=== PATIENT | male | born 1960 | race Caucasian/White ===

== ENCOUNTER 2017-06-12 05:44 | Inpatient (IN) | payer BC, SELFPAY ==
[2017-06-12] VITALS (14 sets, daily range): BP systolic 91–148; BP diastolic 51–97; PULSE 49–131; RESP 12–18; TEMP 36.4–36.9; O2SAT 96–98; BMI 24.7; BMI 24.5; BMI 24.6
--- NOTE | 2017-06-12 05:46 | NURSING ---
CALLED FOR EKG PER RN REQUEST, NO OLD EKG'S IN MUSE
--- NOTE | 2017-06-12 05:56 | EKG12_ITS ---
Test Reason : CP REPEAT Blood Pressure : / mmHG Vent. Rate : 046 BPM Atrial Rate : 046 BPM P-R Int : 152 ms QRS Dur : 170 ms QT Int : 508 ms P-R-T Axes : 022 -50 100 degrees QTc Int : 444 ms Sinus bradycardia Left bundle branch block Abnormal ECG Confirmed by DOMINICK DOCKERY ([id number]), index editor TEODORO OSUNA ([id number] on 06/14/2017 12:07:22 PM Referred By: LAILA Confirmed By:DOMINICK DOCKERY
--- NOTE | 2017-06-12 06:09 | ED.DCSUM_ITS ---
- ER Visit Summary Date of Service: 06/12/17 Chief Complaint: [] Palpitations History of Present Illness: The patient is a 56 M [] complaining of palpitations. He woke with a 2 hours ago. [place] fine prior to going to sleep. He has had a recent workup 10 months ago for palpitations. Has not had anything since. They never caught an abnormal heart rhythm. He is on carvedilol 12.5 mg daily for palpitations. He sees a credit risk manager in [place]. Denies any other associated symptoms. Physical Examination: [] Vital signs reviewed General: Well-nourished well-developed Head: Normocephalic atraumatic Eyes: Pupils equal round and reactive to light extraocular movements intact ENT: TMs clear no hemotympanum no trauma Neck: Nontender full range of motion Cardiovascular: Irregular tachycardia no murmurs normal S1-S2 Respiratory: No distress clear to auscultation bilaterally chest nontender Abdomen: Soft nontender nondistended normal bowel sounds no masses Back: Nontender no CVA tenderness Extremities: Nontender active range of motion ?4 extremities no trauma Skin: Normal color no trauma Neuro alert oriented cranial nerves II through XII intact normal strength sensation reflexes Test Results: [] Emergency Department Course and Treatment: [] EKG shows atrial fibrillation with a left bundle branch block. Rate is 118. Patient given dose of Cardizem. Lab work obtained. CBC normal. Chemistry normal. Troponin less than 0.02. TSH 4.4. T4 pending. Cardizem helped control the patient's rate. Currently he is at a rate of 60 and is asymptomatic. He remains in atrial fibrillation. Discussed with the hospitalist and Dr. Rossi. She given a dose of subcu Lovenox and will be admitted for further evaluation and treatment. Treatment Plan: [] Disposition: [] Impression: [] Atrial fibrillation with rapid ventricular response Critical Care time 74 minutes This note was generated with [employer] dictation software. It may contain incorrect words, spelling, and punctuation that were not noted in review of the chart prior to signing ED Disposition - Plan for ED Patient: Chief Complaint: Palpitations Referrals: [facility] Doctor,Out of [NON-STAFF] -
[2017-06-12] MEDS: dilTIAZem 25 MG/5 ML Vial 20 MG IV BOLUS (06:11)
[2017-06-12 06:18] LABS: Absolute Lymphocyte Count 2.13 X10^3/ul (0.83-4.51); Absolute Neutrophil Count 2.2 X10^3/uL (2.0-7.7); Basophil# 0.05 X10^3/uL; Eosinophil# 0.09 X10^3/uL; Eosinophils% 1.8 % (0-5); Hematocrit 45.8 % (40-54); Hemoglobin 15.6 g/dl (13.0-16.5); Lymphocyte # 2.13 X10^3/ul (4.0); Lymphocyte % 42.9 % (19-41); Mean Corp Hgb Conc 34.1 g/gl (32-36); Mean Corpuscular Hgb 31.5 pg (27.0-32.0); Mean Corpuscular Volume 92.5 fL (80-94); Mean Platelet Vol. 12.2 fl (6.2-12.0); Monocyte# 0.51 X10^3/uL; Monocyte% 10.3 % (0-10); Neutrophil # 2.17 X10^3/uL (2.7-7.7); Neutrophil % 43.8 % (47-70); Platelet Count 157 K/mm3 (150-450); RBC Distribution Width CV 12.9 % (11.6-14.6); Red Blood Count 4.95 M/mm3 (4.6-6.2)
[2017-06-12 06:20] LABS: POSITIVE COUNT NO; POSITIVE DIFFERENTIAL NO; POSITIVE MORPHOLOGY NO
[2017-06-12 06:40] LABS: Anion Gap 9 (5-15); BUN 23 mg/dL (7-18); BUN/Creat Ratio 21.1 RATIO (10-20); Calcium,Total 9.2 mg/dL (8.5-10.1); Chloride 106 mmol/L (98-107); Creatinine, Serum 1.09 mg/dL (0.70-1.30); EST Glomerular Filtration Rate 74 mL/min (>60); Est Glom Filt Rate - Afr Amer 89 mL/min (>60); Estimated Creatinine Clearance 85.89 ml/min; Glucose 124 mg/dL (70-110); Potassium 3.7 mmol/L (3.5-5.1); Sodium Level 140 mmol/L (136-145); Thyroid Stim Hormone (TSH) 4.43 uIU/mL (0.358-3.74)
[2017-06-12 07:06] LABS: T4 Total, Thyroxin 6.6 ug/dL (4.5-12.1)
--- NOTE | 2017-06-12 07:22 | NURSING ---
DR CONNORS IN ER
[2017-06-12] MEDS: Enoxaparin 100 MG/ML Syringe 90 MG SC ×2 (07:30→18:17)
--- NOTE | 2017-06-12 08:00 | NURSING ---
PCU AFIB W RVR WAYLON
--- NOTE | 2017-06-12 10:19 | PCM.CONS.C ---
Problem List (1) Atrial fibrillation Status: Acute (2) Cardiomyopathy Status: Acute (3) Left bundle branch block (LBBB) Status: Acute Reason for Consult Date of Consultation: 06/12/17 Reason for Consultation: Atrial fibrillation, LV dysfunction, left bundle branch block History of Present Illness: The patient is a 56 year old M nondiabetic, previous smoker who quit around 10 years ago after a [id number]-[id number] smoking history, current moderate to heavy drinker of wine several glasses every evening for the past 8 years, had a catheterization approximately 35 years ago and reportedly was normal. He has recently been a patient of Dr. Teran who he saw a proximally 1 year ago for palpitations. At that time he underwent a 2D echo with Doppler on 09/14/16 which suggested an EF of 35%, and an EKG showed left bundle branch block. 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 He reportedly was placed on Coreg, lisinopril, and hydrochlorothiazide, but is never had a heart catheterization. Patient was supposed to have a event monitor but apparently that never happened. Since Dr. Teran's departure, he recently saw Dr. Ware of the [facility] on 06/05/17. A repeat echocardiogram was ordered but not performed. For a long time the patient has complained of palpitations, dating back several years, but has never appreciably had it worked up prior to July 2016. At about 4 this morning the patient awoke with palpitations but no chest pain or anginal symptoms. He reported to [facility] ER where an EKG showed atrial fibrillation with rapid ventricular response in the face of a left bundle branch block. His initial troponin was negative. The patient was given IV Cardizem and has converted back to normal sinus rhythm/sinus bradycardia with left bundle branch block. 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 He denies any angina, chest pain, or shortness of breath. Currently he is resting comfortably, no acute distress.] Past Medical History Allergies/Adverse Reactions: Allergies No Known Allergies Allergy (Verified 06/12/17 05:45) Home Medications: Ambulatory Orders Medication Instructions Recorded Aspirin E.C. [Ecotrin] 81 mg PO DAILY@0800 06/12/17 Carvedilol [Coreg] 12.5 mg PO QHS 06/12/17 Hydrochlorothiazide [Hctz] 12.5 mg PO DAILY 06/12/17 Lisinopril [Zestril] 40 mg PO DAILY 06/12/17 Simvastatin [Zocor] 20 mg PO QHS 06/12/17 Surgical History: no surgical history Smoking Status: Former smoker Review of Systems - Review of Systems General: Denies: Fever, Night Sweats, Fatigue Cardiovascular: Reports: Palpitations. Denies: Chest Discomfort, Shortness of Breath, Orthopnea, PND, Peripheral Edema, Lightheadedness, Dizziness, Near Syncope, Syncope Respiratory: Denies: Cough, Sputum Production, Hemoptysis Gastrointestinal: Denies: Hematemesis, Hematochezia, Melena Genitourinary: Denies: Dysuria, Hematuria Skin: Denies: Rash Subjectve: resting comfortably, no acute distress per Objective: Vital Signs Temp Pulse Resp BP Pulse Ox 98.1 F 51 L 16 148/77 H 97 06/12/17 09:05 06/12/17 09:05 06/12/17 09:05 06/12/17 09:05 06/12/17 09:05 Oxygen Delivery Method Room Air Weight: 191 lb 9.307 oz Body Mass Index (BMI) 24.5 General: Awake, Alert, Oriented x 3 HEENT: PERRL, EOMI, Sclera Non Icteric Neck: Supple, Good ROM, No Lymph Node Enlargement Lungs: Clear to auscultation Cardiovascular: Regular Rhythm, Normal S1, Normal S2, No Murmurs, No Rubs, No Gallops Vascular: No Carotid Bruits, Normal Femoral Pulses, Normal Radial Pulses, Normal Dorsalis Pedal Pulse, Normal Posterior Tibial Pulses Abdomen: Bowel Sounds Present, Soft, Non Tender, No HSM, No Organomegaly Extremities: No Cyanosis, No Clubbing, No edema Neurological: No Focal Motor or Sensory Deficit Rhythm: EKG: Sinus bradycardia with left bundle branch block. ECHO: Pending Stress Test: Cardiac Cath: Pending PCI: CT Surgery: Holter monitor: EPS: PPM: CXR: Chest CT Scan: Assessment/Plan 1. Cardiomyopathy: I am concerned given the patient's age, hypertension, previous tobacco use, known diagnosis of LV dysfunction with an EF by echocardiogram of 35% dated 09/14/16 that he may have coronary artery disease until proven otherwise. I recommended the patient continue baby aspirin, be loaded with Plavix 300 mg ?1 followed by 75 mill grams p.o. daily, and undergo a left her catheterization tomorrow. This will determine whether the patient has an ischemic source of his cardiomyopathy or whether it is a viral, arrhythmic, or alcohol induced cardiomyopathy. The risks/benefits of the procedure were thoroughly explained to the patient including specific attention to lack of on-site surgical backup, and the patient is agreed to proceed. In addition I recommend he undergo a repeat 2D echo with Doppler to determine if his LV function has in any way improved or worsened. I recommend continuing his Coreg, lisinopril, hydrochlorothiazide. Depending upon the outcome of the catheterization and the echocardiogram will determine whether the patient requires evaluation for atrial fibrillation ablation and/or an AICD for primary prophylaxis. I have strongly encouraged the patient to discontinue all alcohol products as this may be contributing to his cardiomyopathy and the patient is agreed. Patient quit smoking many years ago. Patient's TSH is slightly elevated but his T4 appears to be okay. It is doubtful this is a thyroid induced cardiomyopathy. 2. Hyperlipidemia: Patient comes on statin based medications given his suppose it abnormalities on his imaging study 1 year ago. Recommend obtaining a fasting lipid profile. 3. Discussed with Dr. Taylor. Thank you very much for the opportunity to participate in the cardiac care of your patient. Consultation time took place between 830 and 9 AM. Code Visit Inpatient E&M: 03063 Init Hosp L2
[2017-06-12] MEDS: Lisinopril 40 MG Tablet PO (10:30)
[2017-06-12] MEDS: Carvedilol 12.5 MG Tablet PO (10:30)
--- NOTE | 2017-06-12 10:30 | CON.PCM_ITS ---
Problem List (1) Atrial fibrillation Status: Acute (2) Cardiomyopathy Status: Acute (3) Left bundle branch block (LBBB) Status: Acute Reason for Consult Date of Consultation: 06/12/17 Reason for Consultation: Atrial fibrillation, LV dysfunction, left bundle branch block History of Present Illness: The patient is a 56 year old M nondiabetic, previous smoker who quit around 10 years ago after a [id number] smoking history, current moderate to heavy drinker of wine several glasses every evening for the past 8 years, had a catheterization approximately 35 years ago and reportedly was normal. He has recently been a patient of Dr. Teran who he saw a proximally 1 year ago for palpitations. At that time he underwent a 2D echo with Doppler on 09/14/16 which suggested an EF of 35%, and an EKG showed left bundle branch block. 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 He reportedly was placed on Coreg, lisinopril, and hydrochlorothiazide, but is never had a heart catheterization. Patient was supposed to have a event monitor but apparently that never happened. Since Dr. Teran's departure, he recently saw Dr. Ware of the [facility] on 06/05/17. A repeat echocardiogram was ordered but not performed. For a long time the patient has complained of palpitations, dating back several years, but has never appreciably had it worked up prior to July 2016. At about 4 this morning the patient awoke with palpitations but no chest pain or anginal symptoms. He reported to [facility] ER where an EKG showed atrial fibrillation with rapid ventricular response in the face of a left bundle branch block. His initial troponin was negative. The patient was given IV Cardizem and has converted back to normal sinus rhythm/sinus bradycardia with left bundle branch block. 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 He denies any angina, chest pain, or shortness of breath. Currently he is resting comfortably, no acute distress.] Past Medical History Allergies/Adverse Reactions: Allergies No Known Allergies Allergy (Verified 06/12/17 05:45) Home Medications: Ambulatory Orders Medication Instructions Recorded Aspirin E.C. [Ecotrin] 81 mg PO DAILY@0800 06/12/17 Carvedilol [Coreg] 12.5 mg PO QHS 06/12/17 Hydrochlorothiazide [Hctz] 12.5 mg PO DAILY 06/12/17 Lisinopril [Zestril] 40 mg PO DAILY 06/12/17 Simvastatin [Zocor] 20 mg PO QHS 06/12/17 Surgical History: no surgical history Smoking Status: Former smoker Review of Systems - Review of Systems General: Denies: Fever, Night Sweats, Fatigue Cardiovascular: Reports: Palpitations. Denies: Chest Discomfort, Shortness of Breath, Orthopnea, PND, Peripheral Edema, Lightheadedness, Dizziness, Near Syncope, Syncope Respiratory: Denies: Cough, Sputum Production, Hemoptysis Gastrointestinal: Denies: Hematemesis, Hematochezia, Melena Genitourinary: Denies: Dysuria, Hematuria Skin: Denies: Rash Subjectve: resting comfortably, no acute distress per Objective: Vital Signs Temp Pulse Resp BP Pulse Ox 98.1 F 51 L 16 148/77 H 97 06/12/17 09:05 06/12/17 09:05 06/12/17 09:05 06/12/17 09:05 06/12/17 09:05 Oxygen Delivery Method Room Air Weight: 191 lb 9.307 oz Body Mass Index (BMI) 24.5 General: Awake, Alert, Oriented x 3 HEENT: PERRL, EOMI, Sclera Non Icteric Neck: Supple, Good ROM, No Lymph Node Enlargement Lungs: Clear to auscultation Cardiovascular: Regular Rhythm, Normal S1, Normal S2, No Murmurs, No Rubs, No Gallops Vascular: No Carotid Bruits, Normal Femoral Pulses, Normal Radial Pulses, Normal Dorsalis Pedal Pulse, Normal Posterior Tibial Pulses Abdomen: Bowel Sounds Present, Soft, Non Tender, No HSM, No Organomegaly Extremities: No Cyanosis, No Clubbing, No edema Neurological: No Focal Motor or Sensory Deficit Rhythm: EKG: Sinus bradycardia with left bundle branch block. ECHO: Pending Stress Test: Cardiac Cath: Pending PCI: CT Surgery: Holter monitor: EPS: PPM: CXR: Chest CT Scan: Assessment/Plan 1. Cardiomyopathy: I am concerned given the patient's age, hypertension, previous tobacco use, known diagnosis of LV dysfunction with an EF by echocardiogram of 35% dated 09/14/16 that he may have coronary artery disease until proven otherwise. I recommended the patient continue baby aspirin, be loaded with Plavix 300 mg ?1 followed by 75 mill grams p.o. daily, and undergo a left her catheterization tomorrow. This will determine whether the patient has an ischemic source of his cardiomyopathy or whether it is a viral, arrhythmic, or alcohol induced cardiomyopathy. The risks/benefits of the procedure were thoroughly explained to the patient including specific attention to lack of on-site surgical backup, and the patient is agreed to proceed. In addition I recommend he undergo a repeat 2D echo with Doppler to determine if his LV function has in any way improved or worsened. I recommend continuing his Coreg, lisinopril, hydrochlorothiazide. Depending upon the outcome of the catheterization and the echocardiogram will determine whether the patient requires evaluation for atrial fibrillation ablation and/or an AICD for primary prophylaxis. I have strongly encouraged the patient to discontinue all alcohol products as this may be contributing to his cardiomyopathy and the patient is agreed. Patient quit smoking many years ago. Patient's TSH is slightly elevated but his T4 appears to be okay. It is doubtful this is a thyroid induced cardiomyopathy. 2. Hyperlipidemia: Patient comes on statin based medications given his suppose it abnormalities on his imaging study 1 year ago. Recommend obtaining a fasting lipid profile. 3. Discussed with Dr. Taylor. Thank you very much for the opportunity to participate in the cardiac care of your patient. Consultation time took place between 830 and 9 AM. Code Visit Inpatient E&M: 27077 Init Hosp L2
--- NOTE | 2017-06-12 10:40 | CASEMGMT ---
According to the [facility] website, the following are in-network tertiary facilities: [facility], [place], [facility], [facility], [facility], [facility], and . [facility]
[2017-06-12 11:39] LABS: Cholesterol 191 mg/dL (200); High Density Lipoprotein 61 mg/dL; Triglycerides 106 mg/dL; Very Low Density Lipoprotein 21 mg/dL (5-40)
[2017-06-12] MEDS: Clopidogrel Bisulfate 300 MG Tablet PO (12:15)
--- NOTE | 2017-06-12 18:40 | PCM.HP.STD ---
Problem List (1) Palpitations Status: Acute History of Present Illness Date of Admission: 06/12/17 Chief Complaint: Palpitations The patient is a 56 year old M who was seen and examined in the emergency room at [facility] after coming in for evaluation of palpitations which started approximately 4 AM this morning. Patient states he was awoken from sleep with the feeling that his heart was racing. Patient denied any chest pain or shortness of breath. Evaluation in the emergency room revealed the patient to be in atrial fibrillation with a poorly controlled ventricular response of approximately 130, patient's EKG showed atrial fibrillation with a left bundle branch block, labs were obtained on the patient which showed a normal CBC, a BUN that was elevated at 23, a troponin less than 0.02, and a glucose of 124. Patient's TSH was elevated at 4.43 but his T4 was normal. On examination, patient was alert and oriented ?3 and was a good informant, he stated that he had been seen by cardiology approximately a week ago Ros for follow-up of a known cardiomyopathy-patient states his ejection fraction was found to be 35% when he was evaluated in July 2016 by a program administrator here in [place]. Patient also had a stress test around that time which was negative for ischemia. Patient states that at his program administrator's office visit last week, he was scheduled to get an echocardiogram performed this week. Patient will be admitted to PCU, cardiac enzymes will be cycled, he will be seen in consultation by cardiology, he will be maintained on his Coreg and lisinopril, cardiology was contacted (Dr. Rossi) and he advised full anticoagulation with Lovenox. I told the patient was likely that he would undergo a cardiac catheterization for further evaluation of his cardiomyopathy. Past Medical History Allergies No Known Allergies Allergy (Verified 06/12/17 05:45) Home Medications: Ambulatory Orders Medication Instructions Recorded Aspirin E.C. [Ecotrin] 81 mg PO DAILY@0800 06/12/17 Carvedilol [Coreg] 12.5 mg PO QHS 06/12/17 Hydrochlorothiazide [Hctz] 12.5 mg PO DAILY 06/12/17 Lisinopril [Zestril] 40 mg PO DAILY 06/12/17 Simvastatin [Zocor] 20 mg PO QHS 06/12/17 Surgical History: tonsillectomy Psychiatric History: No pertinent psych hx Lives: Alone Smoking Status: Former smoker Alcohol: Occasional - Patient drinks approximately 3 drinks of alcohol nightly on average Drugs: None Review of Systems Constitutional: Denies: Anorexia, Chills, Fever, Night Sweats, Malaise, Weakness, Weight Change, Fatigue Eyes: Denies: Blurred vision, Cataracts, Conjunctivae Inflammation, Double vision, Drainage, Eyelid Inflammation HEENT: Denies: Difficulty Hearing, Difficulty Swallowing, Dysphasia, Ear Pain, Eye Pain, Head Aches, Hearing Changes, Nasal bleeding, Nasal Congestion, Post Nasal Drip Cardiovascular: Reports: Palpitations. Denies: Chest Pain, Claudication, Chest Pressure, Chest Tightness, Edema, Heaviness, Light Headedness, Orthopnea, Paroxysmal Noc. Dyspnea, Syncope Respiratory: Denies: Cough, Hemoptysis, Pleuritic Pain, Shortness of Breath, Shortness of breath at rest, Shortness of breath upon exertion, Sputum production, Wheezing Gastrointestinal: Denies: Abdominal Pain, Constipation, Diarrhea, Hematemesis, Hematochezia, Nausea, Melena, Vomiting Genitourinary: Denies: Dysuria, Frequency, Hematuria, Hesitancy, Incontinence, Nocturia, Retention, Urgency Musculoskeletal: Denies: Back Pain, Foot Pain, Hand Pain, Joint Pain, Joint stiffness, Joint swelling, Joint Tenderness, Leg Pain Skin: Denies: Dryness, Jaundice, Lesions, Pruritis, Rash Neurological: Denies: Blurred vision, Double vision, Change in Speech, Slurred speech, Difficulty swallowing, Focal weakness, Headaches, Incoordination, Numbness, Tingling Psychiatric: Denies: Anxiety, Depression, Homicidal Ideations, Suicidal Ideations Endocrine: Denies: Change in Body Habitus, Heat/ Cold Intolerance, Polydipsia, Polyuria Hematologic/ Lymphatic: Denies: Adenopathy, Anemia, Easy Bruising, Easy Bleeding, Petechiae, Purpura VTE Information - Inpt Only VTE Present on Admission: No VTE Mechan Device Prophylaxis: None VTE Pharm Prophylaxis ordered?: No Reason prophylaxis not ordered:: Medical Contraindication - he will be fully anticoagulated with Lovenox Patient Problems: Active and Suspected Problems Atrial fibrillation (Acute) Cardiomyopathy (Acute) Left bundle branch block (LBBB) (Acute) Palpitations (Acute) - Physical Exam General: Alert, Oriented x3, Cooperative, No apparent distress, Well developed, Well nourished HEENT: Atraumatic, PERRLA, EOMI, Normocephalic Oral: Moist Mucosa Neck: Supple, No JVD, Negative Carotid Bruits, No Nuchal Rigidity, Trachea Midline, Thyroid Normal Size and Texture Lungs: Clear to auscultation, Normal air movement, No rhonchi, No wheeze, No rales Cardiovascular: No murmurs, PMI Normal, Irregular Rate, No rub noted, No Gallop Abdomen: Bowel Sounds Present, Soft, Non Tender, Non-Distended, No hernias noted Extremities: No clubbing, No cyanosis, No edema, Capillary Refill Less than 3 Seconds Skin: No rashes, No breakdown Musculoskeletal: No Tenderness to Palpation of Joints or Extremities Neurological: Cranial nerves II-XII grossly intact, Neuro grossly intact, Sensory exam intact to light touch and pain, Coordination normal Psych/Mental Status: Normal Affect, Appropriate, Alert and oriented to time, place, person, mood and affect Vital Signs Temp Pulse Resp BP Pulse Ox 98.3 F 56 L 16 133/76 H 97 06/12/17 14:00 06/12/17 15:07 06/12/17 14:00 06/12/17 14:00 06/12/17 09:05 Oxygen Delivery Method Room Air Weight: 86.9 kg Body Mass Index (BMI) 24.5 Intake and Output for Last 24 Hours 06/10/17 06/11/17 06/12/17 23:59 23:59 23:59 Intake Total 800 / 800 Balance 800 / 800 Laboratory Tests Past 24 Hrs 06/12/17 06/12/17 06/12/17 10:10 10:10 14:07 Troponin I < 0.02 < 0.02 Triglycerides 106 Cholesterol 191 LDL Cholesterol 109 VLDL Cholesterol 21 HDL Cholesterol 61 Assessment/Plan Active and Suspected Problems Atrial fibrillation (Acute) Cardiomyopathy (Acute) Left bundle branch block (LBBB) (Acute) Palpitations (Acute) #1 acute atrial fibrillation with rapid ventricular response-patient will be admitted to PCU, he will be seen in consultation by cardiology, rate control will be attempted, cardiac enzymes will be cycled, he will remain on full anticoagulation with Lovenox #2 nonischemic cardiomyopathy by history-according to patient's records which I obtained from the [facility], patient has a diagnosis of nonischemic cardiomyopathy. Again, it is likely that cardiology here will recommend a cardiac catheterization to confirm that the patient does not have occlusive coronary disease. #3 left bundle branch block-chronic Code Visit Inpatient E&M: 50382 Init Hosp L3
--- NOTE | 2017-06-12 18:49 | HP.PCM_ITS ---
Problem List (1) Palpitations Status: Acute History of Present Illness Date of Admission: 06/12/17 Chief Complaint: Palpitations The patient is a 56 year old M who was seen and examined in the emergency room at [facility] after coming in for evaluation of palpitations which started approximately 4 AM this morning. Patient states he was awoken from sleep with the feeling that his heart was racing. Patient denied any chest pain or shortness of breath. Evaluation in the emergency room revealed the patient to be in atrial fibrillation with a poorly controlled ventricular response of approximately 130, patient's EKG showed atrial fibrillation with a left bundle branch block, labs were obtained on the patient which showed a normal CBC, a BUN that was elevated at 23, a troponin less than 0.02, and a glucose of 124. Patient's TSH was elevated at 4.43 but his T4 was normal. On examination, patient was alert and oriented ?3 and was a good informant, he stated that he had been seen by cardiology approximately a week ago Ros for follow-up of a known cardiomyopathy-patient states his ejection fraction was found to be 35% when he was evaluated in July 2016 by a project consultant here in [place]. Patient also had a stress test around that time which was negative for ischemia. Patient states that at his project consultant's office visit last week , he was scheduled to get an echocardiogram performed this week. Patient will be admitted to PCU, cardiac enzymes will be cycled, he will be seen in consultation by cardiology, he will be maintained on his Coreg and lisinopril, cardiology was contacted (Dr. Rossi) and he advised full anticoagulation with Lovenox. I told the patient was likely that he would undergo a cardiac catheterization for further evaluation of his cardiomyopathy. Past Medical History Allergies No Known Allergies Allergy (Verified 06/12/17 05:45) Home Medications: Ambulatory Orders Medication Instructions Recorded Aspirin E.C. [Ecotrin] 81 mg PO DAILY@0800 06/12/17 Carvedilol [Coreg] 12.5 mg PO QHS 06/12/17 Hydrochlorothiazide [Hctz] 12.5 mg PO DAILY 06/12/17 Lisinopril [Zestril] 40 mg PO DAILY 06/12/17 Simvastatin [Zocor] 20 mg PO QHS 06/12/17 Surgical History: tonsillectomy Psychiatric History: No pertinent psych hx Lives: Alone Smoking Status: Former smoker Alcohol: Occasional - Patient drinks approximately 3 drinks of alcohol nightly on average Drugs: None Review of Systems Constitutional: Denies: Anorexia, Chills, Fever, Night Sweats, Malaise, Weakness , Weight Change, Fatigue Eyes: Denies: Blurred vision, Cataracts, Conjunctivae Inflammation, Double vision, Drainage, Eyelid Inflammation HEENT: Denies: Difficulty Hearing, Difficulty Swallowing, Dysphasia, Ear Pain, Eye Pain, Head Aches, Hearing Changes, Nasal bleeding, Nasal Congestion, Post Nasal Drip Cardiovascular: Reports: Palpitations. Denies: Chest Pain, Claudication, Chest Pressure, Chest Tightness, Edema, Heaviness, Light Headedness, Orthopnea, Paroxysmal Noc. Dyspnea, Syncope Respiratory: Denies: Cough, Hemoptysis, Pleuritic Pain, Shortness of Breath, Shortness of breath at rest, Shortness of breath upon exertion, Sputum production, Wheezing Gastrointestinal: Denies: Abdominal Pain, Constipation, Diarrhea, Hematemesis, Hematochezia, Nausea, Melena, Vomiting Genitourinary: Denies: Dysuria, Frequency, Hematuria, Hesitancy, Incontinence, Nocturia, Retention, Urgency Musculoskeletal: Denies: Back Pain, Foot Pain, Hand Pain, Joint Pain, Joint stiffness, Joint swelling, Joint Tenderness, Leg Pain Skin: Denies: Dryness, Jaundice, Lesions, Pruritis, Rash Neurological: Denies: Blurred vision, Double vision, Change in Speech, Slurred speech, Difficulty swallowing, Focal weakness, Headaches, Incoordination, Numbness, Tingling Psychiatric: Denies: Anxiety, Depression, Homicidal Ideations, Suicidal Ideations Endocrine: Denies: Change in Body Habitus, Heat/ Cold Intolerance, Polydipsia, Polyuria Hematologic/ Lymphatic: Denies: Adenopathy, Anemia, Easy Bruising, Easy Bleeding , Petechiae, Purpura VTE Information - Inpt Only VTE Present on Admission: No VTE Mechan Device Prophylaxis: None VTE Pharm Prophylaxis ordered?: No Reason prophylaxis not ordered:: Medical Contraindication - he will be fully anticoagulated with Lovenox Patient Problems: Active and Suspected Problems Atrial fibrillation (Acute) Cardiomyopathy (Acute) Left bundle branch block (LBBB) (Acute) Palpitations (Acute) - Physical Exam General: Alert, Oriented x3, Cooperative, No apparent distress, Well developed, Well nourished HEENT: Atraumatic, PERRLA, EOMI, Normocephalic Oral: Moist Mucosa Neck: Supple, No JVD, Negative Carotid Bruits, No Nuchal Rigidity, Trachea Midline, Thyroid Normal Size and Texture Lungs: Clear to auscultation, Normal air movement, No rhonchi, No wheeze, No rales Cardiovascular: No murmurs, PMI Normal, Irregular Rate, No rub noted, No Gallop Abdomen: Bowel Sounds Present, Soft, Non Tender, Non-Distended, No hernias noted Extremities: No clubbing, No cyanosis, No edema, Capillary Refill Less than 3 Seconds Skin: No rashes, No breakdown Musculoskeletal: No Tenderness to Palpation of Joints or Extremities Neurological: Cranial nerves II-XII grossly intact, Neuro grossly intact, Sensory exam intact to light touch and pain, Coordination normal Psych/Mental Status: Normal Affect, Appropriate, Alert and oriented to time, place, person, mood and affect Vital Signs Temp Pulse Resp BP Pulse Ox 98.3 F 56 L 16 133/76 H 97 06/12/17 14:00 06/12/17 15:07 06/12/17 14:00 06/12/17 14:00 06/12/17 09:05 Oxygen Delivery Method Room Air Weight: 86.9 kg Body Mass Index (BMI) 24.5 Intake and Output for Last 24 Hours 06/10/17 06/11/17 06/12/17 23:59 23:59 23:59 Intake Total 800 / 800 Balance 800 / 800 Laboratory Tests Past 24 Hrs 06/12/17 06/12/17 06/12/17 10:10 10:10 14:07 Troponin I < 0.02 < 0.02 Triglycerides 106 Cholesterol 191 LDL Cholesterol 109 VLDL Cholesterol 21 HDL Cholesterol 61 Assessment/Plan Active and Suspected Problems Atrial fibrillation (Acute) Cardiomyopathy (Acute) Left bundle branch block (LBBB) (Acute) Palpitations (Acute) #1 acute atrial fibrillation with rapid ventricular response-patient will be admitted to PCU, he will be seen in consultation by cardiology, rate control will be attempted, cardiac enzymes will be cycled, he will remain on full anticoagulation with Lovenox #2 nonischemic cardiomyopathy by history-according to patient's records which I obtained from the [facility], patient has a diagnosis of nonischemic cardiomyopathy. Again, it is likely that cardiology here will recommend a cardiac catheterization to confirm that the patient does not have occlusive coronary disease. #3 left bundle branch block-chronic Code Visit Inpatient E&M: 75914 Init Hosp L3
[2017-06-12] MEDS: Atorvastatin Calcium 10 MG Tablet PO (22:28)
[2017-06-13] VITALS (16 sets, daily range): BP systolic 125–155; BP diastolic 69–81; PULSE 50–66; RESP 16–18; TEMP 36.4–36.9; O2SAT 91–98
[2017-06-13 05:43] LABS: Absolute Neutrophil Count 2.4 X10^3/uL (2.0-7.7); Basophil# 0.03 X10^3/uL; Basophil% 0.6 % (0-1); Eosinophil# 0.14 X10^3/uL; Eosinophils% 2.6 % (0-5); Hemoglobin 14.9 g/dl (13.0-16.5); Lymphocyte % 43.3 % (19-41); Mean Corp Hgb Conc 33.9 g/gl (32-36); Mean Corpuscular Hgb 31.4 pg (27.0-32.0); Mean Corpuscular Volume 92.8 fL (80-94); Mean Platelet Vol. 12.1 fl (6.2-12.0); Monocyte# 0.48 X10^3/uL; Neutrophil # 2.35 X10^3/uL (2.7-7.7); Neutrophil % 44.3 % (47-70); Platelet Count 136 K/mm3 (150-450); RBC Distribution Width CV 12.8 % (11.6-14.6); RBC Distribution Width SD 43.1 fl (35.1-43.9); Red Blood Count 4.74 M/mm3 (4.6-6.2); White Blood Count 5.3 K/mm3 (4.4-11.0)
[2017-06-13 05:49] LABS: International Normalized Ratio 1.1; Prothrombin Time (Protime)PT. 14.2 SECONDS (11.7-14.9)
[2017-06-13 05:50] LABS: Partial Thromboplast Time 29.5 Seconds (24.1-36.2)
[2017-06-13 05:54] LABS: Anion Gap 8 (5-15); BUN 19 mg/dL (7-18); BUN/Creat Ratio 19.2 RATIO (10-20); Calcium,Total 8.9 mg/dL (8.5-10.1); Chloride 107 mmol/L (98-107); Creatinine, Serum 0.99 mg/dL (0.70-1.30); EST Glomerular Filtration Rate 82 mL/min (>60); Est Glom Filt Rate - Afr Amer 100 mL/min (>60); Estimated Creatinine Clearance 94.56 ml/min; Glucose 109 mg/dL (70-110); Potassium 3.8 mmol/L (3.5-5.1); Sodium Level 141 mmol/L (136-145)
--- NOTE | 2017-06-13 05:55 | EKG12_ITS ---
Test Reason : CP Blood Pressure : / mmHG Vent. Rate : 118 BPM Atrial Rate : 125 BPM P-R Int : 000 ms QRS Dur : 156 ms QT Int : 368 ms P-R-T Axes : 000 -25 102 degrees QTc Int : 515 ms Atrial fibrillation Left bundle branch block Abnormal ECG Confirmed by DOMINICK DOCKERY ([id number]), video editor TEODORO OSUNA ([id number]) on 06/14/2017 12:07:37 PM Referred By: LAILA Confirmed By:DOMINICK DOCKERY
--- NOTE | 2017-06-13 05:55 | ECHOD_ITS ---
Reason For Study: Afib-Flutter Procedure This was a 2D Doppler, Color Flow transthoracic echocardiogram. Exam performed portable in patient room. Left Ventricle Moderately dilated left ventricle. The estimated ejection fraction is 25 %. Septal motion consistent with IVCD. Stage 1 diastolic dysfunction. There is moderate to severe global hypokinesis of the left ventricle. Right Ventricle Mildly dilated right ventricle. Normal systolic function. Atria Normal left atrium. Normal right atrium. Normal atrial septum. Mitral Valve The mitral valve is structurally normal. No prolapse or stenosis seen. Mild (1+) mitral valve insufficiency. Tricuspid Valve Normal tricuspid valve. Mild (1+) tricuspid valve insufficiency. Unable to estimate RV systolic pressure/pulmonary artery pressure due to technically difficult study. Aortic Valve Trisinus/trileaflet aortic valve. Mild diffuse aortic valve thickening. Trivial aortic valve insufficiency. Pulmonic Valve Normal pulmonic valve. Great Vessels Normal aortic root. Normal arch. Normal inferior vena cava. Inferior vena cava collapse with sniff. Pericardium/Pleural No pericardial effusion. MMode/2D Measurements & Calculations LVIDd: 5.7 cm IVSd: 1.5 cm LVOT diam: 2.0 cm LVIDs: 4.8 cm LVPWd: 0.91 cm LVOT area: 3.2 cm2 RVDd: 3.5 cm FS: 16.6 % Ao root diam: 3.8 cm LAV(MOD-bp): 48.9 ml LVAd ap4: 46.6 cm2 ACS: 2.1 cm LAV(MOD-bp) Indexed: 23.0 ml/m2 EDV(MOD-sp4): 180.1 ml LA dimension: 3.8 cm LAV(MOD-sp2): 43.6 ml EDV(sp4-el): 185.4 ml LAV(MOD-sp4): 51.5 ml LVAs ap4: 33.2 cm2 ESV(MOD-sp4): 110.1 ml ESV(sp4-el): 112.6 ml EF(MOD-sp4): 38.8 % EF(sp4-el): 39.3 % SV(MOD-sp4): 70.0 ml SV(sp4-el): 72.8 ml LA A4 area: 18.5 cm2 RA A4 area: 16.1 cm2 Time Measurements MV dec time: 0.31 sec Doppler Measurements & Calculations MV E max robbi: 60.0 cm/sec Med Peak E' Robbi: 5.4 cm/sec MV V2 max: 92.1 cm/sec MV A max robbi: 87.2 cm/sec E/E' med: 11.2 MV max P.4 mmHg MV E/A: 0.69 MV V2 mean: 44.8 cm/sec MV mean P.94 mmHg MV V2 VTI: 23.6 cm MVA(VTI): 3.1 cm2 MV P1/2t max robbi: 72.7 cm/sec Ao V2 max: 151.0 cm/sec LV V1 max: 119.7 cm/sec MV P1/2t: 97.6 msec Ao max P.1 mmHg LV V1 max P.7 mmHg MV dec slope: 218.0 cm/sec2 Ao V2 mean: 91.6 cm/sec LV V1 mean P.4 mmHg MVA(P1/2t): 2.3 cm2 Ao mean P.0 mmHg LV V1 mean: 70.6 cm/sec Ao V2 VTI: 29.3 cm LV V1 VTI: 23.3 cm ESTEBAN(I,D): 2.5 cm2 ESTEBAN(V,D): 2.5 cm2 SV(LVOT): 74.3 ml PA V2 max: 111.0 cm/sec Interpretation Summary Moderately dilated left ventricle. The estimated ejection fraction is 25 %. Stage 1 diastolic dysfunction. There is moderate to severe global hypokinesis of the left ventricle. Mild (1+) mitral valve insufficiency. Mild (1+) tricuspid valve insufficiency. Unable to estimate RV systolic pressure/pulmonary artery pressure due to technically difficult study. Trivial aortic valve insufficiency. There is no comparison study available. Ordering Physician: Yemi Taylor Referring Physician: Anabelle PCP Performed By: Daron Mcdaniel RCS
[2017-06-13 06:21] LABS: POSITIVE COUNT NO; POSITIVE DIFFERENTIAL NO; POSITIVE MORPHOLOGY NO
[2017-06-13] MEDS: Clopidogrel Bisulfate 75 MG Tablet PO (06:59)
[2017-06-13] MEDS: Aspirin 81 MG TAB.CHEW PO (06:59)
[2017-06-13] MEDS: Lisinopril 40 MG Tablet PO (07:00)
[2017-06-13] MEDS: 0.9% Normal Saline 1,000 ML 15 ML IV (08:21)
[2017-06-13] MEDS: DiphenhydrAMINE 25 MG Capsule 50 MG PO (10:20)
--- NOTE | 2017-06-13 11:35 | CL.D_ITS ---
Patient Name: AMPARO LAYTON Study Date: 06/13/2017 Performing: Abdoul Rossi MD Ht: 74.01 inches 188 cm : 1960 Wt: 191.8 lbs 87 kg Age: 56 Gender: male BSA: 2.14 PROCEDURE(S) PERFORMED LH66-CPL/COR/LV CLINICAL PROFILE AND INDICATIONS INDICATIONS: Abnormal cardiac stress test, Dilated Idiopathic Cardiomyopathy, Atrial Fibrillation Stress/Imaging Stress Test w/SPECT MPI: Yes Result: Positive Intermediate RiskStress Test with SP ECT MPI: Positive Intermediate Risk Angina Classification Anginal Classification w/in 2 Weeks: CCS IV CAD Presentations: Unstable angina. Comorbidities/Risk Factors: Hypertension Dyslipidemia Prior CHF CONCLUSIONS Non obstructive coronary arteries Global LV systolic dysfunction- Mild RECOMMENDATIONS ASA Indefinitely Management as per referring President And Chief Executive Officer D/c all ETOH, cardiac rehab and repeat echo in 3 months. If LV function still <35%, consider AICD. D/c plavix, start xarelto or eliquis for PAF and LV dysfunction. Will d/w Dr Owusu Pt wishes to f/u with Dr Rossi. DESCRIPTION OF PROCEDURE The patient arrived to the procedure lab. The risks and benefits of the procedure as well as a full d escription of our services here and current unavailability of surgical backup were fully explained to the patient and/or their significant other prior to the catheterization. The Timeout was completed, verifying the correct patient and procedure. The patient's procedural site was prepped and draped in the usual fashion. Local anesthetic was given subcutaneously to right groin region with Lidocaine 2%. Using a modified Seldinger technique, arterial access was obtained via the right femoral artery, a 4 Fr sheath was inserted Left Coronary Artery selective angiography was performed in multiple views us ing a 4 Fr. JL5 catheter. Right Coronary Artery selective angiography was then performed in multiple views using a 4 Fr. 3DRC catheter. Left Ventriculography was performed in ADAMS projection using a 4 Fr . Pigtail catheter. LV to AO pullback pressures were then recorded. CORONARY ANGIOGRAPHY DOMINANCE: Right Dominant LEFT HEART ASSESSMENT Left Ventricular Ejection Fraction: by LV Gram 45-50 % Global Hypokinesis - Mild Depressed Left Ventricular systolic function LEFT MAIN: Angiographically normal LEFT ANTERIOR DECENDING ARTERY: Angiographically normal DIAGONAL 1: Ostial - 30 % Stenosis CIRCUMFLEX ARTERY: Angiographically normal RAMUS: Angiographically normal RIGHT CORONARY ARTERY: Angiographically normal COMPLICATIONS No Complications PROCEDURE MEDICATIONS Versed 1 mg IV Oxygen: 2 L/min via nasal cannula SUMMARY OF HEMODYNAMIC DATA Time AIR REST ECG 11:06:04 AO 140/73 (98) SA 11:15:22 LV 146/-11, 11 11:21:18 LV 144/-11, 9 11:21:25 LVp 143/-11, 4 11:21:38 AOp 152/66 (94) 11:21:43 Signed By Abdoul Rossi MD On 06/13/2017 11:35:03 Abdoul Rossi MD
--- NOTE | 2017-06-13 12:12 | CASEMGMT ---
Face to Face with patient for initial transition planning/care coordination assessment. RN EDGAR introduced self and role at [facility], pt voices understanding and consents to assessment at this time. Pt sitting up in bed in no distress at this time. Pt A/O x4 at this time and answers all questions appropriately at this time. Care providers, pharmacy, and demographics verified. See attached link. Pt voices no further concerns/needs at this time. Advised pt to ask for CM if any further questions/concerns/needs arise, voices understanding. Referral to Cookie OSEI for AD info at this time. PLAN: [facility]
--- NOTE | 2017-06-13 15:36 | DCINST_ITS ---
- Discharge Diagnoses Current Active Problems: Current Active and Chronic Problems Atrial fibrillation (Acute) Cardiomyopathy (Acute) Left bundle branch block (LBBB) (Acute) Palpitations (Acute) You will use the following diet at home:: No restrictions Your food should be the consistency of: Regular Your liquids should be the consistency of: Regular/Thin Discharge Activity: Return to Normal Activity Weight Bearing Status: Full weight bearing Allergies/Adverse Reactions: Allergies No Known Allergies Allergy (Verified 06/12/17 05:45) Medications to take at Discharge Aspirin E.C. [Ecotrin] 81 mg PO DAILY@0800 06/12/17 Hydrochlorothiazide [Hctz] 12.5 mg PO DAILY 06/12/17 Lisinopril [Zestril] 40 mg PO DAILY 06/12/17 Aspirin [Aspirin, Baby] 81 mg PO DAILY@0800 tab.chew 06/13/17 Atorvastatin Calcium [Lipitor] 40 mg PO DAILY #30 tab 06/13/17 Carvedilol [Coreg (Beta Last)] 12.5 mg PO BID #60 tab 06/13/17 Rivaroxaban [Xarelto] 20 mg PO DAILY #30 tab 06/13/17 The following prescriptions were given: Atorvastatin Calcium [Lipitor] 40 mg PO DAILY #30 tab Rivaroxaban [Xarelto] 20 mg PO DAILY #30 tab Carvedilol [Coreg (Beta Last)] 12.5 mg PO BID #60 tab Primary Care Physician: [facility] Doctor,Out of [NON-STAFF] - Please follow up with your Primary Care Physician in: in 2-3 weeks Please Follow Up With: Abdoul Rossi MD When: in 4 weeks
--- NOTE | 2017-06-13 16:10 | NURSING ---
WALKED PATIENT IN [place] AT THIS TIME WITH TACO STAFUFER AT SIDE. PT DENIES PAIN AT SITE - SITE WNL - NO SIGNS OF BLEEDING OR REDNESS. RLE PULSES +2. PATIENT TO BE DISCHARGED.
--- NOTE | 2017-06-13 16:18 | NURSING ---
REVIEWED AND AGREED W/ Humberto ECHEVERRIA'S CHARTING.
--- NOTE | 2017-06-13 16:38 | NURSING ---
REVIEWED AND AGREED W/ Humberto ECHEVERRIA'S CHARTING.
--- NOTE | 2017-06-17 08:31 | PCM.DC.SUM ---
Discharge Date and Diagnosis Date of Admission: 06/12/17 Date of Discharge: 06/13/17 - Primary Discharge Diagnosis #1 new onset atrial fibrillation with RVR #2 nonischemic cardiomyopathy #3 nonocclusive coronary artery disease #4 hypertension Hospital Course and Treatment Operations: None Procedures: 2-D Echocardiogram, Cardiac catheterization Summary of Care Provided: The patient is a 56 year old M seen in the emergency room at [facility] with chief complaint of palpitations which started early in the morning of 06/12/17, patient has a history of cardiomyopathy, he had recently seen a business services specialist sales in the [place]. Evaluation in the emergency room revealed the patient to be in atrial fibrillation with a rapid ventricular response of 130, patient was given IV Cardizem which slowed his rate. Workup in the emergency room revealed normal troponins, EKG showed atrial fibrillation with left bundle branch block. His care was discussed with the business services specialist sales on-call by the emergency room physician and the hospitalist service was called for admission. Patient was admitted to PCU, shortly thereafter he converted to normal sinus rhythm, was seen in consultation by cardiology and his medications were adjusted. Patient underwent an echocardiogram which showed a reduced ejection fraction of 25%, he underwent a cardiac catheterization which showed nonocclusive coronary artery disease. On 06/13/17, patient was seen and examined felt to be in stable condition for discharge home Discharge Activity: Return to Normal Activity Weight Bearing Status: Full weight bearing Home Medications: Medications to take at Discharge Aspirin E.C. [Ecotrin] 81 mg PO DAILY@0800 06/12/17 Hydrochlorothiazide [Hctz] 12.5 mg PO DAILY 06/12/17 Lisinopril [Zestril] 40 mg PO DAILY 06/12/17 Aspirin [Aspirin, Baby] 81 mg PO DAILY@0800 tab.chew 06/13/17 Atorvastatin Calcium [Lipitor] 40 mg PO DAILY #30 tab 06/13/17 Carvedilol [Coreg (Beta Last)] 12.5 mg PO BID #60 tab 06/13/17 Rivaroxaban [Xarelto] 20 mg PO DAILY #30 tab 06/13/17 Following Prescrptions Were Given to Patient: Atorvastatin Calcium [Lipitor] 40 mg PO DAILY #30 tab Rivaroxaban [Xarelto] 20 mg PO DAILY #30 tab Carvedilol [Coreg (Beta Last)] 12.5 mg PO BID #60 tab Primary Care Physician: Manish Doctor,Out of [NON-STAFF] - Please follow up with your Primary Care Physician in: in 2-3 weeks Please Follow Up With: Abdoul Rossi MD When: in 4 weeks Disposition: Home Minutes spent on discharge:: 32 Patient Condition:: Stable Meaningful Use Info Meaningful Use Diagnoses (Choose all that apply): None applicable Code Visit Inpatient E&M: 46780 Disch Hosp
--- NOTE | 2017-06-17 08:36 | DS.PCM_ITS ---
Discharge Date and Diagnosis Date of Admission: 06/12/17 Date of Discharge: 06/13/17 - Primary Discharge Diagnosis #1 new onset atrial fibrillation with RVR #2 nonischemic cardiomyopathy #3 nonocclusive coronary artery disease #4 hypertension Hospital Course and Treatment Operations: None Procedures: 2-D Echocardiogram, Cardiac catheterization Summary of Care Provided: The patient is a 56 year old M seen in the emergency room at [facility] with chief complaint of palpitations which started early in the morning of 06/12/17, patient has a history of cardiomyopathy, he had recently seen a associate professor of surgery in the [place]. Evaluation in the emergency room revealed the patient to be in atrial fibrillation with a rapid ventricular response of 130, patient was given IV Cardizem which slowed his rate. Workup in the emergency room revealed normal troponins, EKG showed atrial fibrillation with left bundle branch block. His care was discussed with the associate professor of surgery on-call by the emergency room physician and the hospitalist service was called for admission. Patient was admitted to PCU, shortly thereafter he converted to normal sinus rhythm, was seen in consultation by cardiology and his medications were adjusted. Patient underwent an echocardiogram which showed a reduced ejection fraction of 25%, he underwent a cardiac catheterization which showed nonocclusive coronary artery disease. On 06/13/17, patient was seen and examined felt to be in stable condition for discharge home Discharge Activity: Return to Normal Activity Weight Bearing Status: Full weight bearing Home Medications: Medications to take at Discharge Aspirin E.C. [Ecotrin] 81 mg PO DAILY@0800 06/12/17 Hydrochlorothiazide [Hctz] 12.5 mg PO DAILY 06/12/17 Lisinopril [Zestril] 40 mg PO DAILY 06/12/17 Aspirin [Aspirin, Baby] 81 mg PO DAILY@0800 tab.chew 06/13/17 Atorvastatin Calcium [Lipitor] 40 mg PO DAILY #30 tab 06/13/17 Carvedilol [Coreg (Beta Last)] 12.5 mg PO BID #60 tab 06/13/17 Rivaroxaban [Xarelto] 20 mg PO DAILY #30 tab 06/13/17 Following Prescrptions Were Given to Patient: Atorvastatin Calcium [Lipitor] 40 mg PO DAILY #30 tab Rivaroxaban [Xarelto] 20 mg PO DAILY #30 tab Carvedilol [Coreg (Beta Last)] 12.5 mg PO BID #60 tab Primary Care Physician: Manish Doctor,Out of [NON-STAFF] - Please follow up with your Primary Care Physician in: in 2-3 weeks Please Follow Up With: Abdoul Rossi MD When: in 4 weeks Disposition: Home Minutes spent on discharge:: 32 Patient Condition:: Stable Meaningful Use Info Meaningful Use Diagnoses (Choose all that apply): None applicable Code Visit Inpatient E&M: 49928 Disch Hosp
== END 2017-06-13 16:27 | disposition home or self-care (01) | DRG 287 ==
LOC: ED 06:40 → PCU 08:09
PROVIDERS: Internal Medicine Cardiovascular Disease; Admitting Provider Internal Medicine; Emergency Provider Emergency Medicine; Visit Provider Internal Medicine
DX: I48.91 Unspecified atrial fibrillation (principal); I42.9 Cardiomyopathy, unspecified; I44.7 Left bundle-branch block, unspecified; Z87.891 Personal history of nicotine dependence; I10 Essential (primary) hypertension; I25.10 Atherosclerotic heart disease of native coronary artery without angina pectoris
CPT/HCPCS: 36415; 80048; 80061; 84436; 84443; 84484; 85025; 85610; 85730; 93005; 93306; 93458; 99152; 99283; 99406; J7030; A4216; C1769; C1894; Q9967

== ENCOUNTER → 2017-09-26 09:45 | Outpatient (CLI) | payer BC, SELFPAY ==
--- NOTE | 2017-09-26 09:47 | ECHOD_ITS ---
Reason For Study: Cardiomyopathy Procedure This was a 2D Doppler, Color Flow transthoracic echocardiogram. The study was technically difficult. Exam performed in department. Left Ventricle Severely dilated left ventricle. The estimated ejection fraction is 25 %. Septal motion consistent with IVCD. Stage 2 diastolic dysfunction. There is severe global hypokinesis of the left ventricle. Right Ventricle Normal size and thickness. Normal systolic function. Atria Normal left atrium. Normal right atrium. Normal atrial septum. Mitral Valve The mitral valve is structurally normal. No prolapse or stenosis seen. Mild (1+) mitral valve insufficiency. Tricuspid Valve Normal tricuspid valve. Trivial tricuspid valve insufficiency. Right ventricular systolic pressure estimated to be 39 mmHg. Mild pulmonary hypertension. Aortic Valve Trisinus/trileaflet aortic valve. Mild diffuse aortic valve thickening. Trivial aortic valve insufficiency. Pulmonic Valve Normal pulmonic valve. Trivial pulmonic valve insufficiency. Great Vessels Normal aortic root. Normal arch. Normal inferior vena cava. Inferior vena cava collapse with sniff. Pericardium/Pleural No pericardial effusion. MMode/2D Measurements & Calculations LVIDd: 5.7 cm IVSd: 1.5 cm Ao root diam: 3.8 cm LVIDs: 4.5 cm LVPWd: 1.2 cm LA dimension: 4.2 cm RVDd: 3.1 cm FS: 20.7 % LAV(MOD-bp): 72.0 ml LA A4 area: 18.6 cm2 RA A4 area: 16.0 cm2 LAV(MOD-bp) Indexed: 33.8 ml/m2 LAV(MOD-sp2): 56.4 ml LAV(MOD-sp4): 62.9 ml Doppler Measurements & Calculations MV E max robbi: 60.8 cm/sec Lat Peak E' Robbi: 6.5 cm/sec Med Peak E' Robbi: 5.0 cm/sec MV A max robbi: 85.3 cm/sec E/E' lat: 9.3 E/E' med: 12.2 MV E/A: 0.71 Ao V2 max: 122.2 cm/sec LV V1 max: 87.6 cm/sec PA V2 max: 69.1 cm/sec Ao max P.0 mmHg LV V1 max P.1 mmHg TR max robbi: 281.4 cm/sec TR max P.8 mmHg Interpretation Summary Severely dilated left ventricle. The estimated ejection fraction is 25 %. There is severe global hypokinesis of the left ventricle. Stage 2 diastolic dysfunction. Mild (1+) mitral valve insufficiency. Trivial tricuspid valve insufficiency. Right ventricular systolic pressure estimated to be 39 mmHg. Mild pulmonary hypertension. Trivial aortic valve insufficiency. Compared to echo report dated 06/13/2017, no appreciable changes noted. Ordering Physician: Saqib Etienne Referring Physician: NO PCP Performed By: Poonam Roca RDCS, RVT
== END ==
PROVIDERS: Visit Provider Nurse Practitioner Family
DX: I42.9 Cardiomyopathy, unspecified (principal); I48.91 Unspecified atrial fibrillation; R00.2 Palpitations
CPT/HCPCS: 93306

== ENCOUNTER → 2018-07-10 07:50 | Outpatient (CLI) | payer BC, SELFPAY ==
[2018-04-18 15:02] VITALS: BMI 23.6
--- NOTE | 2018-07-10 07:51 | ECHOCS_ITS ---
Reason For Study: CHF Procedure Contrast injection was performed. Exam performed in department. Left Ventricle Moderately dilated left ventricle. Mid cavitary false tendon noted. The estimated ejection fraction is 35-40 %. Stage 1 diastolic dysfunction. Septal motion consistent with IVCD. There is moderate to severe global hypokinesis of the left ventricle. Right Ventricle Normal size and thickness. ICD or pacer leads identified within the right ventricle. Normal systolic function. Atria Normal left atrium. Normal right atrium. Normal atrial septum. Saline contrast study demonstrates small right to left interatrial shunt. Mitral Valve The mitral valve is structurally normal. No prolapse or stenosis seen. Mild (1+) mitral valve insufficiency. Tricuspid Valve Normal tricuspid valve. Mild (1+) tricuspid valve insufficiency. Right ventricular systolic pressure estimated to be 17 mmHg. Aortic Valve Normal aortic valve. Trisinus/trileaflet aortic valve. Pulmonic Valve Normal pulmonic valve. Great Vessels Normal aortic root. Normal arch. Normal inferior vena cava. Inferior vena cava collapse with sniff. Pericardium/Pleural No pericardial effusion. Medication Performed a rapid injection of agitated mix of 9 cc saline and 1cc air to assess for atrial septal defect. Definity0.4ml given slow IV push to enhance endocardial definition. MMode/2D Measurements & Calculations LVIDd: 5.3 cm IVSd: 1.2 cm Ao root diam: 3.1 cm LVIDs: 4.1 cm LVPWd: 1.0 cm RVDd: 3.7 cm FS: 22.2 % LAV(MOD-bp): 42.7 ml LVAd ap4: 37.9 cm2 SV(MOD-sp4): 56.6 ml LAV(MOD-bp) Indexed: 20.3 ml/m2 EDV(MOD-sp4): 135.0 ml LAV(MOD-sp2): 53.5 ml EDV(sp4-el): 137.9 ml LAV(MOD-sp4): 25.9 ml LVAs ap4: 25.7 cm2 ESV(MOD-sp4): 78.5 ml ESV(sp4-el): 76.6 ml EF(MOD-sp4): 41.9 % EF(sp4-el): 44.5 % SV(sp4-el): 61.3 ml LA A4 area: 11.5 cm2 LA dimension(2D): 3.6 cm RA A4 area: 14.3 cm2 Doppler Measurements & Calculations MV E max robbi: 50.5 cm/sec Lat Peak E' Robbi: 7.9 cm/sec Med Peak E' Robbi: 5.8 cm/sec MV A max robbi: 62.4 cm/sec E/E' lat: 6.4 E/E' med: 8.7 MV E/A: 0.81 Ao V2 max: 124.9 cm/sec AI max robbi: 343.8 cm/sec LV V1 max: 98.7 cm/sec Ao max P.2 mmHg AI max P.3 mmHg LV V1 max P.9 mmHg Ao V2 mean: 91.8 cm/sec Ao mean P.7 mmHg AI dec slope: 150.6 cm/sec2 Ao V2 VTI: 21.4 cm AI P1/2t: 668.4 msec PA V2 max: 110.3 cm/sec TR max robbi: 220.9 cm/sec TR max P.5 mmHg Interpretation Summary Moderately dilated left ventricle. The estimated ejection fraction is 35-40 %. Stage 1 diastolic dysfunction. There is moderate to severe global hypokinesis of the left ventricle. Mild (1+) mitral valve insufficiency. Mild (1+) tricuspid valve insufficiency. Right ventricular systolic pressure estimated to be 17 mmHg. Compared to echo report dated 09/26/2017, LV function has mildly improved from 25% to 35%. The study was technically difficult. Contrast injection was performed. Ordering Physician: Abdoul Rossi Referring Physician: Yemi Frazier Performed By: Minnie Etienne RDCS, RVT
== END ==
PROVIDERS: Family Provider Family Medicine; PCP Family Medicine; Referring Provider Internal Medicine Cardiovascular Disease; Visit Provider Internal Medicine Cardiovascular Disease
DX: I50.9 Heart failure, unspecified (principal); I48.91 Unspecified atrial fibrillation; I42.9 Cardiomyopathy, unspecified; Z95.810 Presence of automatic (implantable) cardiac defibrillator
CPT/HCPCS: 93306; Q9957; A4216; C8929

== ENCOUNTER → 2019-12-15 09:20 | Outpatient (CLI) | payer OTHER, SELFPAY ==
[2019-12-15 08:51] VITALS: BMI 23.6
[2019-12-15 12:28] LABS: Absolute Lymphocyte Count 1.69 X10^3/uL (0.83-4.51); Absolute Neutrophil Count 3.4 X10^3/uL (2.0-7.7); Basophil# 0.06 X10^3/uL; Eosinophil# 0.11 X10^3/uL; Eosinophils% 1.9 % (0-5); Hematocrit 45.7 % (40-54); Lymphocyte # 1.69 X10^3/ul (4.0); Mean Corp Hgb Conc 32.8 g/dL (32-36); Mean Corpuscular Hgb 30.9 pg (27.0-32.0); Mean Corpuscular Volume 94.2 fL (80-94); Mean Platelet Vol. 12.2 fl (6.2-12.0); Monocyte# 0.51 X10^3/uL; Monocyte% 8.7 % (0-10); NRBC Flagged by Analyzer 0 % (0-5); Neutrophil # 3.44 X10^3/uL (2.7-7.7); Neutrophil % 59.1 % (47-70); Platelet Count 145 K/mm3 (150-450); RBC Distribution Width CV 12.3 % (11.6-14.6); RBC Distribution Width SD 42.3 fl (35.1-43.9); Red Blood Count 4.85 M/mm3 (4.6-6.2); White Blood Count 5.8 K/mm3 (4.4-11.0)
[2019-12-15 13:17] LABS: ALB/GLOB Ratio 1.4 RATIO (0.9-2.4); AST(SGOT) 27 U/L (15-37); Alanine Aminotransfer ALT/SGPT 46 U/L (16-61); Albumin, Serum 4.1 g/dL (3.2-5.0); Alkaline Phosphatase 54 U/L (45-117); Anion Gap 4 (5-15); BUN 15 mg/dL (7-18); BUN/Creat Ratio 15.5 RATIO (10-20); Calcium,Total 9.3 mg/dL (8.5-10.1); Chloride 105 mmol/L (98-107); Cholesterol 131 mg/dL (200); Creatinine, Serum 0.97 mg/dL (0.70-1.30); EST Glomerular Filtration Rate 84 mL/min (>60); Est Glom Filt Rate - Afr Amer 101 mL/min (>60); Glucose 110 mg/dL (74-106); High Density Lipoprotein 55 mg/dL; Potassium 4.3 mmol/L (3.5-5.1); Protein, Total 7.1 g/dL (6.4-8.2); Sodium Level 137 mmol/L (136-145); Triglycerides 76 mg/dL; Very Low Density Lipoprotein 15 mg/dL (5-40)
== END ==
PROVIDERS: PCP Internal Medicine; Referring Provider Internal Medicine; Visit Provider Internal Medicine
DX: E78.5 Hyperlipidemia, unspecified (principal); I48.91 Unspecified atrial fibrillation
CPT/HCPCS: 36415; 80053; 80061; 85025

== ENCOUNTER → 2020-03-15 08:40 | Outpatient (CLI) | payer OTHER, SELFPAY ==
[2020-03-15 08:20] VITALS: BMI 22.5
[2020-03-15 12:20] LABS: Hematocrit 44.8 % (40-54)
[2020-03-15 12:52] LABS: Anion Gap 6 (5-15); BUN 16 mg/dL (7-18); BUN/Creat Ratio 15.2 RATIO (10-20); Calcium,Total 9.5 mg/dL (8.5-10.1); Chloride 107 mmol/L (98-107); Creatinine, Serum 1.05 mg/dL (0.70-1.30); EST Glomerular Filtration Rate 76 mL/min (>60); Est Glom Filt Rate - Afr Amer 92 mL/min (>60); Glucose 120 mg/dL (74-106); Magnesium 2.1 mg/dL (1.6-2.6); Potassium 4.2 mmol/L (3.5-5.1); Sodium Level 141 mmol/L (136-145); Thyroid Stim Hormone (TSH) 2.62 uIU/mL (0.358-3.74)
== END ==
PROVIDERS: Physician Assistant Medical; PCP Internal Medicine; Visit Provider Internal Medicine
DX: I48.91 Unspecified atrial fibrillation (principal); R00.2 Palpitations; Z95.810 Presence of automatic (implantable) cardiac defibrillator
CPT/HCPCS: 36415; 80048; 83735; 84443; 85014; 85018

== ENCOUNTER → 2020-03-23 10:49 | Outpatient (CLI) | payer OTHER, SELFPAY ==
[2020-03-15 08:20] VITALS: BMI 22.5
--- NOTE | 2020-03-23 10:50 | ECHOD_ITS ---
Reason For Study: CMP Procedure This was a 2D Doppler, Color Flow transthoracic echocardiogram. Exam performed in department. Left Ventricle Normal LV size. Mild concentric left ventricular hypertrophy. The estimated ejection fraction is 50 %. There is mild to moderate global hypokinesis of the left ventricle. Right Ventricle Normal RV size. ICD or pacer leads identified within the right ventricle. Normal systolic function. Aortic Valve Normal aortic valve. Trisinus/trileaflet aortic valve. Pulmonic Valve Normal pulmonic valve. Great Vessels Normal aortic root. The pulmonary artery is normal size. Normal inferior vena cava. Pericardium/Pleural No pericardial effusion. MMode/2D Measurements & Calculations LVIDd: 5.0 cm IVSd: 1.4 cm LA dimension: 3.8 cm LVIDs: 3.9 cm LVPWd: 1.4 cm RVDd: 3.8 cm FS: 22.3 % LAV(MOD-bp): 75.1 ml LA A4 area: 20.0 cm2 RA A4 area: 17.0 cm2 LAV(MOD-bp) Indexed: 35.8 ml/m2 LAV(MOD-sp2): 74.8 ml LAV(MOD-sp4): 62.5 ml Time Measurements MV dec time: 0.22 sec Doppler Measurements & Calculations MV E max robbi: 66.3 cm/sec Lat Peak E' Robbi: 11.5 cm/sec Med Peak E' Robbi: 8.0 cm/sec MV A max robbi: 50.7 cm/sec E/E' lat: 5.8 E/E' med: 8.3 MV E/A: 1.3 MV V2 max: 69.2 cm/sec MV P1/2t max robbi: 69.2 cm/sec Ao V2 max: 119.8 cm/sec MV max P.9 mmHg MV P1/2t: 62.6 msec Ao max P.7 mmHg MV V2 mean: 31.8 cm/sec MV dec slope: 323.8 cm/sec2 MV mean P.50 mmHg MV V2 VTI: 20.3 cm MVA(P1/2t): 3.5 cm2 LV V1 max: 102.5 cm/sec PA V2 max: 128.1 cm/sec LV V1 max P.2 mmHg Interpretation Summary Normal LV size. Mild concentric left ventricular hypertrophy. There is mild to moderate global hypokinesis of the left ventricle. The estimated ejection fraction is 50 %. Normal RV size. ICD or pacer leads identified within the right ventricle. Normal systolic function. Ordering Physician: Day Laguerre Referring Physician: Patricia Nguyen Performed By: Daron Mcdaniel RCS
== END ==
PROVIDERS: PCP Internal Medicine; Referring Provider Physician Assistant Medical; Visit Provider Physician Assistant Medical
DX: I48.0 Paroxysmal atrial fibrillation (principal); R00.2 Palpitations; I42.9 Cardiomyopathy, unspecified; I10 Essential (primary) hypertension; Z95.810 Presence of automatic (implantable) cardiac defibrillator
CPT/HCPCS: 93225; 93226; 93306

== ENCOUNTER 2020-08-03 14:15 | Outpatient (RCR) | payer OTHER, SELFPAY ==
[2020-06-15 08:22] VITALS: BMI 23.2
[2020-08-03] MEDS: COVID-19 VACC, MRNA(PFIZER)/PF 30 MCG/0.3 ML SYRINGE IM (08:23)
[2020-08-24] MEDS: COVID-19 VACC, MRNA(PFIZER)/PF 30 MCG/0.3 ML SYRINGE IM (08:18)
== END 2020-10-26 23:59 ==
LOC: IMMUN 14:15
PROVIDERS: PCP Internal Medicine; Visit Provider Family Medicine
DX: Z23 Encounter for immunization (principal)
CPT/HCPCS: 0001A; 0002A; 91300

== ENCOUNTER → 2020-12-28 08:32 | Outpatient (CLI) | payer OTHER, SELFPAY ==
[2020-12-28 08:08] VITALS: BMI 22.5
[2020-12-28 12:17] LABS: Absolute Lymphocyte Count 1.34 X10^3/uL (0.83-4.51); Basophil# 0.06 X10^3/uL; Basophil% 1.2 % (0-1); Eosinophil# 0.08 X10^3/uL; Eosinophils% 1.6 % (0-5); Hematocrit 42.4 % (40-54); Lymphocyte # 1.34 X10^3/ul (0.83-4.51); Lymphocyte % 27.1 % (19-41); Mean Corpuscular Hgb 30.2 pg (27.0-32.0); Mean Corpuscular Volume 91.4 fL (80-94); Mean Platelet Vol. 12.3 fl (6.2-12.0); Monocyte# 0.48 X10^3/uL; Monocyte% 9.7 % (0-10); NRBC Flagged by Analyzer 0 % (0-5); Neutrophil # 2.98 X10^3/uL (2.7-7.7); Neutrophil % 60.2 % (47-70); Platelet Count 163 K/mm3 (150-450); RBC Distribution Width CV 12.5 % (11.6-14.6); RBC Distribution Width SD 41.6 fl (35.1-43.9); Red Blood Count 4.64 M/mm3 (4.6-6.2)
[2020-12-28 12:25] LABS: Uric Acid 5.4 mg/dL (3.5-7.2)
[2020-12-28 12:41] LABS: ALB/GLOB Ratio 1.3 RATIO (0.9-2.4); AST(SGOT) 27 U/L (15-37); Alanine Aminotransfer ALT/SGPT 44 U/L (16-61); Albumin, Serum 3.8 g/dL (3.2-5.0); Alkaline Phosphatase 63 U/L (45-117); Anion Gap 5 (5-15); BUN 12 mg/dL (7-18); BUN/Creat Ratio 14.6 RATIO (10-20); Calcium,Total 9.1 mg/dL (8.5-10.1); Chloride 106 mmol/L (98-107); Cholesterol 126 mg/dL (200); Creatinine, Serum 0.82 mg/dL (0.70-1.30); EST Glomerular Filtration Rate 101 mL/min (>60); Est Glom Filt Rate - Afr Amer 122 mL/min (>60); Glucose 107 mg/dL (74-106); High Density Lipoprotein 47 mg/dL; Potassium 4.4 mmol/L (3.5-5.1); Protein, Total 6.8 g/dL (6.4-8.2); Sodium Level 139 mmol/L (136-145); Triglycerides 97 mg/dL; Very Low Density Lipoprotein 19 mg/dL (5-40)
== END ==
PROVIDERS: Physician Assistant; PCP Internal Medicine; Referring Provider Nurse Practitioner Family; Visit Provider Nurse Practitioner Family
DX: I10 Essential (primary) hypertension (principal); E78.2 Mixed hyperlipidemia; M10.9 Gout, unspecified; Z12.5 Encounter for screening for malignant neoplasm of prostate
CPT/HCPCS: 36415; 80053; 80061; 84153; 84443; 84550; 85025; G0103

== ENCOUNTER 2021-06-08 09:29 | Outpatient (CLI) | payer OTHER, SELFPAY ==
[2021-06-08 12:17] LABS: Absolute Lymphocyte Count 1.33 X10^3/uL (0.83-4.51); Absolute Neutrophil Count 4.6 X10^3/uL (2.0-7.7); Basophil# 0.06 X10^3/uL; Basophil% 0.9 % (0-1); Eosinophil# 0.11 X10^3/uL; Eosinophils% 1.7 % (0-5); Hemoglobin 13.7 g/dL (13.0-16.5); Lymphocyte # 1.33 X10^3/ul (0.83-4.51); Lymphocyte % 20.1 % (19-41); Mean Corp Hgb Conc 32.6 g/dL (32-36); Mean Corpuscular Hgb 30.9 pg (27.0-32.0); Mean Corpuscular Volume 94.6 fL (80-94); Mean Platelet Vol. 12.2 fl (6.2-12.0); Monocyte% 7.6 % (0-10); NRBC Flagged by Analyzer 0 % (0-5); Neutrophil # 4.59 X10^3/uL (2.7-7.7); Neutrophil % 69.4 % (47-70); Platelet Count 171 K/mm3 (150-450); RBC Distribution Width CV 12.5 % (11.6-14.6); RBC Distribution Width SD 43.4 fl (35.1-43.9); Red Blood Count 4.44 M/mm3 (4.6-6.2); White Blood Count 6.6 K/mm3 (4.4-11.0)
[2021-06-08 12:29] LABS: Anion Gap 5 (5-15); BUN 18 mg/dL (7-18); BUN/Creat Ratio 20.6 RATIO (10-20); Calcium,Total 9.5 mg/dL (8.5-10.1); Chloride 108 mmol/L (98-107); Creatinine, Serum 0.88 mg/dL (0.70-1.30); EST Glomerular Filtration Rate 94 mL/min (>60); Est Glom Filt Rate - Afr Amer 113 mL/min (>60); Glucose 109 mg/dL (74-106); Potassium 4.2 mmol/L (3.5-5.1); Sodium Level 140 mmol/L (136-145)
== END 2021-06-08 23:59 | disposition short-term general hospital (02) ==
LOC: BIMLAB 09:29
PROVIDERS: PCP Internal Medicine; Referring Provider Internal Medicine; Visit Provider Internal Medicine
DX: I10 Essential (primary) hypertension (principal); I48.0 Paroxysmal atrial fibrillation
CPT/HCPCS: 36415; 80048; 85025

== ENCOUNTER 2021-11-11 09:23 | Day surgery (SDC) | payer OTHER, SELFPAY ==
[2021-11-11] VITALS (7 sets, daily range): BP systolic 105–126; BP diastolic 67–78; PULSE 60–62; RESP 16–18; TEMP 36.1–36.6; O2SAT 99–100; BMI 21.8
[2021-11-11] MEDS: Lactated Ringers 1,000 ML 15 ML IV (09:45)
--- NOTE | 2021-11-11 10:30 | COLBX_PTH ---
PATIENT: AMPARO LAYTON LOC: EN U#:[id number] AGE/SX: 61/M ROOM: RE11/11/[address]: Dr. Julián Mccoy MD : 1960 BED: DIS: 11/11/2021 SPEC #: [id number] RECD: 11/11/21 12:26 STATUS: RACHELE NEERAJ #: [id number] DALE: 11/11/21 10:[address]: Julián Mccoy DEPT: SURGICAL PATHOLOGY RECD BY: Trinh Crowell ENTERED: 11/11/21 12:53 SP TYPE: COLON BX OTHR DR: Dr. Patricia Nguyen MD Tissues: Transverse colon Procedures: Surgery Specimen Level IV HEADER OPERATION: Colonoscopy with biopsy ? open access (MAC) PRE-OP DIAGNOSIS: Colon cancer screening TISSUE SUBMITTED: Distal transverse colon polyps MICROSCOPIC DIAGNOSIS Distal transverse colon polyps, biopsy: Fragments of hyperplastic polyp. SJ:gustavo 11/14/2021 MICROSCOPIC DESCRIPTION Slides are reviewed. GROSS DESCRIPTION Received in fixative is one container labeled with the patient's name and designated distal transverse colon polyp. The specimen consists of multiple irregular fragments of light camp soft tissue that in aggregate measure 0.8 x 0.4 x 0.1 cm. The specimen is totally submitted in one cassette. / SJ:rg 11/11/2021 TC:3 CPT: 10882
--- NOTE | 2021-11-11 10:39 | HP.PCM_ITS ---
HPI - General General Date of Service: 11/11/21 Chief Complaint: Screening for intestinal cancer HPI Narrative AMPARO LAYTON, is a 61 M who presents presents for screening colonoscopy. He presents via open access. He does have a pacemaker defibrillator in place. Sta shant he has no issues with that. States he is not on any anticoagulant. He states he otherwise enjoys good health [facility] Medical History (Updated 11/10/21 @ 14:40 by Lashanda Najera) Colon cancer screening Essential (primary) hypertension Gout Health care maintenance High cholesterol Left bundle branch block (LBBB) Non-ischemic cardiomyopathy Pacemaker Paroxysmal atrial fibrillation Right knee pain Wears glasses Home Medications koojztkrjmta-Um-czfq-minerals 18 mg-0.4 mg tablet (Maximum Daily Multivitamin) 1 tab PO DAILY 12/02/19 [History Last Taken Unknown] allopurinol 100 mg tablet 100 mg PO BID #180 tabs 10/20/21 [Rx Last Taken Unknown] amlodipine 5 mg tablet 5 mg PO DAILY #90 tabs 10/20/21 [Rx Last Taken 11/11/21] atorvastatin 40 mg tablet 40 mg PO DAILY #90 tabs 10/20/21 [Rx Last Taken Unknown] carvedilol 6.25 mg tablet (Coreg) 6.25 mg PO BID #180 tabs 10/20/21 [Rx Last Taken Unknown] lisinopril 40 mg tablet 40 mg PO DAILY blood pressure #90 tabs 10/20/21 [Rx Last Taken 11/11/21] Allergy/AdvReac Type Severity Reaction Status Date / Time No Known Allergies Allergy Verified 11/11/21 10:00 Family History Unknown No problems noted. Mother Alzheimer's dementia Mother Hypertension Father CVA (cerebral vascular accident) Hypertension Surgical History Biventricular implantable cardioverter-defibrillator (ICD) in situ (03/07/18) History of left heart catheterization (06/13/17) History of radiofrequency ablation procedure for cardiac arrhythmia (03/07/18) Social History Smoking Status: Never smoker alcohol intake: current alcohol intake frequency: a few times a month ROS Constitutional Constitutional: Reports systems reviewed and no addt'l complaints, except as documented Cardiovascular Cardiovascular: Denies chest pain Respiratory/Chest Respiratory/Chest: Denies shortness of breath at rest Gastrointestinal Gastrointestinal: Denies abdominal pain, change in bowel habits, hematochezia or melena Vital Signs Vital Signs Vital Signs: 11/11/21 09:57 11/11/21 09:57 Temperature 97.2 F L Temperature Source Temporal Pulse Rate 60 Respiratory Rate 18 Respiratory Pattern Normal Blood Pressure 111/68 Blood Pressure Mean 82 Blood Pressure Source Monitor Blood Pressure Position Semi-Fowlers Blood Pressure Location Left Arm Pulse Ox 100 Oxygen Delivery Method Room Air Weight Weight: 174 lb 9.698 oz Body Mass Index (BMI) 21.8 Physical Exam Const alert, oriented x3 and no apparent distress General Appearance: cooperative and comfortable Eyes General Eye: normal appearance of both eyes Neck General: normal visual inspection Chest inspection of chest normal Chest Narrative: Left upper chest pacemaker defibrillator Resp Effort and Inspection: able to speak in complete sentences and symmetric chest movement Auscultation: clear to auscultation bilaterally Cardio regular rate and regular rhythm GI soft to palpation, non-tender and non-distended Extremity no calf tenderness Neuro oriented x3 Psych thought process normal Assessment & Plan Assessment/Plan (1) Colon cancer screening: PLAN: Plan The patient presents via open access today for screening colonoscopy. He is aware of the technique, benefit, risk, alternatives. He has had an opportunity to ask and have questions answered. We will proceed as noted. We will utilize monitored anesthesia care. Julián Mccoy M.D., F.A.C.S.
--- NOTE | 2021-11-11 11:46 | OP.COLON_ITS ---
Patient Name: Saqib Mcdaniel Procedure Date: 11/11/2021 11:11 AM Date of : 1960 Age: 61 Procedure: Colonoscopy Indications: Screening for colorectal malignant neoplasm Providers: Julián Mccoy MD Medicines: See the Anesthesia note for documentation of the administered medications Patient Profile: Last Colonoscopy: 10 years ago. Complications: No immediate complications. Procedure: Pre-Anesthesia Assessment: - Prior to the procedure, a History and Physical was performed, and patient medications and allergies were reviewed. The patient's tolerance of previous anesthesia was also reviewed. The risks and benefits of the procedure and the sedation options and risks were discussed with the patient. All questions were answered, and informed consent was obtained. Prior Anticoagulants: The patient has taken no previous anticoagulant or antiplatelet agents. ASA Grade Assessment: II - A patient with mild systemic disease. After reviewing the risks and benefits, the patient was deemed in satisfactory condition to undergo the procedure. After I obtained informed consent, the scope was passed under direct vision. Throughout the procedure, the patient's blood pressure, pulse, and oxygen saturations were monitored continuously. The adult colonoscope was introduced through the anus and advanced to the cecum, identified by appendiceal orifice and ileocecal valve. The colonoscopy was performed without difficulty. The patient tolerated the procedure well. The quality of the bowel preparation was good. The ileocecal valve and the appendiceal orifice were photographed. Scope In: 11:19:07 AM Scope Withdrawal Time 0 hours 13 minutes 52 seconds Scope Out: 11:41:29 AM Total Procedure Duration Time 0 hours 22 minutes 22 seconds Findings: The digital rectal exam findings include non-thrombosed external hemorrhoids, non-thrombosed internal hemorrhoids, internal hemorrhoids that prolapse with straining, but spontaneously regress to the resting position (Grade II) and enlarged prostate. Two sessile polyps were found in the distal transverse colon. The polyps were 3 to 4 mm in size. These polyps were removed with a cold biopsy forceps. Resection and retrieval were complete. A few diverticula were found in the sigmoid colon. Impression: - Non-thrombosed external hemorrhoids, non-thrombosed internal hemorrhoids, internal hemorrhoids that prolapse with straining, but spontaneously regress to the resting position (Grade II) and enlarged prostate found on digital rectal exam. - Two 3 to 4 mm polyps in the distal transverse colon, removed with a cold biopsy forceps. Resected and retrieved. - Diverticulosis in the sigmoid colon. Recommendation: - Discharge patient to home. - Resume previous diet. - Continue present medications. - Repeat colonoscopy in 5 years for surveillance based on pathology results. - Telephone my office for pathology results in 1 week. Procedure Code(s): --- Professional --- 14113, Colonoscopy, flexible; with biopsy, single or multiple Diagnosis Code(s): --- Professional --- Z12.11, Encounter for screening for malignant neoplasm of colon D12.3, Benign neoplasm of transverse colon (hepatic flexure or splenic flexure) K64.1, Second degree hemorrhoids K64.4, Residual hemorrhoidal skin tags N40.0, Benign prostatic hyperplasia without lower urinary tract symptoms K57.30, Diverticulosis of large intestine without perforation or abscess without bleeding CPT copyright 2017 [employer]. All rights reserved. The codes documented in this report are preliminary and upon production control planner review may be revised to meet current compliance requirements. Julián Mccoy MD 11/11/2021 11:46:37 AM This report has been signed electronically. Number of Addenda: 0 Note Initiated On: 11/11/2021 11:11 AM
--- NOTE | 2021-11-11 11:47 | OP.CCLET_ITS ---
11/11/2021 Patricia Nguyen MD [address] [place] [address] Re : Colonoscopy procedure for Saqib Mcdaniel Dear Dr. Nguyen This procedure was performed on Thursday, November 11, 2021. My impressions and recommendations are as follows: Impressions : - Non-thrombosed external hemorrhoids, non-thrombosed internal hemorrhoids, internal hemorrhoids that prolapse with straining, but spontaneously regress to the resting position (Grade II) and enlarged prostate found on digital rectal exam. - Two 3 to 4 mm polyps in the distal transverse colon, removed with a cold biopsy forceps. Resected and retrieved. - Diverticulosis in the sigmoid colon. Recommendations : - Discharge patient to home. - Resume previous diet. - Continue present medications. - Repeat colonoscopy in 5 years for surveillance based on pathology results. - Telephone my office for pathology results in 1 week. My findings are described in the full procedure note, which is enclosed. If I can be of further assistance, please feel free to contact me at Doctor phone number(s): Work: . Sincerely, Julián Mccoy MD 11/11/2021 11:46:37 AM This report has been signed electronically.
== END 2021-11-11 12:31 | disposition home or self-care (01) ==
LOC: EN 09:25 → AC 09:29
PROVIDERS: PCP Internal Medicine; Referring Provider Internal Medicine; Visit Provider Surgery
PROC: 0DJD8ZZ Inspection of Lower Intestinal Tract, Via Natural or Artificial Opening Endoscopic (ICD-10-PCS; CPT 45378; principal; 2021-11-11 10:25)
DX: Z12.11 Encounter for screening for malignant neoplasm of colon (principal); I42.8 Other cardiomyopathies; K57.30 Diverticulosis of large intestine without perforation or abscess without bleeding; K64.1 Second degree hemorrhoids; K64.4 Residual hemorrhoidal skin tags; K63.5 Polyp of colon; I10 Essential (primary) hypertension; N40.0 Benign prostatic hyperplasia without lower urinary tract symptoms; E78.00 Pure hypercholesterolemia, unspecified; Z79.899 Other long term (current) drug therapy; Z95.0 Presence of cardiac pacemaker
CPT/HCPCS: 45380; 88305; J7120; J2405

== ENCOUNTER → 2021-12-07 | Outpatient (CLI) | payer OTHER, SELFPAY ==
[2021-12-07 12:12] LABS: Absolute Lymphocyte Count 1.55 X10^3/uL (0.83-4.51); Absolute Neutrophil Count 2.8 X10^3/uL (2.0-7.7); Basophil# 0.06 X10^3/uL; Basophil% 1.2 % (0-1); Eosinophil# 0.09 X10^3/uL; Eosinophils% 1.8 % (0-5); Hematocrit 42.9 % (40-54); Hemoglobin 14.4 g/dL (13.0-16.5); Lymphocyte # 1.55 X10^3/ul (0.83-4.51); Lymphocyte % 30.8 % (19-41); Mean Corp Hgb Conc 33.6 g/dL (32-36); Mean Corpuscular Hgb 31.1 pg (27.0-32.0); Mean Corpuscular Volume 92.7 fL (80-94); Mean Platelet Vol. 12.2 fl (6.2-12.0); Monocyte# 0.53 X10^3/uL; Monocyte% 10.5 % (0-10); NRBC Flagged by Analyzer 0 % (0-5); Neutrophil # 2.78 X10^3/uL (2.7-7.7); Neutrophil % 55.3 % (47-70); Platelet Count 140 K/mm3 (150-450); RBC Distribution Width CV 13.1 % (11.6-14.6); RBC Distribution Width SD 44.3 fl (35.1-43.9); Red Blood Count 4.63 M/mm3 (4.6-6.2)
[2021-12-07 12:46] LABS: ALB/GLOB Ratio 1.3 RATIO (0.9-2.4); AST(SGOT) 23 U/L (15-37); Alanine Aminotransfer ALT/SGPT 33 U/L (16-61); Albumin, Serum 3.9 g/dL (3.2-5.0); Alkaline Phosphatase 71 U/L (45-117); Anion Gap 4 (5-15); BUN 18 mg/dL (7-18); BUN/Creat Ratio 20.7 RATIO (10-20); Calcium,Total 9.4 mg/dL (8.5-10.1); Chloride 106 mmol/L (98-107); Cholesterol 128 mg/dL (200); Creatinine, Serum 0.87 mg/dL (0.70-1.30); EST Glomerular Filtration Rate 94 mL/min (>60); Est Glom Filt Rate - Afr Amer 114 mL/min (>60); Glucose 114 mg/dL (74-106); High Density Lipoprotein 48 mg/dL; Potassium 4.3 mmol/L (3.5-5.1); Protein, Total 6.9 g/dL (6.4-8.2); Sodium Level 139 mmol/L (136-145); Triglycerides 89 mg/dL; Uric Acid 5.9 mg/dL (3.5-7.2); Very Low Density Lipoprotein 18 mg/dL (5-40)
== END | disposition home or self-care (01) ==
LOC: BIMLAB 09:19
PROVIDERS: PCP Internal Medicine; Referring Provider Internal Medicine; Visit Provider Internal Medicine
DX: I10 Essential (primary) hypertension (principal); M10.9 Gout, unspecified
CPT/HCPCS: 36415; 80053; 80061; 84550; 85025

== ENCOUNTER → 2022-06-05 | Outpatient (CLI) | payer OTHER, SELFPAY ==
--- NOTE | 2022-06-05 08:48 | ECHOD_ITS ---
Reason For Study: HTN Procedure This was a 2D Doppler, Color Flow transthoracic echocardiogram. Exam performed in department. Left Ventricle Normal LV size. Left ventricular systolic function is normal. The estimated ejection fraction is 60 %. No regional wall motion abnormalities noted. Right Ventricle Normal RV size. ICD or pacer leads identified within the right ventricle. Normal systolic function. Atria Normal left atrium. Normal right atrium. Mitral Valve Normal mitral valve. Mild (1+) eccentric mitral valve insufficiency. Tricuspid Valve Normal tricuspid valve. Mild tricuspid valve insufficiency. Pulmonary artery systolic pressure is 24 mmHg. Aortic Valve Trisinus/trileaflet aortic valve. Mild (1+) aortic valve insufficiency. Pulmonic Valve Normal pulmonic valve. Great Vessels Mildly dilated aortic root. The pulmonary artery is normal size. Normal inferior vena cava. Pericardium/Pleural No pericardial effusion. MMode/2D Measurements & Calculations LVIDd: 5.9 cm IVSd: 0.95 cm Ao root diam: 4.1 cm LVIDs: 4.6 cm LVPWd: 0.83 cm RVDd: 3.7 cm FS: 22.6 % LAV(MOD-bp): 46.6 ml LVAd ap4: 32.1 cm2 SV(MOD-sp4): 57.5 ml LAV(MOD-bp) Indexed: 22.2 ml/m2 LVLd ap4: 8.2 cm LAV(MOD-sp2): 38.8 ml EDV(MOD-sp4): 107.4 ml LAV(MOD-sp4): 56.1 ml EDV(sp4-el): 106.9 ml LVAs ap4: 20.8 cm2 LVLs ap4: 7.2 cm ESV(MOD-sp4): 49.9 ml ESV(sp4-el): 51.1 ml EF(MOD-sp4): 53.5 % EF(sp4-el): 52.2 % SV(sp4-el): 55.7 ml LA A4 area: 19.7 cm2 LA dimension(2D): 4.6 cm RA A4 area: 19.5 cm2 Time Measurements MV dec time: 0.42 sec Doppler Measurements & Calculations MV E max robbi: 45.4 cm/sec Lat Peak E' Robbi: 8.2 cm/sec Med Peak E' Robbi: 5.6 cm/sec MV A max robbi: 48.1 cm/sec E/E' lat: 5.5 E/E' med: 8.0 MV E/A: 0.94 MV V2 max: 55.2 cm/sec Ao V2 max: 97.3 cm/sec MV max P.2 mmHg MV dec slope: 109.2 cm/sec2 Ao max P.8 mmHg MV V2 mean: 41.1 cm/sec Ao V2 mean: 62.1 cm/sec MV mean P.71 mmHg Ao mean P.8 mmHg MV V2 VTI: 19.3 cm Ao V2 VTI: 23.2 cm AV (velocity ratio): 0.81 LV V1 max: 82.9 cm/sec PA V2 max: 91.5 cm/sec TR max robbi: 230.6 cm/sec LV V1 max P.8 mmHg PA V2 mean: 63.3 cm/sec TR max P.3 mmHg LV V1 mean P.3 mmHg LV V1 mean: 52.9 cm/sec LV V1 VTI: 18.8 cm ECHO/Echo Complete Interpretation Summary Normal LV size. Left ventricular systolic function is normal. The estimated ejection fraction is 60 %. Mild (1+) eccentric mitral valve insufficiency. Mild (1+) aortic valve insufficiency. Ordering Physician: Paddy Adhikari Referring Physician: Patricia Nguyen Performed By: Makayla Retana RCS
== END | disposition home or self-care (01) ==
LOC: CVS 08:47
PROVIDERS: PCP Internal Medicine; Visit Provider Internal Medicine Cardiovascular Disease
DX: I42.8 Other cardiomyopathies (principal); I10 Essential (primary) hypertension
CPT/HCPCS: 93306

== ENCOUNTER → 2022-06-09 | Outpatient (CLI) | payer OTHER, SELFPAY ==
[2022-06-09 12:47] LABS: Anion Gap 5 (5-15); BUN 20 mg/dL (7-18); BUN/Creat Ratio 20.8 RATIO (10-20); Calcium,Total 9.3 mg/dL (8.5-10.1); Chloride 107 mmol/L (98-107); Creatinine, Serum 0.96 mg/dL (0.70-1.30); EST Glomerular Filtration Rate 84 mL/min (>60); Est Glom Filt Rate - Afr Amer 102 mL/min (>60); Glucose 126 mg/dL (74-106); Potassium 4.5 mmol/L (3.5-5.1); Sodium Level 141 mmol/L (136-145)
[2022-06-12 09:48] LABS: Hemoglobin A1c 5.4 % (3.8-5.6)
== END | disposition home or self-care (01) ==
LOC: BIMLAB 08:30
PROVIDERS: PCP Internal Medicine; Referring Provider Internal Medicine; Visit Provider Internal Medicine
DX: I10 Essential (primary) hypertension (principal); R73.9 Hyperglycemia, unspecified
CPT/HCPCS: 36415; 80048; 83036

== ENCOUNTER → 2022-12-08 | Outpatient (CLI) | payer OTHER, SELFPAY ==
[2022-12-08 12:29] LABS: Absolute Lymphocyte Count 1.88 X10^3/uL (0.83-4.51); Absolute Neutrophil Count 3.4 X10^3/uL (2.0-7.7); Basophil# 0.06 X10^3/uL; Eosinophil# 0.12 X10^3/uL; Hematocrit 46.2 % (40-54); Hemoglobin 15.4 g/dL (13.0-16.5); Lymphocyte # 1.88 X10^3/ul (0.83-4.51); Lymphocyte % 31.3 % (19-41); Mean Corp Hgb Conc 33.3 g/dL (32-36); Mean Corpuscular Hgb 31.4 pg (27.0-32.0); Mean Corpuscular Volume 94.3 fL (80-94); Mean Platelet Vol. 12.5 fl (6.2-12.0); Monocyte# 0.51 X10^3/uL; Monocyte% 8.5 % (0-10); NRBC Flagged by Analyzer 0 % (0-5); Neutrophil # 3.43 X10^3/uL (2.7-7.7); Platelet Count 155 K/mm3 (150-450); RBC Distribution Width SD 44.3 fl (35.1-43.9)
[2022-12-08 14:54] LABS: ALB/GLOB Ratio 1.2 RATIO (0.9-2.4); AST(SGOT) 31 U/L (15-37); Alanine Aminotransfer ALT/SGPT 42 U/L (16-61); Albumin, Serum 3.9 g/dL (3.2-5.0); Alkaline Phosphatase 69 U/L (45-117); Anion Gap 7 (5-15); BUN 20 mg/dL (7-18); BUN/Creat Ratio 20.9 RATIO (10-20); Chloride 105 mmol/L (98-107); Cholesterol 141 mg/dL (200); Creatinine, Serum 0.96 mg/dL (0.70-1.30); EST Glomerular Filtration Rate 84 mL/min (>60); Est Glom Filt Rate - Afr Amer 102 mL/min (>60); Globulin 3.2 g/dL (2.2-4.2); Glucose 114 mg/dL (74-106); High Density Lipoprotein 55 mg/dL; PSA,Total - Annual Screen 5.67 ng/mL (0.00-4.00); Potassium 4.5 mmol/L (3.5-5.1); Protein, Total 7.1 g/dL (6.4-8.2); Sodium Level 137 mmol/L (136-145); Triglycerides 103 mg/dL; Uric Acid 5.2 mg/dL (3.5-7.2); Very Low Density Lipoprotein 21 mg/dL (5-40)
== END | disposition home or self-care (01) ==
LOC: BIMLAB 08:20
PROVIDERS: PCP Internal Medicine; Referring Provider Internal Medicine; Visit Provider Internal Medicine
DX: Z00.00 Encounter for general adult medical examination without abnormal findings (principal); M10.9 Gout, unspecified
CPT/HCPCS: 36415; 80053; 80061; 84153; 84550; 85025; G0103

== ENCOUNTER → 2023-05-02 | Outpatient (CLI) | payer OTHER, SELFPAY ==
[2023-05-02 13:11] LABS: PSA,Total- Diagnostic 4.65 ng/mL (0.0-4.0)
== END | disposition home or self-care (01) ==
LOC: BIMLAB 09:37
PROVIDERS: PCP Internal Medicine; Referring Provider Internal Medicine; Visit Provider Internal Medicine
DX: R97.20 Elevated prostate specific antigen [PSA] (principal)
CPT/HCPCS: 36415; 84153

== ENCOUNTER → 2023-12-17 | Outpatient (CLI) | payer MEDICARE, OTHER, SELFPAY ==
[2023-12-17 12:16] LABS: Absolute Lymphocyte Count 1.68 X10^3/uL (0.83-4.51); Absolute Neutrophil Count 2.7 X10^3/uL (2.0-7.7); Basophil# 0.07 X10^3/uL; Basophil% 1.4 % (0-1); Eosinophil# 0.08 X10^3/uL; Eosinophils% 1.6 % (0-5); Hematocrit 46.1 % (40-54); Hemoglobin 15.3 g/dL (13.0-16.5); Lymphocyte # 1.68 X10^3/ul (0.83-4.51); Lymphocyte % 33.4 % (19-41); Mean Corp Hgb Conc 33.2 g/dL (32-36); Mean Corpuscular Hgb 30.7 pg (27.0-32.0); Mean Corpuscular Volume 92.6 fL (80-94); Mean Platelet Vol. 12.3 fl (6.2-12.0); Monocyte# 0.45 X10^3/uL; Monocyte% 8.9 % (0-10); NRBC Flagged by Analyzer 0 % (0-5); Neutrophil # 2.73 X10^3/uL (2.7-7.7); Neutrophil % 54.3 % (47-70); Platelet Count 154 K/mm3 (150-450); RBC Distribution Width SD 43.7 fl (35.1-43.9); Red Blood Count 4.98 M/mm3 (4.6-6.2)
[2023-12-17 12:39] LABS: ALB/GLOB Ratio 1.3 RATIO (0.9-2.4); AST(SGOT) 36 U/L (15-37); Alanine Aminotransfer ALT/SGPT 44 U/L (16-61); Albumin, Serum 4.1 g/dL (3.2-5.0); Alkaline Phosphatase 67 U/L (45-117); Anion Gap 5 (5-15); BUN 16 mg/dL (7-18); BUN/Creat Ratio 16.5 RATIO (10-20); Calcium,Total 9.4 mg/dL (8.5-10.1); Chloride 106 mmol/L (98-107); Cholesterol 134 mg/dL (200); Creatinine, Serum 0.97 mg/dL (0.70-1.30); EST Glomerular Filtration Rate 82 mL/min (>60); Est Glom Filt Rate - Afr Amer 100 mL/min (>60); Globulin 3.1 g/dL (2.2-4.2); Glucose 121 mg/dL (74-106); High Density Lipoprotein 58 mg/dL; PSA,Total - Annual Screen 5.74 ng/mL (0.00-4.00); Potassium 4.3 mmol/L (3.5-5.1); Protein, Total 7.2 g/dL (6.4-8.2); Sodium Level 136 mmol/L (136-145); Triglycerides 87 mg/dL; Very Low Density Lipoprotein 17 mg/dL (5-40)
[2023-12-18 14:14] LABS: Hemoglobin A1c 5.6 % (3.8-5.6)
[2023-12-20 13:08] LABS: Testosterone, % Free 2.11 % (1.50-4.20); Testosterone, Free 9.07 ng/dL (5.00-21.00); Testosterone, Total 430 ng/dL (264-916)
== END | disposition home or self-care (01) ==
LOC: BIMLAB 08:32
PROVIDERS: PCP Internal Medicine; Referring Provider Internal Medicine; Visit Provider Internal Medicine
DX: N52.9 Male erectile dysfunction, unspecified (principal); E78.2 Mixed hyperlipidemia; I10 Essential (primary) hypertension; R97.20 Elevated prostate specific antigen [PSA]; R73.9 Hyperglycemia, unspecified
CPT/HCPCS: 36415; 80053; 80061; 83036; 84153; 84402; 84403; 85025; G0103

== ENCOUNTER → 2024-03-05 | Outpatient (CLI) | payer MEDICARE, OTHER, SELFPAY ==
[2024-03-12 22:03] LABS: PSA, Free 1.24 ng/mL; PSA, Free % 18.3 % (.)
== END | disposition home or self-care (01) ==
LOC: BIMLAB 09:41
PROVIDERS: PCP Internal Medicine; Referring Provider Urology; Visit Provider Urology
DX: R97.20 Elevated prostate specific antigen [PSA] (principal)
CPT/HCPCS: 36415; 84153; 84154

== ENCOUNTER → 2024-03-14 | Outpatient (CLI) | payer MEDICARE, OTHER, SELFPAY ==
--- OUTSIDE RECORDS SUMMARY | 2024-03-14 08:23 | XMS RPT_ITS | CCD ---
Author Organization [facility] SALES OUTFITTER [facility] Results Test Name Value Interpretation Reference Range Facil ity [facility] AMPARO LAYTON ([id number]) 1960 Date Time Provider Department 08/03/20 MARIAN STYLES During your visit today, we recorded the following information about you: Marian Styles MD 08/03/2020 8:40 AM Signed Needs Pt Outreach to schedule appt to follow up HTN MD Maxim Garcia Ma 08/03/2020 8:54 AM Signed Outreach encounter done. Maxim Kemp Ma Allergies As of Date: 08/03/2020 (No Known Allergies) Date Reviewed: 12/30/2018 Reviewed by: Segundo ([facility]) Donovan - Fully Assessed Reason for Visit: PHMA/Care Gap Outreach [[id number]] Cmt: HTN Prescriptions as of 08/03/2020 Sig: HYDROCHLOROTHIAZIDE 12.5 MG C* Take 1 capsule by mouth once * COLCHICINE 0.6 MG TABLET TAKE ONE(1) TABLET TWICE GENNA* LISINOPRIL 40 MG TABLET Take 1 tablet by mouth once d* COLCHICINE 0.6 MG TABLET TAKE ONE(1) TABLET TWICE GENNA* ATORVASTATIN 40 MG TABLET Take 40 mg by mouth once genna* XARELTO 20 MG TABLET Take 20 mg by mouth once genna* CARVEDILOL 12.5 MG TABLET Take 1 tablet by mouth twice * MELATONIN 3 MG TABLET Take 1 tablet by mouth once d* ASPIRIN 81 MG TABLET,DELAYED * Take 1 tablet by mouth once d* Patient not taking: Reported on 12/30/2018 GLUCOSAMINE-CHONDROI T-VIT C-M* Take by mouth. Take one(1) t* MULTIVITAMIN TABLET Take one(1) tablet daily. Problem List As Of Date 08/03/2020 Noted Resolved SEBACEOUS CYST [L72.3] 01/15/2002 Hyperlipidemia [E78.5] 01/15/2002 Other left bundle branch block [I44.7] 01/15/2002 12/13/2017 Essential Hypertension, Benign [I10] 05/26/2004 Gout, Unspecified [M10.9] 10/17/2006 Other specified abnormal findings of blood chem*05/10/2007 05/10/2015 Family History of Diabetes Mellitus [Z83.3] 05/10/2007 Prediabetes [R73.03] 05/10/2015 Cardiomyopathy, nonischemic (HCC) [I42.8] 10/06/2016 PAF (paroxysmal atrial fibrillation) (HCC) [I48*12/13/2017 History of placement of internal cardiac defibr*04/19/2018 Encounter Status:Closed by MAXIM KEMP MA on 08/03/20 [facility] Clinical Note 08-03-2020 Note Date & Type Note Facility 08-03-2020 Note Patient Outreach (FA MPWS) AMPARO LAYTON ([id number]) 1960 M Date Time Provider Department 08/03/20 MAXIM KEMP) ABDIFATAHWS During your visit today, we recorded the following information about you: Maxim Kemp Ma 08/03/2020 9:49 AM Signed POPULATION HEALTH NAVIGATION OUTREACH Action/FYI Hypertension. Message left for pt to call back on 08/03/20. Letter mailed 08/03/20 to call office. Needs appointment made if still following with Dr. Styles as primary care physician. If no longer following with Dr. Styles, please update PCP. Contact made with patient or family member? YES Pt identified by name and : YES Outreach Outcome/Action Unable to reach patient: Left message Reason for Outreach Care Gap or Scheduling/Wellness visits Payer: Payor: CLAIRE / Plan: BLUE CARD PPO / Product Type: PPO / Care Gap Reviewed:: Hypertension Reminder: Reminder note to check Health Maintenance for items below Health Maintenance items due: HIV SCREENING Completed SHINGRIX VACCINE(1 of 2) Completed ANNUAL PCP TEAM CHRONIC DISEASE VISIT due on 12/31/2019 BP CONTROLLED (<130/80) due on 12/31/2019 DEPRESSION SCREENING due on 12/31/2019 INFLUENZA(1) due on 01/20/2020 Message Sent to Practice: NO Navigation Signature: Maxim Kemp Ma August 03, 2020 9:40 AM Allergies As of Date: 08/03/2020 (No Known Allergies) Date Reviewed: 12/30/2018 Reviewed by: Segundo ([facility]) Donovan - Fully Assessed Reason for Visit: Hypertension [168] Cmt: care gap Prescriptions as of 08/03/2020 Sig: HYDROCHLOROTHIAZIDE 12.5 MG C* Take 1 capsule by mouth once * COLCHICINE 0.6 MG TABLET TAKE ONE(1) TABLET TWICE GENNA* LISINOPRIL 40 MG TABLET Take 1 tablet by mouth once d* COLCHICINE 0.6 MG TABLET TAKE ONE(1) TABLET TWICE GENNA* ATORVASTATIN 40 MG TABLET Take 40 mg by mouth once genna* XARELTO 20 MG TABLET Take 20 mg by mouth once genna* CARVEDILOL 12.5 MG TABLET Take 1 tablet by mouth twice * MELATONIN 3 MG TABLET Take 1 tablet by mouth once d* ASPIRIN 81 MG TABLET,DELAYED * Take 1 tablet by mouth once d* Patient not taking: Reported on 12/30/2018 DOYDLWGUYOM-ZAKDFBVKC-[id number] C-M* Take by mouth. Take one(1) t* MULTIVITAMIN TABLET Take one(1) tablet daily. Problem List As Of Date 08/03/2020 Noted Resolved SEBACEOUS CYST [L72.3] 01/15/2002 Hyperlipidemia [E78.5] 01/15/2002 Other left bundle branch block [I44.7] 01/15/2002 12/13/2017 Essential Hypertension, Benign [I10] 05/26/2004 Gout, Unspecified [M10.9] 10/17/2006 Other specified abnormal findings of blood chem*05/10/2007 05/10/2015 Family History of Diabetes Mellitus [Z83.3] 05/10/2007 Prediabetes [R73.03] 05/10/2015 Cardiomyopathy, nonischemic (HCC) [I42.8] 10/06/2016 PAF (paroxysmal atrial fibrillation) (HCC) [I48*12/13/2017 History of placement of internal cardiac defibr*04/19/2018 Letter Text Encounter Status:Closed by MAXIM KEMP MA on 08/03/20 [facility] Progress note 08-03-2020 Note Date & Type Note Facility 08-03-2020 Note HNO ID: [id number] Author: Maxim Kemp Ma Service: ? Author Type: ? Type: Progress Notes Filed: 08/03/2020 9:49 AM Note Text: POPULATION HEALTH NAVIGATION OUTREACH Action/I Hypertension. Message left for pt to call back on 08/03/20. Letter mailed 08/03/20 to call office. Needs appointment made if still following with Dr. Styles as primary care physician. If no longer following with Dr. Styles, please update PCP. Contact made with patient or family member? YES Pt identified by name and : YES Outreach Outcome/Action Unable to reach patient: Left message Reason for Outreach Care Gap or Scheduling/Wellness visits Payer: Payor: CLAIRE / Plan: BLUE CARD PPO / Product Type: PPO / Care Gap Reviewed:: Hypertension Reminder: Reminder note to check Health Maintenance for items below Health Maintenance items due: HIV SCREENING Completed SHINGRIX VACCINE(1 of 2) Completed ANNUAL PCP TEAM CHRONIC DISEASE VISIT due on 12/31/2019 BP CONTROLLED (<130/80) due on 12/31/2019 DEPRESSION SCREENING due on 12/31/2019 INFLUENZA(1) due on 01/20/2020 Message Sent to Practice: NO Navigation Signature: Maxim Kemp Ma August 03, 2020 9:[address] [facility] Summary Purpose Family History No Family History Records Found Advance Directives No Advanced Directives Records Found Additional Source Comments (unrecognized sect ion and content) No Status Records Found INFORMATION SOURCE (unrecogn ized section and content) DATE CREATED AUTHOR 06/12/2021 [facility] FOR RECORDS PERTAINING TO PATIENTS WHO ARE OR HAVE BEEN ENROLLED IN A CHEMICAL DEPENDENCY/SUBSTANCEABUSE PROGRAM, SOME INFORMATION MAY BE OMITTED. This clinical summary was aggregated from multiple sources. Caution should be exercised in using it in the provision of clinical care. This summary normalizes information from multiple sources, and as a consequence, information in this document may materially change the coding, format and clinical context of patient data. In addition, data may be omitted in some cases. CLINICAL DECISIONS SHOULD BE BASED ON THE PRIMARY CLINICAL RECORDS. [facility] [employer] provides no warranty or guarantee of the accuracy or completeness of information in this document.
--- NOTE | 2024-03-14 08:29 | MRI_ITS ---
STUDY: MR PROSTATE GLAND/ PELVIS WITH T WITHOUT CONTRAST REASON FOR EXAM: Male, 63 years old. ELEVATED PSA TECHNIQUE: Standardized fat and water weighted pulse sequences were obtained in all 3 orthogonal planes, pre-and post contrast administration. IV 17 cc clariscan was administered for the contrast portion of the examination. COMPARISON: None. FINDINGS: Prostate gland volume/size: 5.53 x 4.63 x 5.49 cm, which is mildly enlarged. Anterior fibromuscular stroma: Normal Peripheral zone: Small 1.22 cm ovoid intermediate signal nodule at the anterior superior aspect of the right peripheral zone (see image 13/30 series 8) that demonstrates enhancement on the postcontrast study and is bright on the diffusion-weighted sequence image 22/152 and dark on ADC map image 17/30 series 701 which is usually indicative of malignant neoplasm. Additional mottled areas of linear and irregular intermediate to low signal is scattered throughout the bilateral peripheral zones but without focal nodularity or mass. Central zone: Diffusely intermediate to low signal, nodular, and microcystic and hyperplastic with diffuse enhancement. Transitional zone: Diffusely intermediate to low signal, nodular, and microcystic and hyperplastic with diffuse enhancement. Prostate capsule: Intact Seminal vesicles: Normal bilaterally Pelvic sidewall lymphadenopathy: Bony structures: No marrow edema or lytic or blastic lesions or abnormally enhancing lesions. Normal urinary bladder. Normal visualized small intestine. Normal visualized colon. There is no pelvic fluid. There is no pelvic mass lesion or lymphadenopathy. Normal abdominal wall. MRI/Pelvis W/WO Contrast IMPRESSION: 1. Peripheral zone: Small 1.22 cm ovoid intermediate signal nodule at the anterior superior aspect of the right peripheral zone (see image 13/30 series 8) that demonstrates enhancement on the postcontrast study and is bright on the diffusion-weighted sequence image 22/152 and dark on ADC map image 17/30 series 701 which is usually indicative of malignant neoplasm. Additional mottled areas of linear and irregular intermediate to low signal is scattered throughout the bilateral peripheral zones but without focal nodularity or mass. 2. PI-RADS 5: very high (clinically significant cancer is highly likely to be present) Reference information: Normal prostate tissue Benign prostatic hypertrophy cancer/tumor - low signal peripheral , transitional, and central zones malignancy appears as bright on DWI and low signal on ADC map Prostate imaging-reporting and data system (PI-RADS) PI-RADS 1: very low (clinically significant cancer is highly unlikely to be present) PI-RADS 2: low (clinically significant cancer is unlikely to be present) PI-RADS 3: intermediate (the presence of clinically significant cancer is equivocal) PI-RADS 4: high (clinically significant cancer is likely to be present) PI-RADS 5: very high (clinically significant cancer is highly likely to be present) PI-RADS X: component of exam technically inadequate or not performed Prostate malignancy distribution: Peripheral zone: 70-80% Transitional zone: 10-20% Central zone: 5% or less Electronically Signed: Janusz Wisdom MD at 15:58 EDT ,
[2024-03-14 08:45] VITALS: BP 118/78; PULSE 80; RESP 16; O2SAT 97
[2024-03-14 09:07] VITALS: PULSE 80; O2SAT 97
[2024-03-14 09:18] VITALS: BP 112/72; PULSE 80; RESP 16; O2SAT 93
[2024-03-14 09:30] VITALS: BP 114/70; PULSE 80; RESP 18; O2SAT 95
[2024-03-14 09:45] VITALS: BP 120/72; PULSE 65; RESP 18; O2SAT 97
== END | disposition home or self-care (01) ==
LOC: MRI 08:06
PROVIDERS: PCP Internal Medicine; Referring Provider Urology; Visit Provider Urology
DX: R97.20 Elevated prostate specific antigen [PSA] (principal)
CPT/HCPCS: 72197; A9575

== ENCOUNTER → 2024-04-29 | Outpatient (CLI) | payer MEDICARE, OTHER, SELFPAY ==
--- NOTE | 2024-04-29 08:00 | PROSB_PTH ---
PATIENT: AMPARO LAYTON [facility] U#:[id number] AGE/SX: 63/M ROOM: RE04/29/[address]: Dr. James Saldaña MD : 1960 BED: DIS: 04/29/2024 SPEC #: [id number] RECD: 04/30/24 07:17 STATUS: RACHELE RETierra #: [id number] DALE: 04/29/24 08:[address]: James Saldaña DEPT: SURGICAL PATHOLOGY RECD BY: Uzair Toney ENTERED: 04/30/24 07:18 SP TYPE: PROST BX OTHR DR: Dr. Patricia Nguyen MD Tissues: Prostate, NOS Procedures: Surgery Specimen Level IV HEADER OPERATION: Prostate biopsy PRE-OP DIAGNOSIS: Elevated PSA TISSUE SUBMITTED: Right mid prostate biopsy MICROSCOPIC DIAGNOSIS Right mid prostate, needle core biopsy: Adenocarcinoma. Jeremias grade: 3+4 (7) Cores involved: 4/4 Tissue involved: 80 % Greatest tumor length: 10 millimeters Perineural invasion present. AM 05/01/2024 COMMENT Case has been reviewed in consultation with Dr. Bellamy who concurs with the above diagnosis. IDC:[id number] MICROSCOPIC DESCRIPTION Slides are reviewed. GROSS DESCRIPTION Received is one container designated prostate, right mid - peripheral zone. The specimen consists of four elongated fragments of light camp-white soft tissue each measuring 1.0 to 1.5 cm in length and 0.1 cm in diameter. The specimen is totally submitted in two cassettes. 04/30/2024 TC:0 CPT: G0146
== END | disposition home or self-care (01) ==
LOC: LABSPEC 16:25
PROVIDERS: PCP Internal Medicine; Referring Provider Urology; Visit Provider Urology
DX: R97.20 Elevated prostate specific antigen [PSA] (principal)
CPT/HCPCS: 88305

== ENCOUNTER 2024-07-23 05:54 | Day surgery (SDC) | payer MEDICARE, OTHER, SELFPAY ==
--- NOTE | 2024-07-09 20:44 | PAT.ANESEVAL ---
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 When Was Last Pacemaker Check QUESTION #4 FULL TEXT: You/Your Family Experience fever (hyperthermia) with Anesthesia Last Oral Intake Last Oral intake: Last Oral Intake NPO since Meds taken in AM with sips of water? Meds patient instructed to take am of surgery PONV PONV - mineral engineer: PONV - mineral engineer Female No 07/09/24 13:08 HX of Motion Sickness No 07/09/24 13:08 HX of N/V After Surgery No 07/09/24 13:08 Non-Smoker Yes 07/09/24 13:08 Duration of Surgery greater No 07/09/24 13:08 than 60 minutes Number of Risk Factors 1 07/09/24 13:08 PONV Score Low Risk 07/09/24 13:08 Height & Weight Height & Weight: Anesthesia: Height & Weight Height 6 ft 3 in 05/20/24 10:01 Respiratory Assessment Respiratory Assessment - mineral engineer: Respiratory Tract Infection Hx - mineral engineer Hx Respiratory Tract Infection No 07/09/24 13:08 STOP Sleep Apnea STOP Sleep Apnea - mineral engineer: STOP Sleep Apnea - mineral engineer Hx Hypertension Yes: CONTROLLED WITH MED 07/09/24 13:08 Hx Sleep Apnea No 07/09/24 13:08 CPAP BIPAP Do you snore loudly (louder No 07/09/24 13:08 than talking or can be heard Do you often feel tired/ No 07/09/24 13:08 fatigued/ sleepy during daytime? Has anyone observed you stop No 07/09/24 13:08 breathing during sleep? STOP Results Negative 07/09/24 13:08 QUESTION #5 FULL TEXT : Do you snore loudly (louder than talking or can be heard through closed doors)? 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 Specify any problems Hx of Preganancy in last 3 N/A 07/09/24 13:08 Months Nurse Filling Out Transfusion NBUCHER 07/09/24 13:08 & Questions: Date: 07/09/24 07/09/24 13:08 Time: 13:09 07/09/24 13:08 Patient unable to answer at this time (ie. confused, unrespo /Reproduction History /Reproductive History - mineral engineer: /Reproductive Hx- mineral engineer Hx Now No 07/09/24 13:08 Gestational Age (in weeks): EDC: Hx Hx Para Hx Section SAB No 07/09/24 13:08 [facility] (Updated 07/09/24 @ 13:14 by Leela Romo) Arthritis Cancer Prostate disease Heartburn Gastric reflux Former smoker Hypertension History of pacemaker Cardiology follow-up encounter Abnormal prostate biopsy Prostate cancer Localized skin mass, lump, or swelling Erectile dysfunction Flu vaccine need Elevated PSA Preventative health care Blood glucose elevated Normal colonoscopy Wears glasses Gout High cholesterol Health care maintenance Colon cancer screening Right knee pain Paroxysmal atrial fibrillation Non-ischemic cardiomyopathy Essential (primary) hypertension Left bundle branch block (LBBB) Home Medications ?Medication ?Instructions ?Recorded ?Last Taken ?Type dqztrofgfpov-Zm-xbhs-minerals 18 1 tab PO DAILY 12/02/19 Unknown History mg-0.4 mg tablet (Maximum Daily Multivitamin) cetirizine 10 mg capsule (Zyrtec) 10 mg PO DAILY PRN allergy symptoms 12/07/21 Unknown History carvedilol 6.25 mg tablet (Coreg) 6.25 mg PO BID #180 tabs 11/23/23 Unknown Rx aspirin 81 mg tablet,delayed 81 mg PO DAILY 12/17/23 Unknown History release (Adult Low Dose Aspirin) atorvastatin 40 mg tablet 40 mg PO DAILY #90 tabs 02/11/24 Unknown Rx allopurinol 100 mg tablet 100 mg PO BID #180 tabs 05/20/24 Unknown Rx amlodipine 5 mg tablet 5 mg PO DAILY #90 tabs 05/20/24 Unknown Rx lisinopril 40 mg tablet 40 mg PO DAILY blood pressure #90 05/20/24 Unknown Rx tabs tadalafil 5 mg tablet 5 mg PO DAILY PRN sexual activity 07/09/24 Unknown History Allergy/AdvReac Type Severity Reaction Status Date / Time No Known Allergies Allergy Verified 07/09/24 13:05 Family History (Reviewed 06/18/24 @ 10:03 by Saqib Etienne ELECTRIC VEHICLE ELECTRICIAN, ELECTRIC VEHICLE ELECTRICIAN-C) Unknown No problems noted. Mother Alzheimer's dementia Mother Hypertension Father CVA (cerebral vascular accident) Hypertension Surgical History (Updated 07/09/24 @ 13:14 by Leela Romo) History of colonoscopy History of ear surgery History of tonsillectomy History of radiofrequency ablation procedure for cardiac arrhythmia (03/07/18) Biventricular implantable cardioverter-defibrillator (ICD) in situ (03/07/18) History of left heart catheterization (06/13/17) Social History (Reviewed 06/18/24 @ 10:03 by Saqib Etienne ELECTRIC VEHICLE ELECTRICIAN, ELECTRIC VEHICLE ELECTRICIAN-C) adopted: No household members: none number of children: 1 current occupational status: retired pets and animals: No Smoking Status: Former smoker quit date: 05/21/09 pack-years: 15 alcohol intake: current alcohol intake frequency: a few times a month substance use type: does not use caffeine: Yes (2-3) Type: coffee frequency: 3-4 times per week seatbelt use: always do you feel safe at home: Yes Audit: Pertinent Findings Pertinent Findings Echo (EF%) pertinent findings: June 05, 2022. Ejection fraction 60%. PA systolic pressure is 24 mmHg. No aortic stenosis noted. Consult pertinent findings: June 18, 2024. [place] ELECTRIC VEHICLE ELECTRICIAN-C. 1. Biventricular implantable cardioverter and defibrillator in situ-last evaluation from June 18, 2024 shows device is functioning appropriately. 2. Paroxysmal [id number]-ybpgikg is status post ablation on 03/09/2018. Currently has an ICD. Continue to monitor. Continue carvedilol. 3. Nonischemic cardiomyopathy-most recent echo from June 05, 2022 shows ejection fraction of 60% which is stable. Recommendation Anesthesia Recommendation Anesthesia recommendation: OPTIMIZED for anesthesia
[2024-07-23] VITALS (7 sets, daily range): BP systolic 115–170; BP diastolic 65–77; PULSE 59–60; RESP 10–16; TEMP 36.4–36.6; O2SAT 84–99; BMI 23.9
--- NOTE | 2024-07-23 06:43 | PRE.ANES_ITS ---
ASA Classification* ASA Classification ASA Classification: 3 Assessment & Plan Anesthesia* Anesthesia Assessment Anesthesia Assessment: Discussed sedation and/or anesthesia options, risks, benefits, and alternatives with patient/parents/legal guardian/POA. Questions invited. The patient/parents/legal guardian/POA seems to understand and agrees to proceed with anesthesia plan. Reviewed the physical assessment, medical history, allergy history and patient home medications list prior to surgery/procedure/anesthetic and documented any changes. Performed airway and anesthesia risk assessments. Anesthesia Type Anesthesia Type: General Anesthesia Focused Assessment* Airway Assessment Mouth opens: >3 cm Mallampati Score: II Focused Labs Anesthesia Preop lab: CBC WBC 5.0 K/mm3 (4.4-11.0) 12/17/23 08:12/17/23 RBC 4.98 M/mm3 (4.6-6.2) 12/17/23 08:12/17/23 Hgb 15.3 g/dL (13.0-16.5) 12/17/23 08:12/17/23 Hct 46.1 % (40-54) 12/17/23 08:12/17/23 Plt Count 154 K/mm3 (150-450) 12/17/23 08:12/17/23 CHEMISTRY Potassium 4.3 mmol/L (3.5-5.1) 12/17/23 08:12/17/23 Sodium 136 mmol/L (136-145) 12/17/23 08:12/17/23 Magnesium 2.1 mg/dL (1.6-2.6) 03/15/20 08:40 03/15/20 BUN 16 mg/dL (7-18) 12/17/23 08:12/17/23 Creatinine 0.97 mg/dL (0.70-1.30) 12/17/23 08:12/17/23 Glucose 121 mg/dL (74-106) H 12/17/23 08:12/17/23 TSH 2.50 uIU/mL (0.358-3.74) 12/28/20 08:33 COAG PT 14.2 SECONDS (11.7-14.9) 06/13/17 05:00 Pre-Assessment Diagnosis/Proposed Procedure Planned Operative Procedure(s): SPACE OAR Anesthesia History Anesthesia History - corporate receptionist: Anesthesia History - corporate receptionist Hx Hospitalization No 07/09/24 13:08 Any Problems With Anesthesia No 07/09/24 13:08 Cholinesterase deficiency No 07/09/24 13:08 You/Your Family Experience No 07/09/24 13:08 fever (hyperthermia) with Relationship Recent Exposure to Contagious No 03/06/23 11:02 Disease Does patient have nerve No 07/09/24 13:08 stimulator Patient instructed to have device shut off --Does patient have Pacemaker or ICD? When Was Last Pacemaker Check QUESTION #4 FULL TEXT: You/Your Family Experience fever (hyperthermia) with Anesthesia Last Oral Intake Last Oral intake: Last Oral Intake NPO since Meds taken in AM with sips of water? Meds patient instructed to take am of surgery PONV PONV - corporate receptionist: PONV - corporate receptionist Female No 07/09/24 13:08 HX of Motion Sickness No 07/09/24 13:08 HX of N/V After Surgery No 07/09/24 13:08 Non-Smoker Yes 07/09/24 13:08 Duration of Surgery greater No 07/09/24 13:08 than 60 minutes Number of Risk Factors 1 07/09/24 13:08 PONV Score Low Risk 07/09/24 13:08 Height & Weight Height & Weight: Anesthesia: Height & Weight Height 6 ft 3 in 06/18/24 09:50 Respiratory Assessment Respiratory Assessment - corporate receptionist: Respiratory Tract Infection Hx - corporate receptionist Hx Respiratory Tract Infection No 07/09/24 13:08 STOP Sleep Apnea STOP Sleep Apnea - corporate receptionist: STOP Sleep Apnea - corporate receptionist Hx Hypertension Yes: CONTROLLED WITH MED 07/09/24 13:08 Hx Sleep Apnea No 07/09/24 13:08 CPAP BIPAP Do you snore loudly (louder No 07/09/24 13:08 than talking or can be heard Do you often feel tired/ No 07/09/24 13:08 fatigued/ sleepy during daytime? Has anyone observed you stop No 07/09/24 13:08 breathing during sleep? STOP Results Negative 07/09/24 13:08 QUESTION #5 FULL TEXT : Do you snore loudly (louder than talking or can be heard through closed doors)? Tobacco Use History Tobacco Use History - corporate receptionist: Tobacco Use History - corporate receptionist Tobacco Use Smoking Status Former smoker 07/09/24 13:08 Hx Tobacco Use Yes 07/09/24 13:08 Years Smoking Packs Smoked per Day Smoking Cessation Date was No - quit smoking greater 07/09/24 13:08 within the last 15 years than 15 years ago Hx Smoking Cessation Date 05/21/04 07/09/24 13:08 Hx Smoking Cessation Counseling Hematologic Medial History Hematologic Hx - corporate receptionist: Hematologic Medical Hx - group work program aide Hx of Blood Transfusion No 07/09/24 13:08 Hx of Transfusion in last 3 No 07/09/24 13:08 Months Date of Last Transfusion (if within last 3 months) Ever experience any problems No 07/09/24 13:08 with transfusion(s)? Specify any problems Hx of Preganancy in last 3 N/A 07/09/24 13:08 Months Nurse Filling Out Transfusion NBUCHER 07/09/24 13:08 & Questions: Date: 07/09/24 07/09/24 13:08 Time: 13:09 07/09/24 13:08 Patient unable to answer at this time (ie. confused, unrespo /Reproduction History /Reproductive History - corporate receptionist: /Reproductive Hx- corporate receptionist Hx Now No 07/09/24 13:08 Gestational Age (in weeks): EDC: Hx Hx Para Hx Section SAB No 07/09/24 13:08 Active Medications Active Medications: Current Medications Generic Name Dose Route Start Last Admin Trade Name Freq PRN Reason Stop Dose Admin Cefazolin Sodium 2 gm/ N/A 20 mls @ 400 mls/hr 07/23/24 07:30 IV 07/23/24 07:32 PREOP ONE Sodium Chloride 1,000 mls @ 15 mls/hr 07/23/24 06:20 IV 07/28/24 19:39 .Q48H [facility] Protocol PFSH Medical History Arthritis Cancer Prostate disease Heartburn Gastric reflux Former smoker Hypertension History of pacemaker Cardiology follow-up encounter Abnormal prostate biopsy Prostate cancer Localized skin mass, lump, or swelling Erectile dysfunction Flu vaccine need Elevated PSA Preventative health care Blood glucose elevated Normal colonoscopy Wears glasses Gout High cholesterol Health care maintenance Colon cancer screening Right knee pain Paroxysmal atrial fibrillation Non-ischemic cardiomyopathy Essential (primary) hypertension Left bundle branch block (LBBB) Home Medications ?Medication ?Instructions ?Recorded ?Last Taken ?Type ldyjbbbwqubt-Ms-kgoq-minerals 18 1 tab PO DAILY Unknown History mg-0.4 mg tablet (Maximum Daily Multivitamin) cetirizine 10 mg capsule (Zyrtec) 10 mg PO DAILY PRN a llergy symptoms 12/07/21 Unknown History carvedilol 6.25 mg tablet (Coreg) 6.25 mg PO BID #180 tabs 11/23/23 Unknown Rx aspirin 81 mg tablet,delayed 81 mg PO DAILY 12/17/23 U nknown History release (Adult Low Dose Aspirin) atorvastatin 40 mg tablet 40 mg PO DAILY #90 tabs 01/20 08/11 Unknown Rx allopurinol 100 mg tablet 100 mg PO BID #180 tabs 04/22 06/13 Unknown Rx amlodipine 5 mg tablet 5 mg PO DAILY #90 tabs 05/20 Unknown Rx lisinopril 40 mg tablet 40 mg PO DAILY blood pressur e #90 05/20/24 Unknown Rx tabs tadalafil 5 mg tablet 5 mg PO DAILY PRN sexual act ivity 07/09/24 Unknown History Allergy/AdvReac Type Severity Reaction Status Date / Time No Known Allergies Allergy Verified 07/23/24 06:35 Family History Unknown No problems noted. Mother Alzheimer's dementia Mother Hypertension Father CVA (cerebral vascular accident) Hypertension Surgical History History of colonoscopy History of ear surgery History of tonsillectomy History of radiofrequency ablation procedure for cardiac arrhythmia (03/07/18) Biventricular implantable cardioverter-defibrillator (ICD) in situ (03/07/18) History of left heart catheterization (06/13/17) Social History adopted: No household members: none number of children: 1 current occupational status: retired pets and animals: No Smoking Status: Former smoker quit date: 05/21/09 pack-years: 15 alcohol intake: current alcohol intake frequency: a few times a month substance use type: does not use caffeine: Yes (2-3) Type: coffee frequency: 3-4 times per week seatbelt use: always do you feel safe at home: Yes Review of Systems (Anesthesia) ROS Narrative System reviewed and no additional complaints, except as documented.
[2024-07-23] MEDS: 0.9% Normal Saline (1000mL) 1,000 ML 15 ML IV (06:48)
--- NOTE | 2024-07-23 07:14 | PCM.HP.STD ---
HPI - General General Date of Service: 07/23/24 Chief Complaint: prostate cancer HPI Narrative AMPARO LAYTON, is a 63 M who presents for placement of gold markers and spacer gel for radiation treatments. [facility] Medical History Arthritis Cancer Prostate disease Heartburn Gastric reflux Former smoker Hypertension History of pacemaker Cardiology follow-up encounter Abnormal prostate biopsy Prostate cancer Localized skin mass, lump, or swelling Erectile dysfunction Flu vaccine need Elevated PSA Preventative health care Blood glucose elevated Normal colonoscopy Wears glasses Gout High cholesterol Health care maintenance Colon cancer screening Right knee pain Paroxysmal atrial fibrillation Non-ischemic cardiomyopathy Essential (primary) hypertension Left bundle branch block (LBBB) Home Medications ?Medication ?Instructions ?Recorded ?Last Taken ?Type empbhtimavsq-En-cfji-minerals 18 1 tab PO DAILY 12/02/19 Unknown History mg-0.4 mg tablet (Maximum Daily Multivitamin) cetirizine 10 mg capsule (Zyrtec) 10 mg PO DAILY PRN allergy symptoms 12/07/21 Unknown History carvedilol 6.25 mg tablet (Coreg) 6.25 mg PO BID #180 tabs 11/23/23 Unknown Rx aspirin 81 mg tablet,delayed 81 mg PO DAILY 12/17/23 Unknown History release (Adult Low Dose Aspirin) atorvastatin 40 mg tablet 40 mg PO DAILY #90 tabs 02/11/24 Unknown Rx allopurinol 100 mg tablet 100 mg PO BID #180 tabs 05/20/24 Unknown Rx amlodipine 5 mg tablet 5 mg PO DAILY #90 tabs 05/20/24 Unknown Rx lisinopril 40 mg tablet 40 mg PO DAILY blood pressure #90 05/20/24 Unknown Rx tabs tadalafil 5 mg tablet 5 mg PO DAILY PRN sexual activity 07/09/24 Unknown History Allergy/AdvReac Type Severity Reaction Status Date / Time No Known Allergies Allergy Verified 07/23/24 06:35 Family History Unknown No problems noted. Mother Alzheimer's dementia Mother Hypertension Father CVA (cerebral vascular accident) Hypertension Surgical History History of colonoscopy History of ear surgery History of tonsillectomy History of radiofrequency ablation procedure for cardiac arrhythmia (03/07/18) Biventricular implantable cardioverter-defibrillator (ICD) in situ (03/07/18) History of left heart catheterization (06/13/17) Social History adopted: No household members: none number of children: 1 current occupational status: retired pets and animals: No Smoking Status: Former smoker quit date: 05/21/09 pack-years: 15 alcohol intake: current alcohol intake frequency: a few times a month substance use type: does not use caffeine: Yes (2-3) Type: coffee frequency: 3-4 times per week seatbelt use: always do you feel safe at home: Yes Vital Signs Vital Signs Vital Signs: 07/23/24 06:41 07/23/24 06:41 Temperature 97.5 F L Temperature Source Temporal Pulse Rate 59 L Respiratory Rate 16 Respiratory Pattern Normal Blood Pressure 170/77 H Blood Pressure Mean 108 Blood Pressure Source Monitor Blood Pressure Position Semi-Fowlers Blood Pressure Location Right Arm Pulse Ox 99 Oxygen Delivery Method Room Air Weight Weight: 87 kg Body Mass Index (BMI) 23.9
[2024-07-23] MEDS: Cefazolin 2 GM in Syringe IV (07:40)
--- NOTE | 2024-07-23 07:40 | OP.PCM_ITS ---
Operative Report (Standard) Operative Information Date of Procedure: 07/23/24 Pre-Operative Diagnosis: Prostate cancer Post-Operative Diagnosis: The same Surgery/Procedure Performed: Gold markers and spacer gel glass forming engineer: No Type of Anesthesia: General RN Documented Start/Stop Times: Operation Date: 07/23/24 07:30 Case Time Into Pre-Op 07/23/24 06:16 Out of Pre-Op 07/23/24 07:28 Procedure Start Time: 07:43 Procedure Stop Time: 07:54 Select all DRAINS/GRAFTS/IMPLANTS that apply: None Estimated Blood Loss: 0 Specimen collected: No Description of surgery: In the preoperative area I reviewed with the patient how the procedure is done we talked about the risk of the procedure including the risk of infection, bleeding, migration of the spacer gel, the patient is planning to have radiation to the prostate he understands that the spacer gel has demonstrated benefit in reducing the risk of toxicity from the ration radiation to the rectum but there is no guarantees that this spacer gel will prevent any serious complications or toxicity to the rectum or bowels. After reviewing this with the patient and his family organ to proceed with placement of a spacer gel matrix. The penis and testicles were prepped and draped in usual sterile fashion, ultrasound probe was placed into the rectum and biplanar ultrasound was per formed on the prostate. Identified the base mid and apex of the prostate identified the transition zone prostate. Then using a needle the first dietary aide cook was placed into the right base of the prostate, the second dietary aide cook was placed in the left base of the prostate, and the third core marker was placed in the right apex of the prostate after all 3 markers were placed the placement of the markers were confirmed by ultrasonography. Patient was taken back to the operating room after smooth induction of anesthesia he was placed supine on the table. The genitals and perineum were prepped and draped in usual sterile fashion. I then introduced a biplanar ultrasound probe into the rectum and performed ultrasonography and identified the Denonvilliers' fascia the prostate mid base and apex and seminal vesicles. The spacer gel mix was then prepared on the back table per manufactures instruction. Under ultrasound guidance in the midline perineum a bevel needle down we advanced through the perineum below the prostate into the space of Denonvilliers' fascia. This space which could be identified by ultrasound with a bright white layer between the prostate and the rectum. I then injected a puff of normal saline to identify the space further. After I confirmed that the needle was in the correct space in the mid prostate and the space of Denonvilliers' fascia between the rectum and the prostate. Then over the course of 15 seconds the gel matrix was injected slowly there was nice separation between the prostate and the rectum at the gel matrix was injected. The position of the gel matrix was confirmed by ultrasound. Then the injection needle was removed intact. Patient's perineum was cleaned patient was taken out of stirrups and then taken back to the PACU in good condition. Surgical Findings: ; Complications Complications: No Admit VTE Documentation VTE Present on Admission: No VTE Mechan Device Prophylaxis: SCD's VTE Pharm Prophylaxis ordered?: No
--- NOTE | 2024-07-23 07:40 | DCINST_ITS ---
Discharge Instructions Diet Discharge Diet: No restrictions DC O2, CPAP, BIPAP needs Home O2 Discharge instructions: No Dressing / Incision Discharge Activity: Return to Normal Activity and May Not Drive (while taking narcotic pain medications.) Dressing / Incision Call your doctor if you observe: Fever of 101 or Higher Follow Up Care Please Follow Up With: James Saldaña MD When: Call [phone] for an appointment Test Results: Test results from this visit will be discussed in further detail at your follow- up appointment, if applicable. Discharge Plan Admission Attending Provider: James Saldaña Primary Care Provider: Patricia Nguyen Instructions Print Language: Croatian Discharge Orders/Prescriptions Prescriptions: No Action Maximum Daily Multivitamin 18-0.4 mg tablet 1 tab PO DAILY Zyrtec 10 mg capsule 10 mg PO DAILY PRN (Reason: allergy symptoms) aspirin [Adult Low Dose Aspirin] 81 mg tablet,delayed release (DR/EC) 81 mg PO DAILY tadalafil 5 mg tablet 5 mg PO DAILY PRN (Reason: sexual activity) carvedilol [Coreg] 6.25 mg tablet 6.25 mg PO BID Qty: 180 3RF Rx Instructions: give with food (meal/snack) atorvastatin 40 mg tablet 40 mg PO DAILY Qty: 90 2RF amlodipine 5 mg tablet 5 mg PO DAILY Qty: 90 3RF lisinopril 40 mg tablet 40 mg PO DAILY Qty: 90 3RF allopurinol 100 mg tablet 100 mg PO BID Qty: 180 3RF Referrals / Follow Up: Patricia Nguyen MD [Primary Care Provider] - Disposition Disposition (needs filled in before D/C Order can be placed): Home, Self Care
--- NOTE | 2024-07-23 08:08 | PCM.POST.ANE ---
Anesthesia: Postop Eval I Current Vital Signs Temperature: 97.6 F Pulse Rate: 60 Blood Pressure: 115/65 Respiratory Rate: 12 Pulse Ox: 94 Oxygen Delivery Method: Nasal Cannula Oxygen Flow Rate (L/min): 4 Assessment Airway patent: Yes Spontaneous unlabored respirations: Yes Mental status: Asleep nausea: No Vomiting: No Anesthesia Complication: No Fluid Hydration Crystalloid volume administer (ml): 700 Total IV fluid infused: 700 Progress Note Anesthesia document: Postop Eval 1 completed: Yes
--- NOTE | 2024-07-23 08:13 | POSTOPAN2_ITS ---
Anesthesia Postop Eval I Sum Postop Eval Completion status Anesthesia document: Postop Eval 1 completed: Yes Anesthesia Postop Eval I Summary Anesthesia Postop Eval I Summary: Anesthesia Postop Eval I: Assessment Summary Airway patent Yes 07/23/24 08:09 SEWAGE DISPOSAL [email or web address] Spontaneous unlabored Yes 07/23/24 08:09 SEWAGE DISPOSAL [email or web address] respirations Mental status Asleep 07/23/24 08:09 SEWAGE DISPOSAL [email or web address] nausea No 07/23/24 08:09 SEWAGE DISPOSAL [email or web address] Vomiting No 07/23/24 08:09 SEWAGE DISPOSAL [email or web address] Anesthesia Postop Eval I: Fluid Summary Crystalloid volume administer 700 07/23/24 08:09 SEWAGE DISPOSAL [email or web address] (ml) Colloids volume administered ( ml) Blood Product volume administered (ml) Total IV fluid infused 700 07/23/24 08:09 SEWAGE DISPOSAL [email or web address] Anesthesia Postop Eval I: Summary Notes Anesthesia Complication No 07/23/24 08:09 SEWAGE DISPOSAL [email or web address] Anesthesia Complication Comment: Post-operative progress note Anesthesia: Postop Eval II Evaluation Mental status: Awake Pain Level: 0 nausea: No Vomiting: No
--- NOTE | 2024-07-23 08:13 | PCM.POSTANE2 ---
Anesthesia Postop Eval I Sum Postop Eval Completion status Anesthesia document: Postop Eval 1 completed: Yes Anesthesia Postop Eval I Summary Anesthesia Postop Eval I Summary: Anesthesia Postop Eval I: Assessment Summary Airway patent Yes 07/23/24 08:09 MARKETING AUTOMATION [email or web address] Spontaneous unlabored Yes 07/23/24 08:09 MARKETING AUTOMATION [email or web address] respirations Mental status Asleep 07/23/24 08:09 MARKETING AUTOMATION [email or web address] nausea No 07/23/24 08:09 MARKETING AUTOMATION [email or web address] Vomiting No 07/23/24 08:09 MARKETING AUTOMATION [email or web address] Anesthesia Postop Eval I: Fluid Summary Crystalloid volume administer 700 07/23/24 08:09 MARKETING AUTOMATION [email or web address] (ml) Colloids volume administered ( ml) Blood Product volume administered (ml) Total IV fluid infused 700 07/23/24 08:09 MARKETING AUTOMATION [email or web address] Anesthesia Postop Eval I: Summary Notes Anesthesia Complication No 07/23/24 08:09 MARKETING AUTOMATION [email or web address] Anesthesia Complication Comment: Post-operative progress note Anesthesia: Postop Eval II Evaluation Mental status: Awake Pain Level: 0 nausea: No Vomiting: No
== END 2024-07-23 08:59 | disposition home or self-care (01) ==
LOC: SDC 05:55 → AC 05:56
PROVIDERS: PCP Internal Medicine; Referring Provider Urology; Visit Provider Urology
PROC: (CPT 55874; principal; 2024-07-23 07:15)
DX: C61 Malignant neoplasm of prostate (principal); I48.0 Paroxysmal atrial fibrillation; I42.8 Other cardiomyopathies; M10.9 Gout, unspecified; E78.00 Pure hypercholesterolemia, unspecified; I10 Essential (primary) hypertension; Z79.899 Other long term (current) drug therapy; Z79.82 Long term (current) use of aspirin; Z87.891 Personal history of nicotine dependence; Z95.810 Presence of automatic (implantable) cardiac defibrillator
CPT/HCPCS: 55876; 00902; J2405

== ENCOUNTER → 2024-07-30 | Outpatient (CLI) | payer MEDICARE, OTHER, SELFPAY ==
--- NOTE | 2024-07-30 13:08 | MRI_ITS ---
PROCEDURE: PELVIS W/WO CONTRAST ([id number]), 07/30/2024 REASON FOR EXAM: PLANNING FOR XRT, EVAL EXTENT OF DISEASE TECHNIQUE: Multisequence multiplanar MRI pelvis was performed with and without IV contrast. CONTRAST: 17 mL Clariscan. COMPARISON: None FINDINGS: Note dynamic postcontrast imaging was not performed; an alternative PI-RADS algorithm was therefore utilized. Limitation related to prominent T1 bright presumed postprocedural blood products within the bilateral posterior peripheral zones, particularly in the absence of dynamic postcontrast and/or subtraction sequences. Variable overall mild motion limitation Prostate size: 3.5 x 5.5 x 4.3 cm, estimated volume 43 mL. Spacer gel present with good separation of the anterior rectum and posterior prostate at the level of the midgland. Closest margins at the level of the base roughly 3 mm and apex roughly 4 mm. Fiducial markers. Transition zone: PI-RADS 2 findings. Peripheral Zone: Limitation related to presumed postprocedural blood products as above. Additional background changes of likely prostatitis (PI-RADS 2). Additional lesions as below: *Lesion 1: Right mid posterior peripheral zone, obscured by immediately adjacent blood products, roughly 1.2 cm (series 9, image [id number]). Possible hemorrhage exclusion sign. *T2 score: Partially obscured by blood products, difficult to characterize; felt the best considered T2 score 4 *DWI score: Difficult to characterize given limitations; felt the best considered DWI score 4 *DCE: N/A. *Overall PI-RADS: Difficult to categorize given limitations, felt the best considered PI-RADS 4. *Extracapsular extension:No gross extracapsular extension, however, there is capsular abutment greater than 1 cm which increases the risk of occult early/microscopic extracapsular extension. Note that this includes the region of the right neurovascular bundle, which appears grossly unremarkable. *Lesion 2: Left mid anterior peripheral zone, 0.8 cm (series 9, image 21). *T2 score: 4 *DWI score: 4 *DCE: N/A. *Overall PI-RADS: 4. *Extracapsular extension:Capsular abutment without gross extracapsular extension. Neurovascular bundles: As above. Seminal vesicles: Unremarkable. Bladder: Unremarkable. Lymph nodes: Unremarkable. Bones: No destructive or frankly suspicious bony lesions identified. Other: None. MRI/Pelvis W/WO Contrast IMPRESSION: 1. Exam limited by fairly considerable peripheral zone presumed postprocedural blood products. Consider a follow-up exam after resolution for improved delineation. 2. Spacer gel present with good separation of the anterior rectum and posterior prostate at the level of the midgland. Closest margins at the level of the base roughly 3 mm and apex roughly 4 mm. 3. 1.2 cm suspected lesion in the right mid posterior peripheral zone is partia lly obscured and difficult to categorize given presumed postprocedural blood products as above, felt the best considered PI-RA DS 4 (lesion 1). 4. 0.8 cm PI-RADS 4 lesion in the left mid anterior peripheral zone (lesion 2). 5. No gross extracapsular extension, however, there is capsular abutment by bot h lesions and for greater than 1 cm by lesion 1 which increases the risk of occult early/microscopic extracapsular extension. N ote that this includes the region of the right neurovascular bundle, which appears grossly unremarkable. 6. No overt pelvic lymphadenopathy. 7. Additional description as above. Reading Location: [id number]
[2024-07-30 13:40] VITALS: BP 137/83; PULSE 60; RESP 18; O2SAT 96
[2024-07-30 13:55] VITALS: BP 129/73; PULSE 80; O2SAT 95
[2024-07-30 14:07] VITALS: BP 116/76; PULSE 80; O2SAT 94
[2024-07-30 14:19] VITALS: BP 122/75; PULSE 80; O2SAT 92
[2024-07-30 14:33] VITALS: BP 121/73; PULSE 80; O2SAT 94
[2024-07-30 14:42] VITALS: BP 118/79; PULSE 80; O2SAT 93
== END | disposition home or self-care (01) ==
LOC: MRI 13:01
PROVIDERS: PCP Internal Medicine; Referring Provider Student in an Organized Health Care Education/Training Program; Visit Provider Student in an Organized Health Care Education/Training Program
DX: C61 Malignant neoplasm of prostate (principal)
CPT/HCPCS: 72197; A9575

== ENCOUNTER → 2024-11-10 | Outpatient (CLI) | payer MEDICARE, OTHER, SELFPAY ==
--- OUTSIDE RECORDS SUMMARY | 2024-11-10 10:42 | XMS RPT_ITS | CCD ---
Author Organization [facility] Care Team Providers Care Radio Electronics Technician Name Role Phone Dr. Patricia Nguyen Primary Care Provider [phone] Dr. Lucas Law Attending Provider [phone] Dr. Lucas Law Referring Provider [phone] Victorina Lanza Attending Provider Unavailable Dr. Patricia Nguyen Referring Provider [phone] Dr. Julián Mccoy Attending Provider Dr. Julián Mccoy Other Provider Dr. Patricia Nguyen Attending Provider [phone] Dr. Patricia Nguyen Primary Care Provider [phone] Dr. Patricia Nguyen Referring Provider [phone] Dr. Paddy Adhikari Attending Provider [phone] Dr. Paddy Adhikari Referring Provider [phone] Patricia Nguyen Attending Provider [phone] Dr. Patricia Nguyen Primary Care Provider [phone] Dr. Patricia Nguyen Attending Provider [phone] Dr. Patricia Nguyen Referring Provider [phone] Dr. Patricia Nguyen MD Primary Care Provider Piotr BAIG, Dr. James Gonzalez Attending Provider [phone] Dr. James Saldaña MD Referring Provider Lissette Sterling Attending Provider Unavailable Dr. Dandre Carvalho DO Attending Provider Zeynep BAIG, Dr. Thomason Attending Provider Patrick BAIG, Dr. Gomez Referring Provider [facility] MACHINE CAGE MAKER-Amparo Galarza Attending Provider Zeyenp BAIG, Dr. Thomason Referring Provider Deven HOOD, Dr. Amos Referring Provider Genny Edgar Attending Provider Unavailable Adithya Johnson Attending Provider Patrick BAIG, Dr. Gomez Primary Care Provider Piotr BAIG, Dr. James Gonzalez Attending Provider Piotr BAIG, Dr. James Gonzalez Referring Provider [phone] Zeynep BAIG, Dr. Thomason Attending Provider Deven HOOD, Dr. Amos Attending Provider Deven HOOD, Dr. Amos Referring Provider Zeynep BAIG, Dr. Thomason Referring Provider Patrick BAIG, Dr. Gomez Referring Provider James Saldaña Referring Unavailable PiotrJames grant Attending Unavailable Oleghe, Efewongbe Primary Care Unavailable PiotrJames grant Attending Unavailable PiotrJames Referring Unavailable Oleghe, Efewongbe Primary Care Unavailable Oleghe, Efewongbe Referring Unavailable Oleghe, Efewongbe Attending Unavailable Oleghe, Efew[place]be Primary Care Unavailable Paddy Adhikari Attending Unavailable Oleghe, Efewongbe Primary Care Unavailable Dandre Carvalho Attending Unavailable Deven, Dandre Referring Unavailable Oleghe, Efewongbe Primary Care Unavailable [facility] Amparo HARO Attending Unavailable Oleghe, Efewongbe Referring Unavailable Oleghe, Efewongbe Primary Care Unavailable Deven Dandre Referring Unavailable Deven Dandre Attending Unavailable Oleghe, Efewongbe Primary Care Unavailable Deven Dandre Referring Unavailable Deven Dandre Attending Unavailable Oleghe, Efewongbe Primary Care Unavailable Oleghe, Efewongbe Referring Unavailable Oleghe, Efewongbe Primary Care Unavailable Genny Edgar Attending Unavailable James Saldaña Attending Unavailable Piotr Mark Referring Unavailable Oleghe, Efewongbe Primary Care Unavailable Zeynep, Paddy Referring Unavailable Zeynep, Paddy Attending Unavailable Oleghe, Efewongbe Primary Care Unavailable Zeynep, [place] Attending Unavailable Zeynep, Paddy Referring Unavailable Oleghe, Efewongbe Primary Care Unavailable Deven, Dandre Referring Unavailable Deven, Dandre Attending Unavailable Oleghe, Efewongbe Primary Care Unavailable Deven, Dandre Referring Unavailable Deven, Dandre Attending Unavailable Oleghe, Efewongbe Primary Care Unavailable Oleghe, Efewongbe Referring Unavailable Oleghe, Efewongbe Primary Care Unavailable Genny Edgar Attending Unavailable Zeynep, [place] Attending Unavailable Oleghe, Efewongbe Primary Care Unavailable NURSE, BIM Attending Unavailable Oleghe, Efewongbe Referring Unavailable Oleghe, [place] Primary Care Unavailable Dandre Carvalho Attending Unavailable PiotrJanelleMark Referring Unavailable Oleghe, Efewongbe Primary Care Unavailable Zeynep, [place] Referring Unavailable Zeynep, Paddy Attending Unavailable Oleghe, E[place]be Primary Care Unavailable Deven, Dandre Referring Unavailable DevenYosvany freitase Attending Unavailable Oleghe, Efewongbe Primary Care Unavailable DevenYosvany freitase Attending Unavailable Oleghe, Efew[place]be Referring Unavailable Oleghe, Efew[place]be Primary Care Unavailable Deven, Dandre Referring Unavailable DevenYosvany freitase Attending Unavailable Oleghe, [place] Primary Care Unavailable Yosvany Carvalhoe Attending Unavailable Deven, Dandre Referring Unavailable Oleghe, Efewongbe Primary Care Unavailable Deven, Dandre Referring Unavailable DevenYosvany freitase Attending Unavailable Oleghe, [place] Primary Care Unavailable Piotr Mark Referring Unavailable PiotrJamesMark Attending Unavailable Oleghe, [place] Primary Care Unavailable Yosvany Carvalhoe Attending Unavailable Oleghe, Efewongbe Primary Care Unavailable Yosvany Carvalhoe Attending Unavailable Deven, Dandre Referring Unavailable Oleghe, Efewongbe Primary Care Unavailable Lissette Sterling Attending Unavailable Oleghe, [place]be Primary Care Unavailable Zeynep, Paddy Referring Unavailable Zeynep, Paddy Attending Unavailable Oleghe, Efewongbe Primary Care Unavailable Zeynep, Paddy Referring Unavailable Zeynep, [place] Attending Unavailable Oleghe, [place]be Primary Care Unavailable Zeynep, [place] Referring Unavailable Zeynep, [place] Attending Unavailable Oleghe, Efewongbe Primary Care Unavailable Oleghe, Efewongbe Referring Unavailable Oleghe, Efewongbe Attending Unavailable Oleghe, [place] Primary Care Unavailable Oleghe, Efew[place]be Referring Unavailable Oleghe, [place]be Primary Care Unavailable Adithya Casillas Attending Unavailable Oleghe, Efewongbe Primary Care Unavailable Zeynep, Paddy Attending Unavailable Medications Current Medications Medication Drug Class(es) Dates Sig (Normalized) Sig (Original) aspirin 81 mg delayed release oral tablet (20 sources) Platelet Aggregation Inhibitor, Nonsteroidal Anti-inflammatory Drug Start: 12-17-2023 Aspirin (Adult Low Dose Aspirin) 81 mg tablet,delayed release (DR/EC) Active 81 mg PO DAILY December 17, 2023 12:00am Start: 06-13-2017 End: 07-11-2017 take 1 tablet by mouth once daily Aspirin 81 MG tablet,chewable Discontinued 81 mg PO DAILY@00 June 13, 2017 1:00am July 11, 2017 2:32pm Start: 06-12-2017 End: 2019 take 1 tablet by mouth once daily Aspirin 81 MG tablet Discontinued 81 mg PO DAILY@0800 June 12, 2017 1:00am 2019 9:10am cetirizine hydrochloride 10 mg oral capsule (7 sources) Histamine-1 Receptor Antagonist Start: 12-07-2021 take 1 capsule by mouth once daily as needed Cetirizine (Zyrtec) 10 mg capsule Active 10 mg PO DAILY as needed for allergy symptoms December 07, 2021 12:00am meloxicam 15 mg oral tablet (4 sources) Nonsteroidal Anti-inflammatory Drug Start: 08-08-2024 take 1 tablet by mouth once daily Meloxicam 15 mg tablet Active 15 mg PO daily August 08, 2024 12:00am Yznowrilbbfs-Gy-Xkwh -Minerals (Maximum Daily Multivitamin) 18-0.4 mg tablet (8 sources) Start: 12-02-2019 Multivitamin-C a- Iron-Minerals (Maximum Daily Multivitamin) 18-0.4 mg tablet Active 1 {tbl} PO DAILY December 02, 2019 12:00am Start: 12-02-2019 take 1 tablet by marc th once daily Myogqtsmbams-Gd-Kfvj-Minerals (Maximum D aily Multivitamin) 18-0.4 mg tablet Active 1 TABLET PO DAILY December 01, 2019 11:00pm Start: 12-02-2019 take 1 tablet by marc th once daily Eoydqbrgutrz-Wy-Fskn-Minerals (Maximum D aily Multivitamin) 18-0.4 mg tablet Active 1 TABLET PO DAILY December 02, 2019 12:00am tadalafil 5 mg oral tablet (8 sources) Phosphodiesterase 5 Inhibitor Start: 12-24-2023 End: 07-09-2024 take 1 tablet by mouth once daily as needed Tadalafil 5 mg tablet Active 5 mg PO DAILY as needed for sexual activity July 09, 2024 1:00am Completed/Discontinued Medications Medication Drug Class(es) Dates Sig (Normalized) Sig (Original) allopurinol 100 mg oral tablet (20 sources) Xanthine Oxidase Inhibitor Start: 12-28-2020 End: 05-20-2024 take 1 tablet by mouth twice daily Allopurinol 100 mg tablet Discontinued 100 mg PO TWICE A DAY 180 November 23, 2023 12:29pm May 20, 2024 12:20pm Start: 09-24-2020 End: 12-28-2020 take 1 tablet by mouth once daily Allopurinol 100 mg tablet Discontinued 100 mg PO DAILY September 24, 2020 12:00am December 28, 2020 8:25am amLODIPine 5 mg oral tablet (20 sources) Dihydropyridine Calcium Channel Last Start: 01-04-2021 End: 05-20-2024 take 1 tablet by mouth once daily Amlodipine 5 mg tablet Discontinued 5 mg PO DAILY November 23, 2023 12:29pm May 20, 2024 12:20pm atorvastatin 40 mg oral tablet (20 sources) HMG-CoA Reductase Inhibitor Start: 06-13-2017 End: 02-11-2024 take 1 tablet by mouth once daily Atorvastatin 40 mg tablet Discontinued 40 mg PO DAILY March 05, 2023 3:59pm February 11, 2024 4:30pm carvedilol 6.25 mg oral tablet (20 sources) alpha-Adrenergic Last, beta-Adrenergic Last Start: 08-13-2017 End: 11-23-2023 take 1 tablet by mouth twice daily at mealtime Carvedilol (Coreg) 6.25 mg tablet Discontinued 6.25 mg PO TWICE A DAY 180 December 12, 2022 10:15am November 23, 2023 1:24pm give with food (meal/snack) Start: 06-19-2017 End: 08-13-2017 take 6.25 mg by mouth twice daily Carvedilol 12.5 MG tablet Discontinued 6.25 mg PO TWICE A DAY 60 June 19, 2017 5:38pm August 13, 2017 1:19pm Start: 06-19-2017 End: 08-13-2017 take 6.25 mg by mouth twice daily Carvedilol Discontinued 6.25 MG PO TWICE A DAY 60 June 19, 2017 4:38pm August 13, 2017 12:19pm Start: 06-12-2017 End: 06-19-2017 take 1 tablet by mouth twice daily Carvedilol 12.5 MG tablet Discontinued 12.5 mg PO TWICE A DAY 60 June 13, 2017 1:00am June 19, 2017 5:38pm colchicine 0.6 mg oral tablet (20 sources) Start: 08-11-2020 End: 12-28-2020 take 2 tablets by mouth once daily, then take 1 tablet by mouth every hour Colchicine (Colcrys) 0.6 mg tablet Discontinued 0.6 mg PO DAILY September 24, 2020 8:25am October 05, 2020 9:11am 1.2 mg x 1 dose, then .6 mg 1 hour later Start: 12-02-2019 End: 09-24-2020 take 1 capsule by mouth once daily as needed Colchicine 0.6 mg capsule Discontinued 0.6 mg PO DAILY as needed December 02, 2019 12:00am September 24, 2020 8:25am hydroCHLOROthiazide 12.5 mg oral capsule (20 sources) Thiazide Diuretic Start: 10-05-2020 End: 12-28-2020 take 1 capsule by mouth once daily Hydrochlorothiazide 12.5 mg capsule Discontinued 12.5 mg PO DAILY October 05, 2020 12:00am December 28, 2020 8:07am Start: 06-12-2017 End: 10-05-2020 Hydrochlorothiazide 25 mg ta blet Discontinued 12.5 mg PO DAILY April 02, 2020 6:59pm October 05, 2020 9:10am Start: 06-12-2017 End: 10-05-2020 take 12.5 mg by mouth once daily Hydrochlorothiazide Discontinued 12.5 MG PO DAILY April 02, 2020 5:59pm October 05, 2020 8:10am krill oil (4 sources) Start: 12-02-2019 End: 06-15-2020 krill oil Discontinued PO DA SONALI December 01, 2019 11:00pm June 15, 2020 8:26am Start: 12-02-2019 End: 06-15-2020 krill oil Discontinued PO DA SONALI December 02, 2019 12:00am June 15, 2020 9:26am krill oil kit (4 sources) Start: 12-02-2019 End: 06-15-2020 krill oil kit Discontinued PO DAILY December 02, 2019 12:00am June 15, 2020 9:26am lisinopril 40 mg oral tablet (20 sources) Angiotensin Converting Enzyme Inhibitor Start: 06-12-2017 End: 05-20-2024 take 1 tablet by mouth once daily Lisinopril 40 mg tablet Discontinued 40 mg PO DAILY November 23, 2023 12:29pm May 20, 2024 12:20pm methylPREDNISolone 4 mg oral tablet (8 sources) Corticosteroid Start: 09-24-2020 End: 10-05-2020 Methylprednisolone 4 mg tablets,dose pack Discontinued 0 PO per package directions September 24, 2020 12:00am October 05, 2020 9:11am PO PER PKG DIR Start: 09-24-2020 End: 10-05-2020 Methylprednisolone Discontin ued 0 PO per package directions September 23, 2020 11:00pm October 05, 2020 8:11am PO PER PKG DIR Start: 09-24-2020 End: 10-05-2020 Methylprednisolone Discontin ued 0 PO per package directions September 24, 2020 12:00am October 05, 2020 9:11am PO PER PKG DIR predniSONE 10 mg oral tablet (8 sources) Start: 12-30-2020 End: 02-16-2021 take 4 tablets by mouth once daily, then take 3 tablets by mouth once daily, then take 2 tablets by mouth once daily, then take 1 tablet by mouth once daily Prednisone 10 mg tablet Discontinued 10 mg PO DAILY December 30, 2020 12:00am February 16, 2021 8:09am 4 tablets daily for 3 days, then 3 tablets daily for 3 days, then 2 tablets daily for 3 days, then 1 tablets daily for 3 days rivaroxaban 20 mg oral tablet (20 sources) Factor Xa Inhibitor Start: 06-13-2017 End: 03-17-2021 take 1 tablet by mouth once daily Rivaroxaban 20 mg tablet Discontinued 20 mg PO DAILY August 03, 2020 3:01pm October 05, 2020 9:11am sildenafil 50 mg oral tablet (8 sources) Phosphodiesterase 5 Inhibitor Start: 12-20-2023 End: 12-24-2023 Sildenafil 50 mg tablet Discontinued 25 mg PO DAILY as needed for sexual activity December 20, 2023 1:41pm December 24, 2023 4:38pm administer 1/2 tab 30 minutes to 4 hours before activity. simvastatin 20 mg oral tablet (8 sources) HMG-CoA Reductase Inhibitor Start: 06-12-2017 End: 06-13-2017 take 1 tablet by mouth at bedtime Simvastatin 20 MG tablet Discontinued 20 mg PO AT BEDTIME June 12, 2017 1:00am June 13, 2017 4:30pm tamsulosin hydrochloride 0.4 mg oral capsule (9 sources) alpha-Adrenergic Last Start: 08-11-2024 End: 10-10-2024 take 1 tablet by mouth once daily at bedtime Tamsulosin (Flomax) 0.4 mg capsule Discontinued 0.4 mg PO AT BEDTIME September 12, 2024 10:52am October 10, 2024 8:16am take one tab PO qHS Problems Active Problems Problem Classification Problem Date Documented Date Episodic/Chronic Cancer of prostate (13 sources) Primary malignant neoplasm of prostate; Translations: [Malignant neoplasm of prostate] Onset: 09-08-2024 05-20-2024 Chronic Cardiac dysrhythmias (18 sources) Paroxysmal atrial fibrillation; Translations: [Paroxysmal atrial fibrillation] Onset: 08-14-2024 Chronic Cardiac dysrhythmias (8 sources) Palpitations; Translations: [Palpitations] 09-27-2020 Episodic Conduction disorders (20 sources) Biventricular automatic implantable cardioverter defibrillator in situ; Translations: [Presence of automatic (implantable) cardiac defibrillator] Onset: 03-07-2018 Chronic Diabetes mellitus without complication (6 sources) Hyperglycemia; Translations: [Hyperglycemia, unspecified] 06-11-2022 Episodic Disorders of lipid metabolism (12 sources) Hyperlipidemia; Translations: [Hyperlipidemia, unspecified] Onset: 12-18-2023 Chronic Essential hypertension (13 sources) Essential hypertension; Translations: [Essential (primary) hypertension] Onset: 12-18-2023 Chronic Gout and other crystal arthropathies (10 sources) Gout; Translations: [Gout, unspecified] Chronic Other connective tissue disease (8 sources) Rotator cuff impingement syndrome; Translations: [Impingement syndrome of right shoulder] 08-08-2024 Episodic Other connective tissue disease (1 source) Impingement syndrome of right shoulder; Translations: [Impingement syndrome of right shoulder] Onset: 08-08-2024 Episodic Other male genital disorders (5 sources) Male erectile dysfunction, unspecified; Translations: [Erectile dysfunction] Onset: 01-08-2024 12-17-2023 Chronic Other non-traumatic joint disorders (8 sources) Pain in right knee; Translations: [Right knee pain] 06-06-2021 Episodic Other skin disorders (4 sources) Mass of skin; Translations: [Localized swelling, mass and lump, unspecified] 12-17-2023 Episodic Claribel-; endo-; and myocarditis; cardiomyopathy (except that caused by tuberculosis or sexually transmitted disease) (20 sources) Cardiomyopathy; Translations: [Other cardiomyopathies] Onset: 08-14-2024 Chronic Past or Other Problems Problem Classification Problem Date Documented Date Episodic/Chronic Immunizations and screening for infectious disease (7 sources) Needs influenza immunization; Translations: [Encounter for immunization] Onset: 03-21-2024 03-12-2023 Episodic Other screening for suspected conditions (not mental disorders or infectious disease) (16 sources) Patient encounter status; Translations: [Encounter for screening for malignant neoplasm of colon] Onset: 05-30-2024 Episodic Other skin disorders (1 source) Localized swelling, mass and lump, unspecified; Translations: [Localized swelling, mass and lump, unspecified] Onset: 12-18-2023 Episodic Residual codes; unclassified (8 sources) History of cardiac catheterization; Translations: [Other specified postprocedural states] Onset: 06-13-2017 09-27-2020 Episodic Results Test Name Value Interpretation Reference Range Facility Radiation Oncology Visiton 0 09-15-2024 Radiation Oncology Visit [facility] [place] [address] OFFICE VISIT Date of Service: 09/15/24 1436 MR#: [id number] Acct: [id number] Name: AMPARO MCDANIEL Rep #: [id number] : 1960 From: Dandre Carvalho DO Age/Sex: 64/M Location: [facility] Status: Signed Intake Vital Signs 08/13/24 13:11 08/15/24 13:12 09/15/24 14:37 Height 6 ft 3 in 6 ft 3 in 6 ft 3 in Weight: 193 lb 4 oz BMI 24.1 BP 152/80 H Blood Pressure Location Rt brachial Position Sitting Respiration 18 Pulse 59 L Pulse Source Monitor Temp 96.7 F L Temperature Source Temporal Artery Pulse Oximetry (%) 96 Oxygen Delivery Method room air Intake Visit Reasons: 1 MONTH F/U POST RT Is patient in pain?: No Allergies No Known Allergies Allergy (Verified 08/13/24 13:10) Medications ???Medication ???Instructions ???Recorded ???Confirmed ???Type isfgjjijnlab-Et-pbkz -minerals 18 1 tab PO DAILY 12/02/19 09/15/24 H istory mg-0.4 mg tablet (Maximum Daily Multivitamin) cetirizine 10 mg capsule (Zyrtec) 10 mg PO DAILY PRN allergy sympto ms 12/07/21 09/15/24 History carvedilol 6.25 mg tablet (Coreg) 6.25 mg PO BID #180 tabs 11/23/23 09/15/24 Rx aspirin 81 mg tablet,delayed 81 mg PO DAILY 12/17/23 09/15/24 H istory release (Adult Low Dose Aspirin) atorvastatin 40 mg tablet 40 mg PO DAILY #90 tabs 02/11/24 0 09/15/24 Rx allopurinol 100 mg tablet 100 mg PO BID #180 tabs 05/20/24 0 09/15/24 Rx amlodipine 5 mg tablet 5 mg PO DAILY #90 tabs 05/20/24 Rx lisinopril 40 mg tablet 40 mg PO DAILY blood pressure #90 05/20/24 09/15/24 Rx tabs tadalafil 5 mg tablet 5 mg PO DAILY PRN sexual activity 07/09/24 09/15/24 History meloxicam 15 mg tablet 15 mg PO QDAY #28 tabs 08/08/24 Rx tamsulosin 0.4 mg capsule (Flomax) 0.4 mg PO QHS #30 caps 09/12/24 09/15/24 Rx Have you fallen in the past year?: No PFSH PFSH Medical History Arthritis Cancer Prostate disease Heartburn Gastric reflux Former smoker Hypertension History of pacemaker Cardiology follow-up encounter Abnormal prostate biopsy Prostate cancer Localized skin mass, lump, or swelling Erectile dysfunction Flu vaccine need Elevated PSA Preventative health care Blood glucose elevated Normal colonoscopy Wears glasses Gout High cholesterol Health care maintenance Colon cancer screening Right knee pain Paroxysmal atrial fibrillation Non-ischemic cardiomyopathy Essential (primary) hypertension Left bundle branch block (LBBB) Home Medications ???Medication ???Instructions ???Recorded ???Last Taken ???Type tnetdzwemsgn-Ul-mbci -minerals 18 1 tab PO DAILY 12/02/19 Unknown Hi story mg-0.4 mg tablet (Maximum Daily Multivitamin) cetirizine 10 mg capsule (Zyrtec) 10 mg PO DAILY PRN allergy sympto ms 12/07/21 Unknown History carvedilol 6.25 mg tablet (Coreg) 6.25 mg PO BID #180 tabs 11/23/23 Unknown Rx aspirin 81 mg tablet,delayed 81 mg PO DAILY 12/17/23 Unknown Hi story release (Adult Low Dose Aspirin) atorvastatin 40 mg tablet 40 mg PO DAILY #90 tabs 02/11/24 U nknown Rx allopurinol 100 mg tablet 100 mg PO BID #180 tabs 05/20/24 U nknown Rx amlodipine 5 mg tablet 5 mg PO DAILY #90 tabs 05/20/24 Un known Rx lisinopril 40 mg tablet 40 mg PO DAILY blood pressure #90 05/20/24 Unknown Rx tabs tadalafil 5 mg tablet 5 mg PO DAILY PRN sexual activity 07/09/24 Unknown History meloxicam 15 mg tablet 15 mg PO QDAY #28 tabs 03/21/25 Un known Rx tamsulosin 0.4 mg capsule (Flomax) 0.4 mg PO QHS #30 caps 09/12/24 Unknown Rx Allergy/AdvReac Type Severity Reaction Status Date / Time No Known Allergies Allergy Verified 08/13/24 13:10 Family History Unknown No problems noted. Mother Alzheimer's dementia Mother Hypertension Father CVA (cerebral vascular accident) Hypertension Surgical History History of colonoscopy History of ear surgery History of tonsillectomy History of radiofrequency ablation procedure for cardiac arrhythmia (03/07/18) Biventricular implantable cardioverter-defibri llator (ICD) in situ (03/07/18) History of left heart catheterization (06/13/17) Social History adopted: No household members: none number of children: 1 current occupational status: retired pets and animals: No Smoking Status: Former smoker quit date: 05/21/09 pack-years: 15 alcohol intake: current alcohol intake frequency: a few times a month substance use type: does not use caffeine: Yes (2-3) Type: coffee frequency: 3-4 times per week seatbelt use: always d (more content not included)... Normal [facility] Radiation Oncology Visiton 0 08-15-2024 Radiation Oncology Visit [facility] [address] [place] [id number] OFFICE VISIT Date of Service: 08/15/24 1310 MR#: [id number] Acct: [id number] Name: AMPARO MCDANIEL Rep #: [id number] : 1960 From: Dandre Carvalho DO Age/Sex: 64/M Location: [facility] Status: Signed Intake Vital Signs 08/13/24 14:01 08/15/24 13:12 Height 6 ft 3 in 6 ft 3 in Intake Visit Reasons: Amb Documentation Chief Complaint: right shoulder pain Allergies No Known Allergies Allergy (Verified 08/13/24 13:10) Have you fallen in the past year?: No PFSH PFS Medical History Arthritis Cancer Prostate disease Heartburn Gastric reflux Former smoker Hypertension History of pacemaker Cardiology follow-up encounter Abnormal prostate biopsy Prostate cancer Localized skin mass, lump, or swelling Erectile dysfunction Flu vaccine need Elevated PSA Preventative health care Blood glucose elevated Normal colonoscopy Wears glasses Gout High cholesterol Health care maintenance Colon cancer screening Right knee pain Paroxysmal atrial fibrillation Non-ischemic cardiomyopathy Essential (primary) hypertension Left bundle branch block (LBBB) Allergy/AdvReac Type Severity Reaction Status Date / Time No Known Allergies Allergy Verified 08/13/24 13:10 Family History Unknown No problems noted. Mother Alzheimer's dementia Mother Hypertension Father CVA (cerebral vascular accident) Hypertension Surgical History History of colonoscopy History of ear surgery History of tonsillectomy History of radiofrequency ablation procedure for cardiac arrhythmia (03/07/18) Biventricular implantable cardioverter-defibri llator (ICD) in situ (03/07/18) History of left heart catheterization (06/13/17) Social History adopted: No household members: none number of children: 1 current occupational status: retired pets and animals: No Smoking Status: Former smoker quit date: 05/21/09 pack-years: 15 alcohol intake: current alcohol intake frequency: a few times a month substance use type: does not use caffeine: Yes (2-3) Type: coffee frequency: 3-4 times per week seatbelt use: always do you feel safe at home: Yes Stereotactic Body Radiation Therapy Procedure - Prostate: DATE OF PROCEDURE: 08/15/2024 RADIATION ONCOLOGIST: Dandre Carvalho D.O., M.S. ASSISTANTS: Radiation Physicist PRE-PROCEDURE DIAGNOSIS(ES): Intermediate risk prostate cancer POST-PROCEDURE DIAGNOSIS(ES): Intermediate risk prostate cancer INDICATIONS FOR PROCEDURE: The patient has clinically localized prostate cancer and has chosen to proceed with definitive Stereotactic Body Radiation Therapy (SBRT). PROCEDURE PERFORMED: Stereotactic body radiation therapy to the prostate CONSENT: Informed consent was obtained prior to the procedure. Procedure risks, benefits, alternatives and expected outcomes were discussed with the patient. All options have been reviewed and consent had been obtained prior to the procedure. Consent(s) were scanned into the electronic medical record. UNIVERSAL PROTOCOL / TIMEOUT: Pre-procedure verification is complete: patient verified and consents confirmed, procedure site was identified, timeout was called before the start of the procedure. ANESTHESIA: None RADIATION DOSE GIVEN: 725 cGy FRACTION: 5 of 5 CUMULATIVE DOSE: 3625 cGy PLANNED TOTAL DOSE: 3625 cGy DETAILS OF PROCEDURE: Amparo Mcdaniel is a 63 year-old male who presented to our clinic today for the fifth fraction of stereotactic body radiation therapy for clinically localized prostate cancer. The patient reports no interval symptoms or problems since the last evaluation in our department. The patient was aligned in the vac bag on the treatment table. The therapists completed patient positioning. The treatment team then exited the treatment room. After verification of treatment parameters, a cone beam CT scan was obtained and aligned to fiducials. After accurate localization, the treatment proceeded. Treatment was delivered with multiarc VMAT radiation therapy utilizing 6 MV FFF beams. A dose of 725 cGy was delivered. The patient tolerated the procedure well. There were no acute complications, no blood loss, and no specimens were removed. CONDITION: The patient tolerated the procedure well and was in stable condition. ATTESTATION: I was present for all critical portions of the procedure including time out, CBCT and treatment delivery. PLAN: The patient will continue with stereotactic body radiation therapy that will be given 2-3 times per week. A total of 3625 cGy in 5 fractions is planned. (more content not included)... [facility] Radiation Oncology Visit [facility] [address] [place] [address] [place] [address] OFFICE VISIT Date of Service: 08/15/24 1123 MR#: [id number] Acct: [id number] Name: AMPARO MCDANIEL Rep #: [id number] : 1960 From: Dandre Carvalho DO Age/Sex: 64/M Location: [facility] Status: Signed End of Treatment Summary: Diagnosis: Amparo Mcdaniel is a 64 year-old male diagnosed with intermediate risk prostate adenocarcinoma (PSA: 6.76, GS 3+4) s/p MRI prostate (03/14/2024) and prostate biopsy (04/30/2024) Oncologic History: 03/14/2024: Patient completed MRI prostate with and without contrast.??? This demonstrated a 1.22 cm ovoid intermediate signal nodule at the anterior segment of the right peripheral zone.??? This demonstrates enhancement on the postcontrast study is bright on diffusion weighted imaging.??? PI-RADS category 5.??? No extracapsular extension or seminal vesicle invasion is noted.??? No adenopathy is appreciated. 04/30/2024: Prostate biopsy performed, right mid prostate biopsy 4/4 cores involved with GS 3+4. Radiation Treatment History: None The patient completed a course of external beam radiotherapy in our department. This treatment was delivered for curative intent. Treatment was given according to the following parameters: AMPARO MCDANIEL received prostate SBRT consisting of 3625 cGy delivered in 5 fractions. He was treated with a VMAT technique using 6 MV FFF photons. fractions. The patient did not receive concurrent chemotherapy. Date of First Treatment: 08/06/2024 Date of Last Treatment: 08/15/2024 Total Elapsed Days (including weekend and holidays): 8 Missed Treatments: Response and Tolerance: The patient tolerated this course of radiotherapy well overall. The following radiation related toxicities developed during the course of radiation therapy: * Mild increase in LUTS treated with flomax qHS Total weight change during therapy: N/A Disposition: The patient tolerated the planned course of radiation therapy well without unexpected toxicity in an appropriate time course. I reviewed management of potential toxicities and discussed expected timing for toxicity resolution. I will have AMPARO follow-up in one month for a routine visit. AMPARO will maintain follow up with all other providers. AMPARO was instructed to call with any further questions or concerns in the interim. If we can provide any further information on this patient's course of care, please do not hesitate to ask. We would like to thank you very much for allowing us to participate in the care of this patient. Sincerely, Dandre Carvalho DO, MS Clinical Program Consultant, Department of Radiation Oncology [facility] 08/15/24 6109 Date Dandre Deven DO Rachel Signature: Date (if applicable) CC: Dr. Patricia Nguyen MD; Dr. James Saldaña MD [facility] Radiation Oncology Visiton 0 08-13-2024 Radiation Oncology Visit [facility] [address] [place] [address] OFFICE VISIT Date of Service: 08/13/24 1400 MR#: [id number] Acct: [id number] Name: AMPARO MCDANIEL Rep #: [id number] : 1960 From: Dandre Carvalho DO Age/Sex: 64/M Location: [facility] Status: Signed Intake Vital Signs 07/23/24 06:41 08/13/24 13:11 Height 6 ft 3 in 6 ft 3 in Weight: 194 lb 3 oz BMI 24.3 BP 148/85 H Blood Pressure Location Lt brachial Position Sitting Respiration 18 Pulse 60 Pulse Source Monitor Temp 97.8 F Temperature Source Temporal Artery Pulse Oximetry (%) 98 Oxygen Delivery Method room air Intake Visit Reasons: OTV Chief Complaint: right shoulder pain Allergies No Known Allergies Allergy (Verified 08/13/24 13:10) Medications ???Medication ???Instructions ???Recorded ???Confirmed ???Type [id number]-Fv-ulww -minerals 18 1 tab PO DAILY 12/02/19 08/13/24 H istory mg-0.4 mg tablet (Maximum Daily Multivitamin) cetirizine 10 mg capsule (Zyrtec) 10 mg PO DAILY PRN allergy sympto ms 12/07/21 08/13/24 History carvedilol 6.25 mg tablet (Coreg) 6.25 mg PO BID #180 tabs 11/23/23 08/13/24 Rx aspirin 81 mg tablet,delayed 81 mg PO DAILY 12/17/23 08/13/24 H istory release (Adult Low Dose Aspirin) atorvastatin 40 mg tablet 40 mg PO DAILY #90 tabs 02/11/24 0 08/13/24 Rx allopurinol 100 mg tablet 100 mg PO BID #180 tabs 05/20/24 0 08/13/24 Rx amlodipine 5 mg tablet 5 mg PO DAILY #90 tabs 05/20/24 Rx lisinopril 40 mg tablet 40 mg PO DAILY blood pressure #90 05/20/24 08/13/24 Rx tabs tadalafil 5 mg tablet 5 mg PO DAILY PRN sexual activity 07/09/24 08/13/24 History meloxicam 15 mg tablet 15 mg PO QDAY #28 tabs 08/08/24 Rx tamsulosin 0.4 mg capsule (Flomax) 0.4 mg PO QHS #30 caps 08/11/24 08/13/24 Rx Have you fallen in the past year?: No PFSH PFSH Medical History Arthritis Cancer Prostate disease Heartburn Gastric reflux Former smoker Hypertension History of pacemaker Cardiology follow-up encounter Abnormal prostate biopsy Prostate cancer Localized skin mass, lump, or swelling Erectile dysfunction Flu vaccine need Elevated PSA Preventative health care Blood glucose elevated Normal colonoscopy Wears glasses Gout High cholesterol Health care maintenance Colon cancer screening Right knee pain Paroxysmal atrial fibrillation Non-ischemic cardiomyopathy Essential (primary) hypertension Left bundle branch block (LBBB) Home Medications ???Medication ???Instructions ???Recorded ???Last Taken ???Type guliwrzbjazg-Mm-tjft -minerals 18 1 tab PO DAILY 12/02/19 Unknown Hi story mg-0.4 mg tablet (Maximum Daily Multivitamin) cetirizine 10 mg capsule (Zyrtec) 10 mg PO DAILY PRN allergy sympto ms 12/07/21 Unknown History carvedilol 6.25 mg tablet (Coreg) 6.25 mg PO BID #180 tabs 11/23/23 Unknown Rx aspirin 81 mg tablet,delayed 81 mg PO DAILY 12/17/23 Unknown Hi story release (Adult Low Dose Aspirin) atorvastatin 40 mg tablet 40 mg PO DAILY #90 tabs 02/11/24 U nknown Rx allopurinol 100 mg tablet 100 mg PO BID #180 tabs 05/20/24 U nknown Rx amlodipine 5 mg tablet 5 mg PO DAILY #90 tabs 05/20/24 Un known Rx lisinopril 40 mg tablet 40 mg PO DAILY blood pressure #90 05/20/24 Unknown Rx tabs tadalafil 5 mg tablet 5 mg PO DAILY PRN sexual activity 07/09/24 Unknown History meloxicam 15 mg tablet 15 mg PO QDAY #28 tabs 08/08/24 Un known Rx tamsulosin 0.4 mg capsule (Flomax) 0.4 mg PO QHS #30 caps 08/11/24 Unknown Rx Allergy/AdvReac Type Severity Reaction Status Date / Time No Known Allergies Allergy Verified 08/13/24 13:10 Family History Unknown No problems noted. Mother Alzheimer's dementia Mother Hypertension Father CVA (cerebral vascular accident) Hypertension Surgical History History of colonoscopy History of ear surgery History of tonsillectomy History of radiofrequency ablation procedure for cardiac arrhythmia (03/07/18) Biventricular implantable cardioverter-defibri llator (ICD) in situ (03/07/18) History of left heart catheterization (06/13/17) Social History adopted: No household members: none number of children: 1 current occupational status: retired pets and animals: No Smoking Status: Former smoker quit date: 05/21/09 pack-years: 15 alcohol intake: current alcohol intake frequency: a few times a month substance use type: does not use caffeine: Yes (2-3) Type: coffee frequency: 3-4 times per week seatbelt use: always do you feel safe at home: Yes (more content not included)... [facility] Radiation Oncology Visit [facility] [address] [place] [address] OFFICE VISIT Date of Service: 08/13/24 1305 MR#: [id number] Acct: [id number] Name: AMPARO MCDANIEL Rep #: [id number] : 1960 From: Dandre Carvalho DO Age/Sex: 64/M [place] [facility] [place]: Signed Intake Vital Signs 07/23/24 06:41 08/13/24 13:11 Height 6 ft 3 in 6 ft 3 in Weight: 194 lb 3 oz BMI 24.3 BP 148/85 H Blood Pressure Location Lt brachial Position Sitting Respiration 18 Pulse 60 Pulse Source Monitor Temp 97.8 F Temperature Source Temporal Artery Pulse Oximetry (%) 98 Oxygen Delivery Method room air Intake Visit Reasons: OTV Is patient in pain?: No Allergies No Known Allergies Allergy (Verified 08/13/24 13:10) Medications ???Medication ???Instructions ???Recorded ???Confirmed ???Type vmlippnxeoew-Bq-yvxk -minerals 18 1 tab PO DAILY 12/02/19 08/13/24 H istory mg-0.4 mg tablet (Maximum Daily Multivitamin) cetirizine 10 mg capsule (Zyrtec) 10 mg PO DAILY PRN allergy sympto ms 12/07/21 08/13/24 History carvedilol 6.25 mg tablet (Coreg) 6.25 mg PO BID #180 tabs 11/23/23 08/13/24 Rx aspirin 81 mg tablet,delayed 81 mg PO DAILY 12/17/23 08/13/24 H istory release (Adult Low Dose Aspirin) atorvastatin 40 mg tablet 40 mg PO DAILY #90 tabs 02/11/24 0 08/13/24 Rx allopurinol 100 mg tablet 100 mg PO BID #180 tabs 05/20/24 0 08/13/24 Rx amlodipine 5 mg tablet 5 mg PO DAILY #90 tabs 05/20/24 Rx lisinopril 40 mg tablet 40 mg PO DAILY blood pressure #90 05/20/24 08/13/24 Rx tabs tadalafil 5 mg tablet 5 mg PO DAILY PRN sexual activity 07/09/24 08/13/24 History meloxicam 15 mg tablet 15 mg PO QDAY #28 tabs 08/08/24 Rx tamsulosin 0.4 mg capsule (Flomax) 0.4 mg PO QHS #30 caps 08/11/24 08/13/24 Rx Have you fallen in the past year?: No PFSH PFSH Medical History Arthritis Cancer Prostate disease Heartburn Gastric reflux Former smoker Hypertension History of pacemaker Cardiology follow-up encounter Abnormal prostate biopsy Prostate cancer Localized skin mass, lump, or swelling Erectile dysfunction Flu vaccine need Elevated PSA Preventative health care Blood glucose elevated Normal colonoscopy Wears glasses Gout High cholesterol Health care maintenance Colon cancer screening Right knee pain Paroxysmal atrial fibrillation Non-ischemic cardiomyopathy Essential (primary) hypertension Left bundle branch block (LBBB) Home Medications ???Medication ???Instructions ???Recorded ???Last Taken ???Type plpjpexmupft-Gg-nxlc -minerals 18 1 tab PO DAILY 12/02/19 Unknown Hi story mg-0.4 mg tablet (Maximum Daily Multivitamin) cetirizine 10 mg capsule (Zyrtec) 10 mg PO DAILY PRN allergy sympto ms 12/07/21 Unknown History carvedilol 6.25 mg tablet (Coreg) 6.25 mg PO BID #180 tabs 11/23/23 Unknown Rx aspirin 81 mg tablet,delayed 81 mg PO DAILY 12/17/23 Unknown Hi story release (Adult Low Dose Aspirin) atorvastatin 40 mg tablet 40 mg PO DAILY #90 tabs 02/11/24 U nknown Rx allopurinol 100 mg tablet 100 mg PO BID #180 tabs 05/20/24 U nknown Rx amlodipine 5 mg tablet 5 mg PO DAILY #90 tabs 05/20/24 Un known Rx lisinopril 40 mg tablet 40 mg PO DAILY blood pressure #90 05/20/24 Unknown Rx tabs tadalafil 5 mg tablet 5 mg PO DAILY PRN sexual activity 07/09/24 Unknown History meloxicam 15 mg tablet 15 mg PO QDAY #28 tabs 08/08/24 Un known Rx tamsulosin 0.4 mg capsule (Flomax) 0.4 mg PO QHS #30 caps 08/11/24 Unknown Rx Allergy/AdvReac Type Severity Reaction Status Date / Time No Known Allergies Allergy Verified 08/13/24 13:10 Family History Unknown No problems noted. Mother Alzheimer's dementia Mother Hypertension Father CVA (cerebral vascular accident) Hypertension Surgical History History of colonoscopy History of ear surgery History of tonsillectomy History of radiofrequency ablation procedure for cardiac arrhythmia (03/07/18) Biventricular implantable cardioverter-defibri llator (ICD) in situ (03/07/18) History of left heart catheterization (06/13/17) Social History adopted: No household members: none number of children: 1 current occupational status: retired pets and animals: No Smoking Status: Former smoker quit date: 05/21/09 pack-years: 15 alcohol intake: current alcohol intake frequency: a few times a month substance use type: does not use caffeine: Yes (2-3) Type: coffee frequency: 3-4 times per week seatbelt use: always do you feel safe at home: Yes Diagnosis: (more content not included)... [facility] Radiation Oncology Visiton 0 08-11-2024 Radiation Oncology Visit [facility] [address] [place] [address] OFFICE VISIT Date of Service: 08/11/24 1351 MR#: [id number] Acct: [id number] Name: AMPARO MCDANIEL Rep #: [id number] : 1960 From: Dandre Carvalho DO Age/Sex: 64/M [place] [facility] [place]: Signed Intake Vital Signs 08/08/24 13:18 Height 6 ft 3 in Intake Visit Reasons: Amb Documentation Chief Complaint: right shoulder pain Allergies No Known Allergies Allergy (Verified 08/08/24 07:30) Have you fallen in the past year?: No PFSH PFSH Medical History Arthritis Cancer Prostate disease Heartburn Gastric reflux Former smoker Hypertension History of pacemaker Cardiology follow-up encounter Abnormal prostate biopsy Prostate cancer Localized skin mass, lump, or swelling Erectile dysfunction Flu vaccine need Elevated PSA Preventative health care Blood glucose elevated Normal colonoscopy Wears glasses Gout High cholesterol Health care maintenance Colon cancer screening Right knee pain Paroxysmal atrial fibrillation Non-ischemic cardiomyopathy Essential (primary) hypertension Left bundle branch block (LBBB) Allergy/AdvReac Type Severity Reaction Status Date / Time No Known Allergies Allergy Verified 08/08/24 07:30 Family History Unknown No problems noted. Mother Alzheimer's dementia Mother Hypertension Father CVA (cerebral vascular accident) Hypertension Surgical History History of colonoscopy History of ear surgery History of tonsillectomy History of radiofrequency ablation procedure for cardiac arrhythmia (03/07/18) Biventricular implantable cardioverter-defibri llator (ICD) in situ (03/07/18) History of left heart catheterization (06/13/17) Social History adopted: No household members: none number of children: 1 current occupational status: retired pets and animals: No Smoking Status: Former smoker quit date: 05/21/09 pack-years: 15 alcohol intake: current alcohol intake frequency: a few times a month substance use type: does not use caffeine: Yes (2-3) Type: coffee frequency: 3-4 times per week seatbelt use: always do you feel safe at home: Yes Stereotactic Body Radiation Therapy Procedure - Prostate: DATE OF PROCEDURE: 08/11/2024 RADIATION ONCOLOGIST: Dandre Carvalho D.O., M.S. ASSISTANTS: Radiation Physicist PRE-PROCEDURE DIAGNOSIS(ES): Intermediate risk prostate cancer POST-PROCEDURE DIAGNOSIS(ES): Intermediate risk prostate cancer INDICATIONS FOR PROCEDURE: The patient has clinically localized prostate cancer and has chosen to proceed with definitive Stereotactic Body Radiation Therapy (SBRT). PROCEDURE PERFORMED: Stereotactic body radiation therapy to the prostate CONSENT: Informed consent was obtained prior to the procedure. Procedure risks, benefits, alternatives and expected outcomes were discussed with the patient. All options have been reviewed and consent had been obtained prior to the procedure. Consent(s) were scanned into the electronic medical record. UNIVERSAL PROTOCOL / TIMEOUT: Pre-procedure verification is complete: patient verified and consents confirmed, procedure site was identified, timeout was called before the start of the procedure. ANESTHESIA: None RADIATION DOSE GIVEN: 725 cGy FRACTION: 3 of 5 CUMULATIVE DOSE: 2175 cGy PLANNED TOTAL DOSE: 3625 cGy DETAILS OF PROCEDURE: Amparo Mcdaniel is a 63 year-old male who presented to our clinic today for the third fraction of stereotactic body radiation therapy for clinically localized prostate cancer. The patient reports no interval symptoms or problems since the last evaluation in our department. The patient was aligned in the vac bag on the treatment table. The therapists completed patient positioning. The treatment team then exited the treatment room. After verification of treatment parameters, a cone beam CT scan was obtained and aligned to fiducials. After accurate localization, the treatment proceeded. Treatment was delivered with multiarc VMAT radiation therapy utilizing 6 MV FFF beams. A dose of 725 cGy was delivered. The patient tolerated the procedure well. There were no acute complications, no blood loss, and no specimens were removed. CONDITION: The patient tolerated the procedure well and was in stable condition. ATTESTATION: I was present for all critical portions of the procedure including time out, CBCT and treatment delivery. PLAN: The patient will continue with stereotactic body radiation therapy that will be given 2-3 times per week. A total of 3625 cGy in 5 fractions is planned. S (more content not included)... [facility] Internal Medicine Office Vis it[facility]rant 08-08-2024 Internal Medicine Office Visit [facility] [address] [place] [address] [place] [address] OFFICE VISIT Date of Service: 08/08/24 MR#: [id number] Acct: [id number] Name: AMPARO MCDANIEL Rep #: [id number] : 1960 Provider: GALLO Obando Age/Sex: 64/M Location[place] [facility] [place] Status: Signed Intake Vital Signs 07/23/24 06:41 08/06/24 14:09 Height 6 ft 3 in 6 ft 3 in Weight: 194 lb BMI 24.2 BP 134/82 H Blood Pressure Location Lt brachial Position Sitting Respiration 14 Pulse 60 Pulse Source Monitor Temp 97.7 F L Temp Source Temporal Pulse Oximetry (%) 97 Oxygen Delivery Method room air Intake Visit Reasons: R shoulder pain Chief Complaint: right shoulder pain Chief Of Planning Required: No Accompanied by: Self Is patient in pain?: Yes Pain scale (1-10): 6 Allergies No Known Allergies Allergy (Verified 08/08/24 07:30) Medications ???Medication ???Instructions ???Recorded ???Confirmed ???Type xfdfhiuwzequ-Ks-njex -minerals 18 1 tab PO DAILY 12/02/19 08/08/24 H istory mg-0.4 mg tablet (Maximum Daily Multivitamin) cetirizine 10 mg capsule (Zyrtec) 10 mg PO DAILY PRN allergy sympto ms 12/07/21 08/08/24 History carvedilol 6.25 mg tablet (Coreg) 6.25 mg PO BID #180 tabs 11/23/23 08/08/24 Rx aspirin 81 mg tablet,delayed 81 mg PO DAILY 12/17/23 08/08/24 H istory release (Adult Low Dose Aspirin) atorvastatin 40 mg tablet 40 mg PO DAILY #90 tabs 02/11/24 0 08/08/24 Rx allopurinol 100 mg tablet 100 mg PO BID #180 tabs 05/20/24 0 08/08/24 Rx amlodipine 5 mg tablet 5 mg PO DAILY #90 tabs 05/20/24 Rx lisinopril 40 mg tablet 40 mg PO DAILY blood pressure #90 05/20/24 08/08/24 Rx tabs tadalafil 5 mg tablet 5 mg PO DAILY PRN sexual activity 07/09/24 08/08/24 History meloxicam 15 mg tablet 15 mg PO QDAY #28 tabs 08/08/24 Rx Have you fallen in the past year?: No PFSH Medical History Arthritis Cancer Prostate disease Heartburn Gastric reflux Former smoker Hypertension History of pacemaker Cardiology follow-up encounter Abnormal prostate biopsy Prostate cancer Localized skin mass, lump, or swelling Erectile dysfunction Flu vaccine need Elevated PSA Preventative health care Blood glucose elevated Normal colonoscopy Wears glasses Gout High cholesterol Health care maintenance Colon cancer screening Right knee pain Paroxysmal atrial fibrillation Non-ischemic cardiomyopathy Essential (primary) hypertension Left bundle branch block (LBBB) Surgical History History of colonoscopy History of ear surgery History of tonsillectomy History of radiofrequency ablation procedure for cardiac arrhythmia (03/07/18) Biventricular implantable cardioverter-defibri llator (ICD) in situ (03/07/18) History of left heart catheterization (06/13/17) Family History Unknown No problems noted. Mother Alzheimer's dementia Mother Hypertension Father CVA (cerebral vascular accident) Hypertension Social History adopted: No household members: none number of children: 1 current occupational status: retired pets and animals: No Smoking Status: Former smoker quit date: 05/21/09 pack-years: 15 alcohol intake: current alcohol intake frequency: a few times a month substance use type: does not use caffeine: Yes (2-3) Type: coffee frequency: 3-4 times per week seatbelt use: always do you feel safe at home: Yes HPI HPI Chief Complaint: right shoulder pain Details: AMPARO MCDANIEL, is a 64 M who presents to the office today for some right shoulder pains. Patient states that he always had a dull ache in both of his shoulder he thought from sleeping on his sides often. He states that he played golf the end of last week and he states that since then he has noticed some discomfort with reaching across his body. There was no acute onset or inciting incident but again golf was new in that it has been several months. He states that he has been trying to rest it a little the past week. He tried a hot pack and did some tylenol a little. He denies anuy previous shoulder issues in terms of injury. ROS Const Constitutional: No body ache, chills, excessive sweating, fatigue, fever(s), frequent falls, headache(s), snoring, weakness, sleep problems or change in appetite Eyes Eyes: No blurry vision, change in vision, dry eyes, floaters, visual disturbances, eye pain or Light sensitivity ENT ENT: No abnormal hearing, ear or mastoid pain, tinnitus, balance problems, nosebleed/epistaxis, nasal congestion, headache(s), neck pain or sore throat Resp Respiratory: No cough, excessive phlegm produ (more content not included)... [facility] Radiation Oncology Visiton 0 08-08-2024 Radiation Oncology Visit [facility] [address] [place] [address] OFFICE VISIT Date of Service: 08/08/24 1317 MR#: [id number] Acct: [id number] Name: AMPARO MCDANIEL Rep #: [id number] : 1960 From: Dandre Carvalho DO Age/Sex: 64/M [place] [facility] [place]: Signed Intake Vital Signs 08/06/24 14:09 Height 6 ft 3 in Weight: 194 lb BMI 24.2 BP 134/82 H Blood Pressure Location Lt brachial Position Sitting Respiration 14 Pulse 60 Pulse Source Monitor Temp 97.7 F L Pulse Oximetry (%) 97 Oxygen Delivery Method room air Intake Visit Reasons: Amb Documentation Chief Complaint: right shoulder pain Allergies No Known Allergies Allergy (Verified 08/08/24 07:30) Have you fallen in the past year?: No PFSH PFSH Medical History Arthritis Cancer Prostate disease Heartburn Gastric reflux Former smoker Hypertension History of pacemaker Cardiology follow-up encounter Abnormal prostate biopsy Prostate cancer Localized skin mass, lump, or swelling Erectile dysfunction Flu vaccine need Elevated PSA Preventative health care Blood glucose elevated Normal colonoscopy Wears glasses Gout High cholesterol Health care maintenance Colon cancer screening Right knee pain Paroxysmal atrial fibrillation Non-ischemic cardiomyopathy Essential (primary) hypertension Left bundle branch block (LBBB) Allergy/AdvReac Type Severity Reaction Status Date / Time No Known Allergies Allergy Verified 08/08/24 07:30 Family History Unknown No problems noted. Mother Alzheimer's dementia Mother Hypertension Father CVA (cerebral vascular accident) Hypertension Surgical History History of colonoscopy History of ear surgery History of tonsillectomy History of radiofrequency ablation procedure for cardiac arrhythmia (03/07/18) Biventricular implantable cardioverter-defibri llator (ICD) in situ (03/07/18) History of left heart catheterization (06/13/17) Social History adopted: No household members: none number of children: 1 current occupational status: retired pets and animals: No Smoking Status: Former smoker quit date: 05/21/09 pack-years: 15 alcohol intake: current alcohol intake frequency: a few times a month substance use type: does not use caffeine: Yes (2-3) Type: coffee frequency: 3-4 times per week seatbelt use: always do you feel safe at home: Yes Stereotactic Body Radiation Therapy Procedure - Prostate: DATE OF PROCEDURE: 08/08/2024 RADIATION ONCOLOGIST: Dandre Carvalho D.O., M.S. ASSISTANTS: Radiation Physicist PRE-PROCEDURE DIAGNOSIS(ES): Intermediate risk prostate cancer POST-PROCEDURE DIAGNOSIS(ES): Intermediate risk prostate cancer INDICATIONS FOR PROCEDURE: The patient has clinically localized prostate cancer and has chosen to proceed with definitive Stereotactic Body Radiation Therapy (SBRT). PROCEDURE PERFORMED: Stereotactic body radiation therapy to the prostate CONSENT: Informed consent was obtained prior to the procedure. Procedure risks, benefits, alternatives and expected outcomes were discussed with the patient. All options have been reviewed and consent had been obtained prior to the procedure. Consent(s) were scanned into the electronic medical record. UNIVERSAL PROTOCOL / TIMEOUT: Pre-procedure verification is complete: patient verified and consents confirmed, procedure site was identified, timeout was called before the start of the procedure. ANESTHESIA: None RADIATION DOSE GIVEN: 725 cGy FRACTION: 2 of 5 CUMULATIVE DOSE: 1450 cGy PLANNED TOTAL DOSE: 3625 cGy DETAILS OF PROCEDURE: Amparo Mcdaniel is a 63 year-old male who presented to our clinic today for the second fraction of stereotactic body radiation therapy for clinically localized prostate cancer. The patient reports no interval symptoms or problems since the last evaluation in our department. The patient was aligned in the vac bag on the treatment table. The therapists completed patient positioning. The treatment team then exited the treatment room. After verification of treatment parameters, a cone beam CT scan was obtained and aligned to fiducials. After accurate localization, the treatment proceeded. Treatment was delivered with multiarc VMAT radiation therapy utilizing 6 MV FFF beams. A dose of 725 cGy was delivered. The patient tolerated the procedure well. There were no acute complications, no blood loss, and no specimens were removed. CONDITION: The patient tolerated the procedure well and was in stable condition. ATTESTATION: I was present for all critical po (more content not included)... [facility] Radiation Oncology Visiton 0 08-06-2024 Radiation Oncology Visit [facility] [address] [place] [address] OFFICE VISIT Date of Service: 08/06/24 1408 MR#: [id number] Acct: [id number] Name: AMPARO MCDANIEL Rep #: [id number] : 1960 From: Dandre Carvalho DO Age/Sex: 63/M [place] [facility] [place] Signed Intake Vital Signs 07/23/24 06:41 Height 6 ft 3 in Intake Visit Reasons: Amb Documentation Chief Complaint: FLU SHOT Allergies No Known Allergies Allergy (Verified 07/23/24 06:35) Have you fallen in the past year?: No PFSH PFSH Medical History Arthritis Cancer Prostate disease Heartburn Gastric reflux Former smoker Hypertension History of pacemaker Cardiology follow-up encounter Abnormal prostate biopsy Prostate cancer Localized skin mass, lump, or swelling Erectile dysfunction Flu vaccine need Elevated PSA Preventative health care Blood glucose elevated Normal colonoscopy Wears glasses Gout High cholesterol Health care maintenance Colon cancer screening Right knee pain Paroxysmal atrial fibrillation Non-ischemic cardiomyopathy Essential (primary) hypertension Left bundle branch block (LBBB) Allergy/AdvReac Type Severity Reaction Status Date / Time No Known Allergies Allergy Verified 07/23/24 06:35 Family History Unknown No problems noted. Mother Alzheimer's dementia Mother Hypertension Father CVA (cerebral vascular accident) Hypertension Surgical History History of colonoscopy History of ear surgery History of tonsillectomy History of radiofrequency ablation procedure for cardiac arrhythmia (03/07/18) Biventricular implantable cardioverter-defibri llator (ICD) in situ (03/07/18) History of left heart catheterization (06/13/17) Social History adopted: No household members: none number of children: 1 current occupational status: retired pets and animals: No Smoking Status: Former smoker quit date: 05/21/09 pack-years: 15 alcohol intake: current alcohol intake frequency: a few times a month substance use type: does not use caffeine: Yes (2-3) Type: coffee frequency: 3-4 times per week seatbelt use: always do you feel safe at home: Yes Stereotactic Body Radiation Therapy Procedure - Prostate: DATE OF PROCEDURE: 08/06/2024 RADIATION ONCOLOGIST: Dandre Carvalho D.O., M.S. ASSISTANTS: Radiation Physicist PRE-PROCEDURE DIAGNOSIS(ES): Intermediate risk prostate cancer POST-PROCEDURE DIAGNOSIS(ES): Intermediate risk prostate cancer INDICATIONS FOR PROCEDURE: The patient has clinically localized prostate cancer and has chosen to proceed with definitive Stereotactic Body Radiation Therapy (SBRT). PROCEDURE PERFORMED: Stereotactic body radiation therapy to the prostate CONSENT: Informed consent was obtained prior to the procedure. Procedure risks, benefits, alternatives and expected outcomes were discussed with the patient. All options have been reviewed and consent had been obtained prior to the procedure. Consent(s) were scanned into the electronic medical record. UNIVERSAL PROTOCOL / TIMEOUT: Pre-procedure verification is complete: patient verified and consents confirmed, procedure site was identified, timeout was called before the start of the procedure. ANESTHESIA: None RADIATION DOSE GIVEN: 725 cGy FRACTION: 1 of 5 CUMULATIVE DOSE: 725 cGy PLANNED TOTAL DOSE: 3625 cGy DETAILS OF PROCEDURE: Amparo Mcdaniel is a 63 year-old male who presented to our clinic today for the first fraction of stereotactic body radiation therapy for clinically localized prostate cancer. The patient reports no interval symptoms or problems since the last evaluation in our department. The patient was aligned in the vac bag on the treatment table. The therapists completed patient positioning. The treatment team then exited the treatment room. After verification of treatment parameters, a cone beam CT scan was obtained and aligned to fiducials. After accurate localization, the treatment proceeded. Treatment was delivered with multiarc VMAT radiation therapy utilizing 6 MV FFF beams. A dose of 725 cGy was delivered. The patient tolerated the procedure well. There were no acute complications, no blood loss, and no specimens were removed. CONDITION: The patient tolerated the procedure well and was in stable condition. ATTESTATION: I was present for all critical portions of the procedure including time out, CBCT and treatment delivery. PLAN: The patient will continue with stereotactic body radiation therapy that will be given 2-3 times per week. A total of 3625 cGy in 5 fractions is planned. Dandre Alonzo (more content not included)... [facility] Magnetic resonance imaging r eportOrdered By: Marian Sevilla on 08-01-2024 Study report [facility] Imaging Services [address] [place], [place] [address] Pelvis W/WO Contrast MR#: [id number] Acct: [id number] Name: AMPARO MCDANIEL Rep #: [id number] : 1960 M 63 From: Juana Sevilla MD PCP: Dr. Patricia Nguyen MD Status: R EG CLI Study:Pelvis W/WO Contrast Date of Exam: 07/30/24 Exam# [id number] Ordering Dr: Dandre Carvalho DO PROCEDURE: PELVIS W/WO CONTRAST (MRIPELWW), 07/30/2024 REASON FOR EXAM: PLANNING FOR XRT, EVAL EXTENT OF DISEASE TECHNIQUE: Multisequence multiplanar MRI pelvis was performed with and without IV contrast. CONTRAST: 17 mL Clariscan. COMPARISON: None FINDINGS: Note dynamic postcontrast imaging was not performed; an alternative PI-RADS algorithm was therefore utilized. Limitation related to prominent T1 bright presumed postprocedural blood products within the bilateral posterior peripheral zones, particularly in the absence of dynamic postcontrast and/or subtraction sequences. Variable overall mild motion limitation Prostate size: 3.5 x 5.5 x 4.3 cm, estimated volume 43 mL. Spacer gel present with good separation of the anterior rectum and posterior prostate at the level of the midgland. Closest margins at the level of the base roughly 3 mm and apex roughly 4 mm. Fiducial markers. Transition zone: PI-RADS 2 findings. Peripheral Zone: Limitation related to presumed postprocedural blood products asabove. Additional background changes of likely prostatitis (PI-RADS 2). Additional lesions as below: *Lesion 1: Right mid posterior peripheral zone, obscured by immediately adjacentblood products, roughly 1.2 cm (series 9, image 20-21). Possible hemorrhage exclusion sign. *T2 score: Partially obscured by blood products, difficult to characterize; feltthe best considered T2 score 4 *DWI score: Difficult to characterize given limitations; felt the best considered DWI score 4 *DCE: N/A. *Overall PI-RADS: Difficult to categorize given limitations, felt the best considered PI-RADS 4. *Extracapsular extension:No gross extracapsular extension, however, there is capsular abutment greater than 1 cm which increases the risk of occult early/microscopic extracapsular extension. Note that this includes the region of the right neurovascular bundle, which appears grossly unremarkable. *Lesion 2: Left mid anterior peripheral zone, 0.8 cm (series 9, image 21). *T2 score: 4 *DWI score: 4 *DCE: N/A. *Overall PI-RADS: 4. *Extracapsular extension:Capsular abutment without gross extracapsular extension. Neurovascular bundles: As above. Seminal vesicles: Unremarkable. Bladder: Unremarkable. Lymph nodes: Unremarkable. Bones: No destructive or frankly suspicious bony lesions identified. Other: None. MRI/Pelvis W/WO Contrast IMPRESSION: 1. Exam limited by fairly considerable peripheral zone presumed postprocedural blood products. Consider a follow-up exam after resolution for improved delineation. 2. Spacer gel present with good separation of the anterior rectum and posterior prostate at the level of the midgland. Closest margins at the level of the base roughly 3 mm and apex roughly 4 mm. 3. 1.2 cm suspected lesion in the right mid posterior peripheral zone is partially obscured and difficult to categorize given presumed postprocedural blood products as above, felt the best considered PI-RADS 4 (lesion 1). 4. 0.8 cm PI-RADS 4 lesion in the left mid anterior peripheral zone (lesion 2). 5. No gross extracapsular extension, however, there is capsular abutment by bothlesions and for greater than 1 cm by lesion 1 which increases the risk of occult early/microscopic extracapsular extension. Note that this includes the region of the right neurovascular bundle, which appears grossly unremarkable. 6. No overt pelvic lymphadenopathy. 7. Additional description as above. Reading Location: [id number] CC: Dr. Patricia Nguyen MD; Dr. Dandre Carvalho, DO ~ Campground Attendant: Signed [facility] Pacemaker Checkon 07-30-2024 Pacemaker Check [facility] [place] [address] Pacemaker Check Date of Service: 07/30/241819 MR#: [id number] Acct: [id number] Name: AMPARO MCDANIEL Rep #: [id number] : 1960 From: Genny Edgar Age/Sex: 63/M Location[place] [facility] [place] Status: Signed with Addenda ADDENDUM by Genny Edgar on 07/30/24 at 1822 Billing Codes MRI: 05866 ICD (programming after MRI) 07/30/241821 Date Genny Edgar cc: * Signed Billing Codes MRI: 52398 ICD (programming prior to MRI) Assessment and Plan Assessment and Plan (1) Biventricular implantable cardioverter-defibri llator (ICD) in situ: Status: Chronic (2) Paroxysmal atrial fibrillation: Status: Chronic (3) Non-ischemic cardiomyopathy: Status: Chronic (4) Left bundle branch block (LBBB): Status: Chronic 07/30/241820 Date Genny Belcherigner Signature: Date (if applicable) CC: [facility] Pelvis W/WO Contraston 07-30 Pelvis W/WO Contrast [facility] Imaging Services [address] [place] [address] Pelvis W/WO Contrast MR#: [id number] Acct: [id number] Name: AMPARO MCDANIEL Rep #: [id number] : 1960 M 63 From: Marian Sevilla MD PCP: Dr. Patricia Nguyen MD Status: REG CLI Study: Pelvis W/WO Contrast Date of Exam: 07/30/24 Exam# [id number] Ordering Dr: Dandre Carvalho DO PROCEDURE: PELVIS W/WO CONTRAST (MRIPELWW), 07/30/2024 REASON FOR EXAM: PLANNING FOR XRT, EVAL EXTENT OF DISEASE TECHNIQUE: Multisequence multiplanar MRI pelvis was performed with and without IV contrast. CONTRAST: 17 mL Clariscan. COMPARISON: None FINDINGS: Note dynamic postcontrast imaging was not performed; an alternative PI-RADS algorithm was therefore utilized. Limitation related to prominent T1 bright presumed postprocedural blood products within the bilateral posterior peripheral zones, particularly in the absence of dynamic postcontrast and/or subtraction sequences. Variable overall mild motion limitation Prostate size: 3.5 x 5.5 x 4.3 cm, estimated volume 43 mL. Spacer gel present with good separation of the anterior rectum and posterior prostate at the level of the midgland. Closest margins at the level of the base roughly 3 mm and apex roughly 4 mm. Fiducial markers. Transition zone: PI-RADS 2 findings. Peripheral Zone: Limitation related to presumed postprocedural blood products as above. Additional background changes of likely prostatitis (PI-RADS 2). Additional lesions as below: *Lesion 1: Right mid posterior peripheral zone, obscured by immediately adjacent blood products, roughly 1.2 cm (series 9, image 20-21). Possible hemorrhage exclusion sign. *T2 score: Partially obscured by blood products, difficult to characterize; felt the best considered T2 score 4 *DWI score: Difficult to characterize given limitations; felt the best considered DWI score 4 *DCE: N/A. *Overall PI-RADS: Difficult to categorize given limitations, felt the best considered PI-RADS 4. *Extracapsular extension:No gross extracapsular extension, however, there is capsular abutment greater than 1 cm which increases the risk of occult early/microscopic extracapsular extension. Note that this includes the region of the right neurovascular bundle, which appears grossly unremarkable. *Lesion 2: Left mid anterior peripheral zone, 0.8 cm (series 9, image 21). *T2 score: 4 *DWI score: 4 *DCE: N/A. *Overall PI-RADS: 4. *Extracapsular extension:Capsular abutment without gross extracapsular extension. Neurovascular bundles: As above. Seminal vesicles: Unremarkable. Bladder: Unremarkable. Lymph nodes: Unremarkable. Bones: No destructive or frankly suspicious bony lesions identified. Other: None. MRI/Pelvis W/WO Contrast IMPRESSION: 1. Exam limited by fairly considerable peripheral zone presumed postprocedural blood products. Consider a follow-up exam after resolution for improved delineation. 2. Spacer gel present with good separation of the anterior rectum and posterior prostate at the level of the midgland. Closest margins at the level of the base roughly 3 mm and apex roughly 4 mm. 3. 1.2 cm suspected lesion in the right mid posterior peripheral zone is partially obscured and difficult to categorize given presumed postprocedural blood products as above, felt the best considered PI-RADS 4 (lesion 1). 4. 0.8 cm PI-RADS 4 lesion in the left mid anterior peripheral zone (lesion 2). 5. No gross extracapsular extension, however, there is capsular abutment by both lesions and for greater than 1 cm by lesion 1 which increases the risk of occult early/microscopic extracapsular extension. Note that this includes the region of the right neurovascular bundle, which appears grossly unremarkable. 6. No overt pelvic lymphadenopathy. 7. Additional description as above. Reading Location: [id number] CC: Dr. Patricia Nguyen MD; Dr. Dandre Carvalho DO Campground Attendant: Signed [facility] Discharge Instructionon Discharge Instruction [facility] Medical Records Department [address] [place] [address] Instructions for Home/Discharge Instructions 07/23/24 0740 MR#: [id number] Acct: [id number] Name: AMPARO MCDANIEL Rep #: [id number] : 1960 63 From: James Saldaña MD PCP: Dr. Patricia Nguyen MD Status:REG [facility] [place] Discharge Instructions Diet Discharge Diet: No restrictions DC O2, CPAP, BIPAP needs Home O2 Discharge instructions: No Dressing / Incision Discharge Activity: Return to Normal Activity and May Not Drive (while taking narcotic pain medications.) Dressing / Incision Call your doctor if you observe: Fever of 101 or Higher Follow Up Care Please Follow Up With: James Saldaña MD When: Call [phone] for an appointment Test Results: Test results from this visit will be discussed in further detail at your follow-up appointment, if applicable. Discharge Plan Admission Attending Provider: James Saldaña Primary Care Provider: Patricia Nguyen Instructions Print Language: Spanish Discharge Orders/Prescriptions Prescriptions: No Action Maximum Daily Multivitamin 18-0.4 mg tablet 1 tab PO DAILY Zyrtec 10 mg capsule 10 mg PO DAILY PRN (Reason: allergy symptoms) aspirin [Adult Low Dose Aspirin] 81 mg tablet,delayed release (DR/EC) 81 mg PO DAILY tadalafil 5 mg tablet 5 mg PO DAILY PRN (Reason: sexual activity) carvedilol [Coreg] 6.25 mg tablet 6.25 mg PO BID Qty: 180 3RF Rx Instructions: give with food (meal/snack) atorvastatin 40 mg tablet 40 mg PO DAILY Qty: 90 2RF amlodipine 5 mg tablet 5 mg PO DAILY Qty: 90 3RF lisinopril 40 mg tablet 40 mg PO DAILY Qty: 90 3RF allopurinol 100 mg tablet 100 mg PO BID Qty: 180 3RF Referrals / Follow Up: Patricia Nguyen MD [Primary Care Provider] - Disposition Disposition (needs filled in before D/C Order can be placed): Home, Self Care 07/23/24 0740 James Saldaña MD CC: Dr. Patricia Nguyen MD Signed [facility] MR/POSTOP.[facility] 07-23-2024 MR/POSTOP.[facility] Medical Records Department [address] [place] [address] Anesthesia Postop Eval I 07/23/24 0808 MR#: [id number] Acct: [id number] Name: AMPARO MCDANIEL Rep #: [id number] : 1960 63 From: Myron Chung CRNA PCP: Dr. Patricia Nguyen MD Status:REG SDC Y Race: C Location: [place] [address] Anesthesia: Postop Eval I Current Vital Signs Temperature: 97.6 F Pulse Rate: 60 Blood Pressure: 115/65 Respiratory Rate: 12 Pulse Ox: 94 Oxygen Delivery Method: Nasal Cannula Oxygen Flow Rate (L/min): 4 Assessment Airway patent: Yes Spontaneous unlabored respirations: Yes Mental status: Asleep nausea: No Vomiting: No Anesthesia Complication: No Fluid Hydration Crystalloid volume administer (ml): 700 Total IV fluid infused: 700 Progress Note Anesthesia document: Postop Eval 1 completed: Yes 07/23/24 0809 Date Myron Chung MAGNETIC PROSPECTOR Cosigner Signature: Date CC: Signed [facility] MR/[id number] 07-23-2024 MR/POSTOPAN2 [facility] Medical Records Department [address] [place] [address] Anesthesia Postop Eval II 07/23/24812 MR#: [id number] Acct: [id number] Name: AMPARO MCDANIEL Rep #: [id number] : 1960 63 From: Romulo Hernandez MD PCP: Dr. Patricia Nguyen MD Status:REG [facility] [place] Y Race: C Location: [place] [address] Anesthesia Postop Eval I Sum Postop Eval Completion status Anesthesia document: Postop Eval 1 completed: Yes Anesthesia Postop Eval I Summary Anesthesia Postop Eval I Summary: Anesthesia Postop Eval I: Assessment Summary Airway patent Yes 07/23/24 08:09 [email or web address] Spontaneous unlabored Yes 07/23/24 08:09 MAGNETIC [email or web address] respirations Mental status Asleep 07/23/24 08:09 MAGNETIC [email or web address] nausea No 07/23/24 08:09 MAGNETIC [email or web address] Vomiting No 07/23/24 08:09 MAGNETIC [email or web address] Anesthesia Postop Eval I: Fluid Summary Crystalloid volume administer 700 07/23/24 08:09 MAGNETIC [email or web address] (ml) Colloids volume administered ( ml) Blood Product volume administered (ml) Total IV fluid infused 700 07/23/24 08:09 [email or web address] Anesthesia Postop Eval I: Summary Notes Anesthesia Complication No 07/23/24 08:09 [email or web address] Anesthesia Complication Comment: Post-operative progress note Anesthesia: Postop Eval II Evaluation Mental status: Awake Pain Level: 0 nausea: No Vomiting: No 07/23/24812 Date Romulo Weeman MD Cosigner Signature: Date CC: Signed [facility] Operative Reporton 5 Operative Report [facility] Medical Records Department [address] [place] [address] Operative Report 07/23/24 0740 MR#: [id number] Acct: [id number] Name: AMPARO MCDANIEL Rep #: [id number] : 1960 63 From: James Saldaña MD PCP: Dr. Patricia Nguyen MD Status:[facility] Location: [place] [address] Operative Report (Standard) Operative Information Date of Procedure: 07/23/24 Pre-Operative Diagnosis: Prostate cancer Post-Operative Diagnosis: The same Surgery/Procedure Performed: Gold markers and spacer gel global risk management director: No Type of Anesthesia: General RN Documented Start/Stop Times: Operation Date: 07/23/24 07:30 Case Time Into Pre-Op 07/23/24 06:16 Out of Pre-Op 07/23/24 07:28 Procedure Start Time: 07:43 Procedure Stop Time: 07:54 Select all DRAINS/GRAFTS/IMPLAN TS that apply: None Estimated Blood Loss: 0 Specimen collected: No Description of surgery: In the preoperative area I reviewed with the patient how the procedure is done we talked about the risk of the procedure including the risk of infection, bleeding, migration of the spacer gel, the patient is planning to have radiation to the prostate he understands that the spacer gel has demonstrated benefit in reducing the risk of toxicity from the ration radiation to the rectum but there is no guarantees that this spacer gel will prevent any serious complications or toxicity to the rectum or bowels. After reviewing this with the patient and his family organ to proceed with placement of a spacer gel matrix. The penis and testicles were prepped and draped in usual sterile fashion, ultrasound probe was placed into the rectum and biplanar ultrasound was performed on the prostate. Identified the base mid and apex of the prostate identified the transition zone prostate. Then using a needle the first linemarker was placed into the right base of the prostate, the second linemarker was placed in the left base of the prostate, and the third core marker was placed in the right apex of the prostate after all 3 markers were placed the placement of the markers were confirmed by ultrasonography. Patient was taken back to the operating room after smooth induction of anesthesia he was placed supine on the table. The genitals and perineum were prepped and draped in usual sterile fashion. I then introduced a biplanar ultrasound probe into the rectum and performed ultrasonography and identified the Denonvilliers' fascia the prostate mid base and apex and seminal vesicles. The spacer gel mix was then prepared on the back table per manufactures instruction. Under ultrasound guidance in the midline perineum a bevel needle down we advanced through the perineum below the prostate into the space of Denonvilliers' fascia. This space which could be identified by ultrasound with a bright white layer between the prostate and the rectum. I then injected a puff of normal saline to identify the space further. After I confirmed that the needle was in the correct space in the mid prostate and the space of Denonvilliers' fascia between the rectum and the prostate. Then over the course of 15 seconds the gel matrix was injected slowly there was nice separation between the prostate and the rectum at the gel matrix was injected. The position of the gel matrix was confirmed by ultrasound. Then the injection needle was removed intact. Patient's perineum was cleaned patient was taken out of stirrups and then taken back to the PACU in good condition. Surgical Findings: ; Complications Complications: No Admit VTE Documentation VTE Present on Admission: No VTE Mechan Device Prophylaxis: SCD's VTE Pharm Prophylaxis ordered?: No 07/23/24 0754 Cosigner Signature (if applicable): CC: Dr. Patricia Nguyen MD; Dr. James Saldaña MD Signed [facility] MR/PAT.TIMMYon 07-09-2024 MR/PAT.[facility] Medical Records Department [address] [place] [address] PAT - Anesthesia 07/09/242043 MR#: [id number] Acct: [id number] Name: AMPARO MCDANIEL Rep #: [id number] : 1960 63 From: Vinay Hodge MD PCP: Dr. 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 When Was Last Pacemaker Check QUESTION #4 FULL TEXT: You/Your Family Experience fever (hyperthermia) with Anesthesia Last Oral Intake Last Oral intake: Last Oral Intake NPO since Meds taken in AM with sips of water? 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 supervisor Female No 07/09/24 13:08 HX of Motion Sickness No 07/09/24 13:08 HX of N/V After Surgery No 07/09/24 13:08 Non-Smoker Yes 07/09/24 13:08 Duration of Surgery greater No 07/09/24 13:08 than 60 minutes Number of Risk Factors 1 07/09/24 13:08 PONV Score Low Risk 07/09/24 13:08 Height Weight Height Weight: Anesthesia: Height Weight Height 6 ft 3 in 05/20/24 10:01 Respiratory Assessment Respiratory Assessment - rose grading supervisor: Respiratory Tract Infection Hx - rose grading supervisor Hx Respiratory Tract Infection No 07/09/24 13:08 STOP Sleep Apnea STOP Sleep Apnea - rose grading supervisor: STOP Sleep Apnea - rose grading supervisor Hx Hypertension Yes: CONTROLLED WITH MED 07/09/24 13:08 Hx Sleep Apnea No 07/09/24 13:08 CPAP BIPAP Do you snore loudly (louder No 07/09/24 13:08 than talking or can be heard Do you often feel tired/ No 07/09/24 13:08 fatigued/ sleepy during daytime? Has anyone observed you stop No 07/09/24 13:08 breathing during sleep? STOP Results Negative 07/09/24 13:08 QUESTION #5 FULL TEXT : Do you snore loudly (louder than talking or can be heard through closed doors)? Tobacco Use History Tobacco Use History - rose grading supervisor: Tobacco Use History - rose grading supervisor Tobacco Use Smoking Status Former smoker 07/09/24 13:08 Hx Tobacco Use Yes 07/09/24 13:08 Years Smoking Packs Smoked per Day Smoking Cessation Date was No - quit smoking greater 07/09/24 13:08 within the last 15 years than 15 years ago Hx Smoking Cessation Date 05/21/04 07/09/24 13:08 Hx Smoking Cessation Counseling Hematologic Medial History Hematologic Hx - rose grading supervisor: Hematologic Medical Hx - clinical documentation consultant Hx of Blood Transfusion No 07/09/24 13:08 Hx of Transfusion in last 3 No 07/09/24 13:08 Months Date of Last Transfusion (if within last 3 months) Ever experience any problems No 07/09/24 13:08 with transfusion(s)? Specify any problems Hx of Preganancy in last 3 N/A 07/09/24 13:08 Months Nurse Filling Out Transfusion NBUCHER 07/09/24 13:08 Questions: Date: 07/09/24 07/09/24 13:08 Time: 13:09 07/09/24 13:08 Patient unable to answer at this time (ie. confused, unrespo /Reproducti on History /Reproducti ve History - rose grading supervisor: /Reproducti ve Hx- rose grading supervisor Hx Now No 07/09/24 13:08 Gestational Age (in weeks): EDC: Hx Hx Para Hx Section SAB No 07/09/24 13:08 PFSH Medical History (Updated 07/09/24 @ 13:14 by Leela Romo) Arthritis Cancer Prostate disease Heartburn Gastric reflux Former smoker Hypertension History of pacemaker Cardiology follow-up encounter Abnormal prostate biopsy Prostate cancer Localized skin mass, lump, or swelling Erectile dysfunction Flu vaccine need Elevated PSA Preventative health care Blood glucose elevated Normal colonoscopy Wears glasses Gout High cholesterol Health care maintenance Colon cancer screening Right knee pain Paroxysmal atrial fibrillation Non-ischemic cardiomyopathy Essential (primary) hypertension Left bundle branch block (LBBB) Home Medications ???Medication ???Instructions ???Recorded ???Last Taken ???Type wbutkziojbcw-Tg-omuh -minerals 18 1 tab PO DAILY 12/02/19 Unknown Hi story mg-0.4 mg tablet (Maximum Daily Multivitamin) (more content not included)... [facility] Cardiology Visit Reporton Cardiology Visit Report [facility] [address] [place] [address] OFFICE VISIT Date of Service: 06/18/24 MR#: [id number] Acct: [id number] Name: AMPARO MCDANIEL Rep #: [id number] : 1960 Provider: EWA hameed Age/Sex: 63/M Location: [facility] Status: Signed HPI HPI History of Present Illness Details: This is a 63-year-old gentleman who presents here today for a cardiovascular follow-up.??? He has a history of nonischemic cardiomyopathy, paroxysmal atrial flutter, left bundle branch block.??? He also has a WARDROBE MISTRESS ICD device that was placed at [facility] in 2018. At that time as well he underwent cryoablation and PVI of his atrial flutter and fibrillation. Last echocardiogram demonstrated an ejection fraction of 50% with mild global hypokinesis and mild concentric left ventricular hypertrophy. He denies chest, arm, jaw, or neck discomfort. He denies palpitations. He denies bilateral lower extremity edema. He denies claudication. He denies shortness of breath with activity, shortness of breath at rest, orthopnea, or PND. He denies chronic cough. He denies significant, sudden weight gain. He denies lightheadedness, dizziness, near-syncope, or syncope. He denies blood in urine, blood in stool, or epistaxis. He denies fever with chills. He denies myalgia. He denies fatigue. His exercise level has remained stable with regular trips to the gym and playing golf. Intake Vital Signs 12/17/23 08:02 05/20/24 10:01 06/18/24 09:50 Height 6 ft 3 in 6 ft 3 in 6 ft 3 in Weight: 192 lb 5 oz 193 lb BMI 24.0 24.1 BP 133/79 H 121/77 H Blood Pressure Location Lt brachial Lt brachial Position Sitting Sitting Respiration 16 16 Pulse 61 60 Pulse Source Monitor Monitor Temp 98.1 F 98.1 F Temperature Source Temporal Artery Oral Pulse Oximetry (%) 96 95 Oxygen Delivery Method room air room air Intake Visit Reasons: 1 Y FU/MEENAKSHI @ 8:30 Chief Of Planning Required: No Accompanied by: Self Is patient in pain?: No Allergies No Known Allergies Allergy (Verified 06/18/24 09:52) Medications ???Medication ???Instructions ???Recorded ???Confirmed ???Type rfyhrpayduuq-Ga-embx -minerals 18 1 tab PO DAILY 12/02/19 06/18/24 History mg-0.4 mg tablet (Maximum Daily Multivitamin) cetirizine 10 mg capsule (Zyrtec) 10 mg PO DAILY PRN 12/07/21 06/18/24 History carvedilol 6.25 mg tablet (Coreg) 6.25 mg PO BID #180 tabs 11/23/23 06/18/24 Rx aspirin 81 mg tablet,delayed 81 mg PO DAILY 12/17/23 06/18/24 History release (Adult Low Dose Aspirin) tadalafil 5 mg tablet 5 mg PO DAILY #30 tabs 12/24/23 06/18/24 Rx atorvastatin 40 mg tablet 40 mg PO DAILY #90 tabs 02/11/24 06/18/24 Rx allopurinol 100 mg tablet 100 mg PO BID #180 tabs 05/20/24 06/18/24 Rx amlodipine 5 mg tablet 5 mg PO DAILY #90 tabs 05/20/24 06/18/24 Rx lisinopril 40 mg tablet 40 mg PO DAILY blood pressure #90 05/20/24 06/18/24 Rx tabs Ejection fraction %: 60 Have you fallen in the past year?: No PFSH Medical History Abnormal prostate biopsy Prostate cancer Localized skin mass, lump, or swelling Erectile dysfunction Flu vaccine need Elevated PSA Preventative health care Blood glucose elevated Normal colonoscopy Wears glasses Gout High cholesterol Health care maintenance Colon cancer screening Right knee pain Paroxysmal atrial fibrillation Non-ischemic cardiomyopathy Essential (primary) hypertension Left bundle branch block (LBBB) Surgical History History of radiofrequency ablation procedure for cardiac arrhythmia (03/07/18) Biventricular implantable cardioverter-defibri llator (ICD) in situ (03/07/18) History of left heart catheterization (06/13/17) Family History Unknown No problems noted. Mother Alzheimer's dementia Mother Hypertension Father CVA (cerebral vascular accident) Hypertension Social History adopted: No household members: none number of children: 1 current occupational status: retired pets and animals: No Smoking Status: Former smoker quit date: 05/21/09 pack-years: 15 alcohol intake: current alcohol intake frequency: a few times a month substance use type: does not use caffeine: Yes (2-3) Type: coffee frequency: 3-4 times per week seatbelt use: always do you feel safe at home: Yes ROS Const Const: Negative for fatigue, weakness, fever(s), headache(s), chills, frequent falls, night sweats, daytime sleepiness, difficulty sleeping, excessive sweating, weight gain or weight loss Eyes Eyes: Negative for blind spots, loss of peripheral vision, transient loss of vision, bl (more content not included)... [facility] Pacemaker Checkon 06-18-2024 Pacemaker Check [facility] [address] [place] [address] Pacemaker Check Date of Service: 06/18/24 1022 MR#: [id number] Acct: [id number] Name: AMPARO MCDANIEL Rep #: [id number] : 1960 From: Genny Edgar Age/Sex: 63/M Location: [facility] Status: Signed Billing Codes ICD Device Billin ICD Dev Prog Eval, Multi Assessment and Plan Assessment and Plan (1) Biventricular implantable cardioverter-defibri llator (ICD) in situ: Status: Chronic (2) Non-ischemic cardiomyopathy: Status: Chronic (3) Left bundle branch block (LBBB): Status: Chronic 06/18/24 1023 Date Genny Taladon Belcherigndon Signature: Date (if applicable) CC: [facility] Radiation Oncology Visiton 1 Radiation Oncology Visit [facility] [place] [address] OFFICE VISIT Date of Service: 05/20/24 1000 MR#: [id number] Acct: [id number] Name: AMPARO MCDANIEL Rep #: [id number] : 1960 From: Dandre Carvalho DO Age/Sex: 63/M Location: [facility] Status: Signed Intake Vital Signs 12/17/23 08:02 05/20/24 10:01 Height 6 ft 3 in 6 ft 3 in Weight: 192 lb 5 oz BMI 24.0 BP 133/79 H Blood Pressure Location Lt brachial Position Sitting Respiration 16 Pulse 61 Pulse Source Monitor Temp 98.1 F Temperature Source Temporal Artery Pulse Oximetry (%) 96 Oxygen Delivery Method room air Intake Visit Reasons: PROSTATE CANCER Is patient in pain?: No Allergies No Known Allergies Allergy (Verified 05/20/24 10:02) Medications ???Medication ???Instructions ???Recorded ???Confirmed ???Type xbmjahhpctws-Qz-cesy -minerals 18 1 tab PO DAILY 12/02/19 05/20/24 History mg-0.4 mg tablet (Maximum Daily Multivitamin) cetirizine 10 mg capsule (Zyrtec) 10 mg PO DAILY PRN 12/07/21 05/20/24 History allopurinol 100 mg tablet 100 mg PO BID #180 tabs 11/23/23 05/20/24 Rx amlodipine 5 mg tablet 5 mg PO DAILY #90 tabs 11/23/23 05/20/24 Rx carvedilol 6.25 mg tablet (Coreg) 6.25 mg PO BID #180 tabs 11/23/23 05/20/24 Rx lisinopril 40 mg tablet 40 mg PO DAILY blood pressure #90 11/23/23 05/20/24 Rx tabs aspirin 81 mg tablet,delayed 81 mg PO DAILY 12/17/23 05/20/24 History release (Adult Low Dose Aspirin) tadalafil 5 mg tablet 5 mg PO DAILY #30 tabs 12/24/23 05/20/24 Rx atorvastatin 40 mg tablet 40 mg PO DAILY #90 tabs 02/11/24 05/20/24 Rx Have you fallen in the past year?: No PFSH PFSH Medical History Abnormal prostate biopsy Prostate cancer Localized skin mass, lump, or swelling Erectile dysfunction Flu vaccine need Elevated PSA Preventative health care Blood glucose elevated Normal colonoscopy Wears glasses Gout High cholesterol Health care maintenance Colon cancer screening Right knee pain Paroxysmal atrial fibrillation Non-ischemic cardiomyopathy Essential (primary) hypertension Left bundle branch block (LBBB) Home Medications ???Medication ???Instructions ???Recorded ???Last Taken ???Type xldzuxxselpn-Ir-dnju -minerals 18 1 tab PO DAILY 12/02/19 Unknown History mg-0.4 mg tablet (Maximum Daily Multivitamin) cetirizine 10 mg capsule (Zyrtec) 10 mg PO DAILY PRN 12/07/21 Unknown History allopurinol 100 mg tablet 100 mg PO BID #180 tabs 11/23/23 Unknown Rx amlodipine 5 mg tablet 5 mg PO DAILY #90 tabs 11/23/23 Unknown Rx carvedilol 6.25 mg tablet (Coreg) 6.25 mg PO BID #180 tabs 11/23/23 Unknown Rx lisinopril 40 mg tablet 40 mg PO DAILY blood pressure #90 11/23/23 Unknown Rx tabs aspirin 81 mg tablet,delayed 81 mg PO DAILY 12/17/23 Unknown History release (Adult Low Dose Aspirin) tadalafil 5 mg tablet 5 mg PO DAILY #30 tabs 12/24/23 Unknown Rx atorvastatin 40 mg tablet 40 mg PO DAILY #90 tabs 02/11/24 Unknown Rx Allergy/AdvReac Type Severity Reaction Status Date / Time No Known Allergies Allergy Verified 05/20/24 10:02 Family History Unknown No problems noted. Mother Alzheimer's dementia Mother Hypertension Father CVA (cerebral vascular accident) Hypertension Surgical History History of radiofrequency ablation procedure for cardiac arrhythmia (03/07/18) Biventricular implantable cardioverter-defibri llator (ICD) in situ (03/07/18) History of left heart catheterization (06/13/17) Social History adopted: No household members: none number of children: 1 current occupational status: retired pets and animals: No Smoking Status: Former smoker quit date: 05/21/09 pack-years: 15 alcohol intake: current alcohol intake frequency: a few times a month substance use type: does not use caffeine: Yes (2-3) Type: coffee frequency: 3-4 times per week seatbelt use: always do you feel safe at home: Yes Referring Provider: Carlos Saldaña MD Diagnosis: Amparo Mcdaniel is a 63 year-old male diagnosed with intermediate risk prostate adenocarcinoma (PSA: 6.76, GS 3+4) s/p MRI prostate (03/14/2024) and prostate biopsy (04/30/2024) History of Present Illness: 03/14/2024: Patient completed MRI prostate with and without contrast.??? This demonstrated a 1.22 cm ovoid intermediate signal nodule at the anterior segment of the right peripheral zone.??? This demonstrates enhancement on the postcontrast study is bright on diffusion weighted imaging.??? PI-RADS category 5.??? No extracapsular extension or seminal vesicle invasion is noted.??? No adeno (more content not included)... [facility] Surgery Specimen Level Jayne 04-29-2024 Surgery Specimen Level IV Patient Age/Sex Location Account Attending Physician AMPARO MCDANIEL 63/M LABSPEC [id number] Dr. James Saldaña MD Specimen: [id number] Received: 04/30/24 Status: RACHELE Egan Num: [id number] Spec Type: PROST BX Subm Dr: Dr. James Saldaña MD HEADER OPERATION: Prostate biopsy PRE-OP DIAGNOSIS: Elevated PSA TISSUE SUBMITTED: Right mid prostate biopsy MICROSCOPIC DIAGNOSIS Right mid prostate, needle core biopsy: Adenocarcinoma. Jeremias grade: 3+4 (7) Cores involved: 4/4 Tissue involved: 80 % Greatest tumor length: 10 millimeters Perineural invasion present. AM. 05/01/2024 COMMENT Case has been reviewed in consultation with Dr. Bellamy who concurs with the above diagnosis. IDC: MICROSCOPIC DESCRIPTION Slides are reviewed. GROSS DESCRIPTION Received is one container designated prostate, right mid - peripheral zone. The specimen consists of four elongated fragments of light camp-white soft tissue each measuring 1.0 to 1.5 cm in length and 0.1 cm in diameter. The specimen is totally submitted in two cassettes. . 04/30/2024 TC:0 CPT: G0146 Patient Age/Sex Location Account Attending Physician AMPARO MCDANIEL 63/M [facility]SPEC [id number] Dr. James Saldaña MD Signed (signature on file) Dr. Duane Torres DO 05/01/24 1243 [facility] Comment on above: Performed By: #### P WILMER ####[facility] [id number] [place], [address] Office Visit Reporton 2023 Office Visit Report [facility] [address] [place] [address] OFFICE VISIT Date of Service: 03/21/24 MR#: [id number] Acct: [id number] Patient: AMPARO MCDANIEL Rep #: [id number] : 1960 Provider: OSVALDO NURSE Age/Sex: 63/M Location: [facility] Status: Signed Intake Vital Signs 12/17/23 08:02 Height 6 ft 3 in Intake Visit Reasons: FLU SHOT Chief Complaint: FLU SHOT Allergies No Known Allergies Allergy (Verified 12/17/23 07:45) Have you fallen in the past year?: No Immunizations Fluad Triv (65y up)(PF) 45 mcg (15 mcg x 3)/0.5 mL IM syringe Performing Provider: Patricia Nguyen MD Performing Location: [facility] Administered by: Татьяна Funez LPN on 03/21/24 14:24 Dose Route Admin Location Dispensed Lot Number Expiration Date [facility] Man ufacturer 45 mcg IM Left Deltoid 0.5 mL [id number] 09/19/24 45982-131-68 [employer] VIS Given Date VIS Provided VIS Publication Date 03/21/24 Single Vaccine 24 Eligibility Eligibility Date Funding Source Not Applicable Administration Comments: pt requesting Flu immunization states that he has had it in years past with no adverse reactions or allergic reactions pt completed and signed vaccine consent form, placed in scan bin pt requested left deltoid for injection site tolerated well Assessment and Plan Assessment and Plan (1) Flu vaccine need: Status: Acute Orders: Orders Influenza Immunization Today Z23 - Encounter for immunization Clinical Quality Measures Falls Risk Screening/Assistive Devices Have you fallen in the past year?: No 03/21/24 1649 Date Patricia Ramos Signature: Date (if applicable) CC: [facility] Pelvis W/WO Contraston 03-14 Pelvis W/WO Contrast [facility] [address] [address] Pelvis W/WO Contrast MR#: [id number] Acct: [id number] Name: AMPARO MCDANIEL Rep #: [id number] : 1960 M 63 From: Janusz shepherd MD PCP: Dr. Patricia Nguyen MD Status: REG CLI Study: Pelvis W/WO Contrast Date of Exam: 03/14/24 Exam# [id number] Ordering Dr: James Saldaña MD [id number] STUDY: MR PROSTATE GLAND/ PELVIS WITH T WITHOUT CONTRAST REASON FOR EXAM: Male, 63 years old. ELEVATED PSA TECHNIQUE: Standardized fat and water weighted pulse sequences were obtained in all 3 orthogonal planes, pre-and post contrast administration. IV 17 cc clariscan was administered for the contrast portion of the examination. COMPARISON: None. FINDINGS: Prostate gland volume/size: 5.53 x 4.63 x 5.49 cm, which is mildly enlarged. Anterior fibromuscular stroma: Normal Peripheral zone: Small 1.22 cm ovoid intermediate signal nodule at the anterior superior aspect of the right peripheral zone (see image 13/30 series 8) that demonstrates enhancement on the postcontrast study and is bright on the diffusion-weighted sequence image 22/152 and dark on ADC map image 17/30 series 701 which is usually indicative of malignant neoplasm. Additional mottled areas of linear and irregular intermediate to low signal is scattered throughout the bilateral peripheral zones but without focal nodularity or mass. Central zone: Diffusely intermediate to low signal, nodular, and microcystic and hyperplastic with diffuse enhancement. Transitional zone: Diffusely intermediate to low signal, nodular, and microcystic and hyperplastic with diffuse enhancement. Prostate capsule: Intact Seminal vesicles: Normal bilaterally Pelvic sidewall lymphadenopathy: Bony structures: No marrow edema or lytic or blastic lesions or abnormally enhancing lesions. Normal urinary bladder. Normal visualized small intestine. Normal visualized colon. There is no pelvic fluid. There is no pelvic mass lesion or lymphadenopathy. Normal abdominal wall. MRI/Pelvis W/WO Contrast IMPRESSION: 1. Peripheral zone: Small 1.22 cm ovoid intermediate signal nodule at the anterior superior aspect of the right peripheral zone (see image 13/30 series 8) that demonstrates enhancement on the postcontrast study and is bright on the diffusion-weighted sequence image 22/152 and dark on ADC map image 17/30 series 701 which is usually indicative of malignant neoplasm. Additional mottled areas of linear and irregular intermediate to low signal is scattered throughout the bilateral peripheral zones but without focal nodularity or mass. 2. PI-RADS 5: very high (clinically significant cancer is highly likely to be present) Reference information: Normal prostate tissue Benign prostatic hypertrophy cancer/tumor - low signal peripheral , transitional, and central zones malignancy appears as bright on DWI and low signal on ADC map Prostate imaging-reporting and data system (PI-RADS) PI-RADS 1: very low (clinically significant cancer is highly unlikely to be present) PI-RADS 2: low (clinically significant cancer is unlikely to be present) PI-RADS 3: intermediate (the presence of clinically significant cancer is equivocal) PI-RADS 4: high (clinically significant cancer is likely to be present) PI-RADS 5: very high (clinically significant cancer is highly likely to be present) PI-RADS X: component of exam technically inadequate or not performed Prostate malignancy distribution: Peripheral zone: 70-80% Transitional zone: 10-20% Central zone: 5% or less Electronically Signed: Janusz Wisdom MD at 15:58 EDT Reading Location ID and State: [facility] / [place] , Service support , CC: Dr. Patricia Nguyen MD; Dr. James Saldaña MD Campground Attendant: Signed [facility] PSA Total+%Freeon 03-12-2024 PSA, FREE 1.24 ng/mL Normal N/A [facility] Comment on above: Order Comment: Speci men Comment: A duplicate report has been generated due to demographic Specimen Comment: updates. Result Comment: Roch e ECLIA methodology. Performed By: #### L [id number] #### [facility] [address] [place], [address] PSA, FREE % 18.3 Normal . [facility] Comment on above: Order Comment: Speci men Comment: A duplicate report has been generated due to demographic Specimen Comment: updates. Result Comment: The table below lists the probability of prostate cancer for men with non-suspicious SALUD results and total PSA between 4 and 10 ng/mL, by patient age (Yevgeniy et al, KAM 1998, 279:1542). % Free PSA 50-64 yr 65-75 yr 0.00-10.00% 56% 55% 10.01-15.00% 24% 35% 15.01-20.00% 17% 23% 20.01-25.00% 10% 20% >25.00% 5% 9% Please note: Yevgeniy et al did not make specific recommendations regarding the use of percent free PSA for any other population of men. Performed at: [address] [id number] Director Home Health: Wilmer Hudson PhD, Phone: [phone] Performed By: #### L [id number] #### [facility] [address] [place], [address] PSA, TOTAL ULTR 6.760 ng/mL Abnormal 0.000-4.000 [facility] Comment on above: Order Comment: Speci men Comment: A duplicate report has been generated due to demographic Specimen Comment: updates. Result Comment: Cleve MARTINEZ methodology. According to the [employer] [employer], Serum PSA should decrease and remain at undetectable levels after radical prostatectomy. The AUA defines biochemical recurrence as an initial PSA value 0.200 ng/mL or greater followed by a subsequent confirmatory PSA value 0.200 ng/mL or greater. Values obtained with different assay methods or kits cannot be used interchangeably. Results cannot be interpreted as absolute evidence of the presence or absence of malignant disease. Performed By: #### L [id number] #### [facility] [address] [place], [place], [address] Testosterone, Total / Freeon 12-20-2023 TESTOSTER,FREE 9.07 ng/dL Normal 5.00-21.00 [facility] Comment on above: Order Comment: N Performed By: #### L 3100.5310, L500.4050, L500.4100, L100.0100, L501.9910 ####[facility] [address] [place], [address] TESTOSTERONE, T 430 ng/dL Normal 264-916 [facility] Comment on above: Order Comment: N Result Comment: Adul t male reference interval is based on a population of healthy nonobese males (BMI <30) between 19 and 39 years old. jelly Kevin.al. JCEM 2017,102;0734-7715. PMID: [id number]. Performed By: #### L 3100.5310, L500.4050, L500.4100, L100.0100, L501.9910 ####[facility] [address] [place], [place], [phone] TESTOSTERONE,%F 2.11 Normal 1.50-4.20 [facility] Comment on above: Order Comment: N Result Comment: Perf ormed at: [facility] [address] [id number] Director Home Health: Wilmer Hudson PhD, Phone: [phone] Performed at: [facility] [address] [id number] Director Home Health: Romy Grace MD, Phone: [phone] Performed By: #### L 3100.5310, L500.4050, L500.4100, L100.0100, L501.9910 ####[facility] [address] [place], [address] Hemoglobin A1con 12-18-2023 HbA1c (Bld) [Mass fraction] 5.6 % Normal 3.8-5.6 [facility] Comment on above: Result Comment: Norm al < 5.7 % Prediabetic 5.7 - 6.4 % Diabetic >or= 6.5 % Please note range changes. Performed By: #### L 501.9985 ####[facility] [address] [place], [address] CBC W/Diff, Automatedon 07- Absolute Lymph 1.68 X10 3/uL Normal 0.83-4.51 [facility] Comment on above: Performed By: #### L 3100.5310, L500.4050, L500.4100, L100.0100, L501.9910 #### [facility] [address] [place], [address] Absolute Neut 2.7 X10 3/uL Normal 2.0-7.7 [facility] Comment on above: Performed By: #### L 3100.5310, L500.4050, L500.4100, L100.0100, L501.9910 #### [facility] [address] [place], [address] Basophils/100 WBC (Bld) 1.4 % High 0-1 [facility] Comment on above: Performed By: #### L 3100.5310, L500.4050, L500.4100, L100.0100, L501.9910 #### [facility] [address] [place], [address] Eosinophils/100 WBC (Bld) 1.6 % Normal 0-5 [facility] Comment on above: Performed By: #### L 3100.5310, L500.4050, L500.4100, L100.0100, L501.9910 #### [facility] [address] [place], [address] Erythrocyte distribution width (RBC) [Ratio] 13.0 % Normal 11.6-14.6 [facility] Comment on above: Performed By: #### L 3100.5310, L500.4050, L500.4100, L100.0100, L501.9910 #### [facility] [address] [place], [address] Hematocrit (Bld) [Volume fraction] 46.1 % Normal 40-54 [facility] Comment on above: Performed By: #### L 3100.5310, L500.4050, L500.4100, L100.0100, L501.9910 #### [facility] [address] [place], [address] Hemoglobin (Bld) [Mass/Vol] 15.3 g/dL Normal 13.0-16.5 [facility] Comment on above: Performed By: #### L 3100.5310, L500.4050, L500.4100, L100.0100, L501.9910 #### [facility] [address] [place], [address] IG% 0.400 Normal 0.0-0.9 [facility] Comment on above: Result Comment: IG% - Immature Granulocytes (promyelocytes, myelocytes and metamyelocytes) > 1% indicates that a LEFT SHIFT is Present. Performed By: #### L 3100.5310, L500.4050, L500.4100, L100.0100, L501.9910 #### [facility] [address] [place], [address] Lymphocytes/100 WBC (Bld) 33.4 % Normal 19-41 [facility] Comment on above: Performed By: #### L 3100.5310, L500.4050, L500.4100, L100.0100, L501.9910 #### [facility] [address] [place], [address] MCH (RBC) [Entitic mass] 30.7 pg Normal 27.0-32.0 [facility] Comment on above: Performed By: #### L 3100.5310, L500.4050, L500.4100, L100.0100, L501.9910 #### [facility] [address] [place], [address] MCHC (RBC) [Mass/Vol] 33.2 g/dL Normal 32-36 [facility] Comment on above: Performed By: #### L 3100.5310, L500.4050, L500.4100, L100.0100, L501.9910 #### [facility] [address] [place], [address] MCV (RBC) [Entitic vol] 92.6 fL Normal 80-94 [facility] Comment on above: Performed By: #### L 3100.5310, L500.4050, L500.4100, L100.0100, L501.9910 #### [facility] [address] [place], [address] Monocytes/100 WBC (Bld) 8.9 % Normal 0-10 [facility] Comment on above: Performed By: #### L 3100.5310, L500.4050, L500.4100, L100.0100, L501.9910 #### [facility] [address] [place], [address] Neutrophils/100 WBC (Bld) 54.3 % Normal 47-70 [facility] Comment on above: Performed By: #### L 3100.5310, L500.4050, L500.4100, L100.0100, L501.9910 #### [facility] [address] [place], [address] Nucleated RBC (Bld) [#/Vol] 0 10*3/uL Normal 0-5 [facility] Comment on above: Performed By: #### L 3100.5310, L500.4050, L500.4100, L100.0100, L501.9910 #### [facility] [address] [place], [address] Platelet mean volume (Bld) [Entitic vol] 12.3 fL High 6.2-12.0 [facility] Comment on above: Performed By: #### L 3100.5310, L500.4050, L500.4100, L100.0100, L501.9910 #### [facility] [address] [place], [address] Platelets (Bld) [#/Vol] 154 10*3/uL Normal 150-450 [facility] Comment on above: Performed By: #### L 3100.5310, L500.4050, L500.4100, L100.0100, L501.9910 #### [facility] [address] [place], [address] RBC (Bld) [#/Vol] 4.98 10*6/uL Normal 4.6-6.2 [facility] Comment on above: Performed By: #### L 3100.5310, L500.4050, L500.4100, L100.0100, L501.9910 #### [facility] [address] [place], [address] RDW SD 43.7 fl Normal 35.1-43.9 [facility] Comment on above: Performed By: #### L 3100.5310, L500.4050, L500.4100, L100.0100, L501.9910 #### [facility] [address] [place], [address] WBC (Bld) [#/Vol] 5.0 10*3/uL Normal 4.4-11.0 [facility] Comment on above: Performed By: #### L 3100.5310, L500.4050, L500.4100, L100.0100, L501.9910 #### [facility] [address] [place], [address] Comprehensive Metabolic Prof vaon 12-17-2023 Albumin [Mass/Vol] 4.1 g/dL Normal 3.2-5.0 [facility] Comment on above: Performed By: #### L 3100.5310, L500.4050, L500.4100, L100.0100, L501.9910 ####[facility] [address] [place], [address] Albumin/Globulin [Mass ratio] 1.3 {ratio} Normal 0.9-2.4 [facility] Comment on above: Performed By: #### L 3100.5310, L500.4050, L500.4100, L100.0100, L501.9910 ####[facility] [address] [place], [address] ALK P 67 U/L Normal 45-117 [facility] Comment on above: Performed By: #### L 3100.5310, L500.4050, L500.4100, L100.0100, L501.9910 ####[facility] [address] [place], [address] ALT [Catalytic activity/Vol] 44 U/L Normal 16-61 [facility] Comment on above: Performed By: #### L 3100.5310, L500.4050, L500.4100, L100.0100, L501.9910 ####[facility] [address] [place], [address] AST [Catalytic activity/Vol] 36 U/L Normal 15-37 [facility] Comment on above: Performed By: #### L 3100.5310, L500.4050, L500.4100, L100.0100, L501.9910 ####[facility] [address] [place], [address] Bilirubin [Mass/Vol] 0.90 mg/dL Normal 0.20-1.00 [facility] Comment on above: Result Comment: For patients on eltrombopag therapy, use of Dimension Tilly TBIL is not recommended. Performed By: #### L 3100.5310, L500.4050, L500.4100, L100.0100, L501.9910 ####[facility] [address] [place], [address] BUN/CRE 16.5 RATIO Normal 10-20 [facility] Comment on above: Performed By: #### L 3100.5310, L500.4050, L500.4100, L100.0100, L501.9910 ####[facility] [address] [place], [address] CA,Total 9.4 mg/dL Normal 8.5-10.1 [facility] Comment on above: Performed By: #### L 3100.5310, L500.4050, L500.4100, L100.0100, L501.9910 ####[facility] [address] [place], [address] Chloride [Moles/Vol] 106 mmol/L Normal 98-107 [facility] Comment on above: Performed By: #### L 3100.5310, L500.4050, L500.4100, L100.0100, L501.9910 ####[facility] [address] [place], [address] CO2 [Moles/Vol] 25.0 mmol/L Normal 21.0-32.0 [facility] Comment on above: Performed By: #### L 3100.5310, L500.4050, L500.4100, L100.0100, L501.9910 ####[facility] [address] [place], [address] Creatinine [Mass/Vol] 0.97 mg/dL Normal 0.70-1.30 [facility] Comment on above: Result Comment: The validity of the calculated GFR GFRAA in patients over 70 years has not been determined. Clinical correlation is essential. Performed By: #### L 3100.5310, L500.4050, L500.4100, L100.0100, L501.9910 ####[facility] [address] [place], [address] EST GFR - AA 100 mL/min Normal >60 [facility] Comment on above: Result Comment: Afri can Icelandic GFR Calc Performed By: #### L 3100.5310, L500.4050, L500.4100, L100.0100, L501.9910 ####[facility] [address] [place], [address] GAP 5 Normal 5-15 [facility] Comment on above: Performed By: #### L 3100.5310, L500.4050, L500.4100, L100.0100, L501.9910 ####[facility] [address] [place], [address] GFR/1.73 sq M.predicted among non-blacks MDRD (S/P/Bld) [Vol rate/Area] 82 mL/min/{1.73_m2} Normal >60 [facility] Comment on above: Result Comment: Non- GFR Calc Performed By: #### L 3100.5310, L500.4050, L500.4100, L100.0100, L501.9910 ####[facility] [address] [place], [address] Globulin (S) [Mass/Vol] 3.1 g/dL Normal 2.2-4.2 [facility] Comment on above: Performed By: #### L 3100.5310, L500.4050, L500.4100, L100.0100, L501.9910 ####[facility] [address] [place], [address] Glucose [Mass/Vol] 121 mg/dL High 74-106 [facility] Comment on above: Result Comment: Fast ing Glucose result from 100 to 125 mg/dL suggests IMPAIRED HOMEOSTASIS per A.D.A. criteria. Performed By: #### L 3100.5310, L500.4050, L500.4100, L100.0100, L501.9910 ####[facility] [address] [place], [address] Potassium [Moles/Vol] 4.3 mmol/L Normal 3.5-5.1 [facility] Comment on above: Performed By: #### L 3100.5310, L500.4050, L500.4100, L100.0100, L501.9910 ####[facility] [address] [place], [address] Sodium [Moles/Vol] 136 mmol/L Normal 136-145 [facility] Comment on above: Performed By: #### L 3100.5310, L500.4050, L500.4100, L100.0100, L501.9910 ####[facility] [address] [place], [address] T PROT 7.2 g/dL Normal 6.4-8.2 [facility] Comment on above: Performed By: #### L 3100.5310, L500.4050, L500.4100, L100.0100, L501.9910 ####[facility] [address] [place], [address] Urea nitrogen [Mass/Vol] 16 mg/dL Normal 7-18 [facility] Comment on above: Performed By: #### L 3100.5310, L500.4050, L500.4100, L100.0100, L501.9910 ####[facility] [address] [place], [address] Internal Medicine Office Vis eva 12-17-2023 Internal Medicine Office Visit [facility] [address] [place] [address] [place] [address] OFFICE VISIT Date of Service: 12/17/23 MR#: [id number] Acct: [id number] Name: AMPARO MCDANIEL Rep #: [id number] : 1960 Provider: Dr. Patricia gonzalez MD Age/Sex: 63/M Location: [facility] Status: Signed Intake Vital Signs 12/08/22 07:55 06/05/23 08:36 12/17/23 08:02 Height 6 ft 3 in 6 ft 3 in 6 ft 3 in Weight: 180 lb BMI 22.5 BP 110/70 Blood Pressure Location Lt brachial Position Sitting Respiration 14 Pulse 60 Pulse Source Monitor Temp 97.9 F Temp Source Temporal Pulse Oximetry (%) 99 Oxygen Delivery Method room air Intake Visit Reasons: 1 Y FU Chief Complaint: Yearly visit Chief Of Planning Required: No Is patient in pain?: No Allergies No Known Allergies Allergy (Verified 12/17/23 07:45) Medications ???Medication ???Instructions ???Recorded ???Confirmed ???Type fkcecvznmxcv-Bw-kraq -minerals 18 1 tab PO DAILY 12/02/19 12/17/23 History mg-0.4 mg tablet (Maximum Daily Multivitamin) cetirizine 10 mg capsule (Zyrtec) 10 mg PO DAILY PRN 12/07/21 12/17/23 History atorvastatin 40 mg tablet 40 mg PO DAILY #90 tabs 03/05/23 12/17/23 Rx allopurinol 100 mg tablet 100 mg PO BID #180 tabs 11/23/23 12/17/23 Rx amlodipine 5 mg tablet 5 mg PO DAILY #90 tabs 11/23/23 12/17/23 Rx carvedilol 6.25 mg tablet (Coreg) 6.25 mg PO BID #180 tabs 11/23/23 12/17/23 Rx lisinopril 40 mg tablet 40 mg PO DAILY blood pressure #90 11/23/23 12/17/23 Rx tabs aspirin 81 mg tablet,delayed 81 mg PO DAILY 12/17/23 12/17/23 History release (Adult Low Dose Aspirin) Have you fallen in the past year?: No PFSH Medical History (Updated 12/17/23 @ 12:[address] Patricia Nguyen MD) Localized skin mass, lump, or swelling Erectile dysfunction Flu vaccine need Elevated PSA Preventative health care Blood glucose elevated Normal colonoscopy Wears glasses Gout High cholesterol Health care maintenance Colon cancer screening Right knee pain Paroxysmal atrial fibrillation Non-ischemic cardiomyopathy Essential (primary) hypertension Left bundle branch block (LBBB) Surgical History History of radiofrequency ablation procedure for cardiac arrhythmia (03/07/18) Biventricular implantable cardioverter-defibri llator (ICD) in situ (03/07/18) History of left heart catheterization (06/13/17) Family History Unknown No problems noted. Mother Alzheimer's dementia Mother Hypertension Father CVA (cerebral vascular accident) Hypertension Social History (Updated 12/17/23 @ 08:02 by Leela Anderson MA) adopted: No household members: none number of children: 1 current occupational status: retired pets and animals: No Smoking Status: Former smoker quit date: 05/21/09 pack-years: 15 alcohol intake: current alcohol intake frequency: a few times a month substance use type: does not use caffeine: Yes (2-3) Type: coffee frequency: 3-4 times per week seatbelt use: always do you feel safe at home: Yes HPI HPI Chief Complaint: Yearly visit Details: AMPARO MCDANIEL, is a 63 M who presents to the office today for his yearly visit. Also has some concerns. He reports concerns with erectile dysfunction which has been ongoing for some time. 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 This has progressively worsened. History of paroxysmal atrial fibrillation, hypertension and nonischemic cardiomyopathy. Had been on anticoagulation however, this was discontinued. He has questions about aspirin. Positive family history of CVA in his father. He also reports a skin swelling which has been present for at least 20 years. No change in size, pain or discomfort. His daughter who is a nurse practitioner recently raised some concerns about it but otherwise, he has not been bothered by it. Has not had any evaluation by dermatology. Other chronic medical conditions are largely stable. History of BPH/elevated PSA. Repeat PSA after initial elevation did show improvement. He denies any urinary concerns at this time. ROS Const Constitutional: No body ache, chills, excessive sweating, fatigue, fever(s), frequent falls, headache(s), snoring, weakness, sleep problems or change in appetite Eyes Eyes: No blurry vision, change in vision, dry eyes, floaters, visual disturbances, eye pain or Light sensitivity ENT ENT: No abnormal hearing, ear or mastoid pain, tinnitus, balance problems, nosebleed/epistaxis, nasal congestion, headache(s), neck pain or sore throat Resp Respiratory: No cough, excessive phlegm production, pain on inspiration, shortness of breath, snoring or (more content not included)... Normal [facility] Lipid Profileon 12-17-2023 Cholesterol [Mass/Vol] 134 mg/dL Normal 200 [facility] Comment on above: Result Comment: <200 mg/dL Desirable 200-240 mg/dL Borderline >240 mg/dL High Risk Performed By: #### L 3100.5310, L500.4050, L500.4100, L100.0100, L501.9910 ####[facility] [address] [place], [address] Cholesterol in HDL [Mass/Vol] 58 mg/dL Normal [facility] Comment on above: Result Comment: The drugs N-Acetylcysteine and Metamizole may falsely depress this assay. Reference Range HDL <40 mg/dL Low HDL Cholesterol HDL >or= 60 mg/dL High HDL Cholesterol Performed By: #### L 3100.5310, L500.4050, L500.4100, L100.0100, L501.9910 ####[facility] [address] [place], [address] Cholesterol in LDL [Mass/Vol] 59 mg/dL Normal 0-130 [facility] Comment on above: Performed By: #### L 3100.5310, L500.4050, L500.4100, L100.0100, L501.9910 ####[facility] [address] [place], [place], [address] Cholesterol in VLDL [Mass/Vol] 17 mg/dL Normal 5-40 [facility] Comment on above: Performed By: #### L 3100.5310, L500.4050, L500.4100, L100.0100, L501.9910 ####[facility] [address] [place], [place], [address] Triglyceride [Mass/Vol] 87 mg/dL Normal [facility] Comment on above: Result Comment: The drugs N-Acetylcysteine and Metamizole may falsely depress this assay. Serum Triglycerides Reference Interval Normal <150 mg/dL Borderline high 150 - 199 mg/dL High 200 - 499 mg/dL Very High > or = 500 mg/dL Performed By: #### L 3100.5310, L500.4050, L500.4100, L100.0100, L501.9910 ####[facility] [address] [place], [place], [id number] PSA,Total - Annual Screenon 12-17-2023 PSA,TOT SCREEN 5.74 ng/mL High 0.00-4.00 [facility] Comment on above: Result Comment: This test was performed using the TPSA assay method for the [employer] system. Values obtained with different assay methods cannot be used interchangably. When changing PSA assays in the course of monitoring a patient, additional sequential testing should be carried out to confirm baseline values. Performed By: #### L 3100.5310, L500.4050, L500.4100, L100.0100, L501.9910 ####[facility] [address] [place], [place], [id number] No Panel InformationOrdered By: Patricia Nguyen on 05-02-2023 Prostate Specific Antigen Total 4.65 ng/mL 0.0-4.0 [facility] Comment on above: This test was perfor med using the TPSA assay method for [employer] chemistry system. Values obtained with differentassay methods cannot be used interchangably.When changing PSA assays in the course of monitoring apatient, additional sequential testing should be carriedout to confirm baseline values. Basophil percentageOrdered B y: Dr. Nguyen on 06-09-2022 Chloride [Moles/Vol] 107 mmol/L 98-107 [facility] Glucose [Mass/Vol] 126 mg/dL 74-106 [facility] Comment on above: Fasting Glucose resu lt greater than or equal to 126 mg/dL suggests DIABETES MELLITUS per A.D.A. criteria. Potassium [Moles/Vol] 4.5 mmol/L 3.5-5.1 [facility] Sodium [Moles/Vol] 141 mmol/L 136-145 [facility] - Chemistry and C hemistry - challengeOrdered By: Dr. Nguyen on 06-09-2022 CO2 [Moles/Vol] 29.0 mmol/L 21.0-32.0 [facility] Urea nitrogen/Creatinine [Mass ratio] 20.8 mg/mg 10- [facility] No Panel InformationOrdered By: Dr. Nguyen on 06-09-2022 Estimated GFR (MDRD) Amer 102 mL/min >60 [facility] Comment on above: GFR Calc Estimated GFR (MDRD) Non-Af Amer 84 mL/min >60 [facility] Comment on above: Non- GFR Calc Serum or plasma calcium ricki urement (mass/volume)Ordered By: Dr. Nguyen on 06-09-2022 Calcium [Mass/Vol] 9.3 mg/dL 8.5-10.1 [facility] Serum or plasma creatinine m easurement (mass/volume)Ordered By: Dr. Nguyen on 06-09-2022 Creatinine [Mass/Vol] 0.96 mg/dL 0.70-1.30 [facility] Comment on above: The validity of the calculated GFR & GFRAA in patients over 70 years has not been determined. Clinical correlation is essential. Serum or plasma urea nitroge n measurement (mass/volume)Ordered By: Dr. Nguyen on 06-09-2022 Urea nitrogen [Mass/Vol] 20 mg/dL 7-18 [facility] Thin prep Papanicolaou smear with manual screeningOrdered By: Dr. Nguyen on 06-09-2022 Thin prep Papanicolaou smear with manual screening 5 5-15 [facility] Whole blood hemoglobin A1c/t otal hemoglobin ratio (mass fraction)Ordered By: Dr. Nguyen on 06-09-2022 HbA1c (Bld) [Mass fraction] 5.4 % 3.8-5.6 [facility] Comment on above: Normal < 5.7 % Predi abetic 5.7 - 6.4 % Diabetic >or= 6.5 % Please note range changes. Absolute lymphocyte counton 12-07-2021 Lymphocytes Auto (Unsp spec) [#/Vol] 1.55 10*3/uL 0.83-4.51 [facility] Work Phone: Basophil percentageon 2021 Basophils/100 WBC (Bld) 1.2 % 0-1 [facility] Work Phone: Bilirubin [Mass/Vol] 1.20 mg/dL 0.20-1.00 [facility] Work Phone: Comment on above: For patients on eltr ombopag therapy, use of Dimension Tilly TBIL is not recommended. Chloride [Moles/Vol] 106 mmol/L 98-107 [facility] Work Phone: Cholesterol [Mass/Vol] 128 mg/dL <200 [facility] Work Phone: Comment on above: <200 mg/dL Desirable 200-240 mg/dL Borderline >240 mg/dL High Risk Eosinophils/100 WBC (Bld) 1.8 % 0-5 [facility] Work Phone: Glucose [Mass/Vol] 114 mg/dL 74-106 [facility] Work Phone: Comment on above: Fasting Glucose resu lt from 100 to 125 mg/dL suggests IMPAIRED HOMEOSTASIS per A.D.A. criteria. Neutrophils (Bld) [#/Vol] 2.8 10*3/uL 2.0-7.7 [facility] Work Phone: Neutrophils/100 WBC (Bld) 55.3 % 47-70 [facility] Work Phone: Potassium [Moles/Vol] 4.3 mmol/L 3.5-5.1 [facility] Work Phone: Protein [Mass/Vol] 6.9 g/dL 6.4-8.2 [facility] Work Phone: Sodium [Moles/Vol] 139 mmol/L 136-145 [facility] Work Phone: Triglyceride [Mass/Vol] 89 mg/dL <199 [facility] Work Phone: Comment on above: The drugs N-Acetylcy steine and Metamizole may falsely depress this assay.Serum Triglycerides Reference Interval Normal <150 mg/dL Borderline high 150 - 199 mg/dL High 200 - 499 mg/dL Very High > or = 500 mg/dL WBC (Bld) [#/Vol] 5.0 10*3/uL 4.4-11.0 [facility] Work Phone: Blood erythrocytes count (nu mber/volume)on 12-07-2021 RBC (Bld) [#/Vol] 4.63 10*6/uL 4.6-6.2 [facility] Work Phone: Blood hemoglobin measurement (mass/volume)on 12-07-2021 Hemoglobin (Bld) [Mass/Vol] 14.4 g/dL 13.0-16.5 [facility] Work Phone: Blood lymphocytes/100 leukoc yteson 12-07-2021 Lymphocytes/100 WBC (Bld) 30.8 % 19-41 [facility] Work Phone: Blood monocytes/100 leukocyt eson 12-07-2021 Monocytes/100 WBC (Bld) 10.5 % 0-10 [facility] Work Phone: Blood platelet mean volumeon 12-07-2021 Platelet mean volume (Bld) [Entitic vol] 12.2 fL 6.2-12.0 [facility] Work Phone: Determination of erythrocyte mean corpuscular volume (MCV)on 12-07-2021 MCV (RBC) [Entitic vol] 92.7 fL 80-94 [facility] Work Phone: Hematocrit Auto (Bld) [Volum e fraction]on 12-07-2021 Hematocrit (Bld) [Volume fraction] 42.9 % 40-54 [facility] Work Phone: Laboratory - Chemistry and C hemistry - challengeon 12-07-2021 ALP [Catalytic activity/Vol] 71 U/L 45-117 [facility] Work Phone: ALT [Catalytic activity/Vol] 33 U/L 16-61 [facility] Work Phone: [phone] CO2 [Moles/Vol] 29.0 mmol/L 21.0-32.0 [facility] Work Phone: [phone] Globulin (S) [Mass/Vol] 3.0 g/dL 2.2-4.2 [facility] Work Phone: [phone] Urea nitrogen/Creatinine [Mass ratio] 20.7 mg/mg - [facility] Work Phone: [phone] Laboratory - Hematology and Cell countson 12-07-2021 Erythrocyte distribution width (RBC) [Entitic vol] 44.3 fL 35.1-43.9 [facility] Work Phone: [phone] Erythrocyte distribution width (RBC) [Ratio] 13.1 % 11.6-14.6 [facility] Work Phone: [phone] Immature granulocytes/100 WBC (Bld) 0.400 % 0.0-0.9 [facility] Work Phone: [phone] Comment on above: IG% - Immature Granu locytes (promyelocytes, myelocytes and metamyelocytes) > 1% indicates that a LEFT SHIFT is Present. MCH (RBC) [Entitic mass] 31.1 pg 27.0-32.0 [facility] Work Phone: [phone] Nucleated RBC/100 WBC (Bld) [Ratio] 0 % 0-5 [facility] Work Phone: MCHC Auto (RBC) [Mass/Vol]on 12-07-2021 MCHC (RBC) [Mass/Vol] 33.6 g/dL 32-36 [facility] Work Phone: No Panel Informationon 12-07 Estimated GFR (MDRD) Amer 114 mL/min >60 [facility] Work Phone: Comment on above: GFR Calc Estimated GFR (MDRD) Non-Af Amer 94 mL/min >60 [facility] Work Phone: Comment on above: Non- GFR Calc Platelets bldon 12-07-2021 Platelets (Bld) [#/Vol] 140 10*3/uL 150-450 [facility] Work Phone: Serum or plasma albumin ricki urement (mass/volume)on 12-07-2021 Albumin [Mass/Vol] 3.9 g/dL 3.2-5.0 [facility] Work Phone: Serum or plasma albumin/glob ulin mass ratioon 12-07-2021 Albumin/Globulin [Mass ratio] 1.3 {ratio} 0.9-2.4 [facility] Work Phone: Serum or plasma calcium ricki urement (mass/volume)on 12-07-2021 Calcium [Mass/Vol] 9.4 mg/dL 8.5-10.1 [facility] Work Phone: Serum or plasma cholesterol in HDL measurement (mass/volume)on 12-07-2021 Cholesterol in HDL [Mass/Vol] 48 mg/dL >40 [facility] Work Phone: Comment on above: The drugs N-Acetylcy steine and Metamizole may falsely depress this assay. Reference Range HDL <40 mg/dL Low HDL Cholesterol HDL >or= 60 mg/dL High HDL Cholesterol Serum or plasma cholesterol in VLDL measurement (mass/volume)on 12-07-2021 Cholesterol in VLDL [Mass/Vol] 18 mg/dL 5-40 [facility] Work Phone: Serum or plasma creatinine m easurement (mass/volume)on 12-07-2021 Creatinine [Mass/Vol] 0.87 mg/dL 0.70-1.30 [facility] Work Phone: Comment on above: The validity of the calculated GFR & GFRAA in patients over 70 years has not been determined. Clinical correlation is essential. Serum or plasma low density lipoprotein (LDL) cholesterol measurement (mass/volume)on 12-07-2021 Cholesterol in LDL [Mass/Vol] 62 mg/dL 0-130 [facility] Work Phone: Serum or plasma urea nitroge n measurement (mass/volume)on 12-07-2021 Urea nitrogen [Mass/Vol] 18 mg/dL 7-18 [facility] Work Phone: Serum or plasma uric acid me asurement (mass/volume)on 12-07-2021 Urate [Mass/Vol] 5.9 mg/dL 3.5-7.2 [facility] Work Phone: Comment on above: The drugs N-Acetylcy steine and Metamizole may falsely depress this assay. Thin prep Papanicolaou smear with manual screeningon 12-07-2021 Thin prep Papanicolaou smear with manual screening 23 U/L 15-37 [facility] Work Phone: Thin prep Papanicolaou smear with manual screening 4 5-15 [facility] Work Phone: [facility] [facility] Telephone (FAMPWS) AMPARO MCDANIEL ([id number]) 1960 Date Time Provider Department 08/03/20 MARIAN STYLES During your visit today, we recorded the following information about you: Marian Styles MD 08/03/2020 8:40 AM Signed Needs Pt Outreach to schedule appt to follow up HTN MD Sheron Garcia Ma 08/03/2020 8:54 AM Signed Outreach encounter done. Sheron Judd Ma Allergies As of Date: 08/03/2020 (No Known Allergies) Date Reviewed: 12/30/2018 Reviewed by: Segundo (Ink Technician) Donovan - Fully Assessed Reason for Visit: PHMA/Care Gap Outreach [3605] Cmt: HTN Prescriptions as of 08/03/2020 Sig: [...] of internal cardiac defibr*04/19/2018 Encounter Status:Closed by SHERON JUDD MA on 08/03/20 Normal [facility] Vital Signs Date Time Vital Sign Value Performing Clinician Tali wright 09-15-2024 14:37-0400 Body height 190.[address] Patricia Nguyen MD Work Phone: [facility] 09-15-2024 14:37-0400 Body mass index (BMI) [Ratio] 24.1 kg/m2 Dr. Patricia Nguyen MD Work Phone: [facility] 09-15-2024 14:37-0400 Body temperature 96.7 [degF] Dr. Patricia Nguyen MD Work Phone: [facility] 09-15-2024 14:37-0400 Body weight 87.[address] Patricia Nguyen MD Work Phone: [facility] 09-15-2024 14:37-0400 Diastolic blood pressure 80 mm[Hg] Dr. Patricia Nguyen MD Work Phone: [facility] 09-15-2024 14:37-0400 Heart rate 59 /min Dr. Patricia Nguyen MD Work Phone: [facility] 09-15-2024 14:37-0400 Respiratory rate 18 /min Dr. Patricia Nguyen MD Work Phone: [facility] 09-15-2024 14:37-0400 SaO2% (BldA) [Mass fraction] 96 % Dr. Patricia Nguyen MD Work Phone: [facility] 09-15-2024 14:37-0400 Systolic blood pressure 152 mm[Hg] Dr. Patricia Nguyen MD Work Phone: [facility] 08-13-2024 13:11-0400 Body mass index (BMI) [Ratio] 24.3 kg/m2 Dr. Patricia Nguyen MD Work Phone: [facility] 08-13-2024 13:11-0400 Body temperature 97.8 [degF] Dr. Patricia Nguyen MD Work Phone: [facility] 08-13-2024 13:11-0400 Body weight 88.[address] Patricia Nguyen MD Work Phone: [facility] 08-13-2024 13:11-0400 Diastolic blood pressure 85 mm[Hg] Dr. Patricia Nguyen MD Work Phone: [facility] 08-13-2024 13:11-0400 Heart rate 60 /min Dr. Patricia Nguyen MD Work Phone: [facility] 08-13-2024 13:11-0400 Respiratory rate 18 /min Dr. Patricia Nguyen MD Work Phone: [facility] 08-13-2024 13:11-0400 SaO2% (BldA) [Mass fraction] 98 % Dr. Patricia Nguyen MD Work Phone: [facility] 08-13-2024 13:11-0400 Systolic blood pressure 148 mm[Hg] Dr. Patricia Nguyen MD Work Phone: [facility] 08-08-2024 13:18-0400 Body height 190.[address] Patricia Nguyen MD Work Phone: [facility] 08-06-2024 14:09-0400 Body mass index (BMI) [Ratio] 24.2 kg/m2 Dr. Patricia Nguyen MD Work Phone: [facility] 08-06-2024 14:09-0400 Body temperature 97.7 [degF] Dr. Patricia Nguyen MD Work Phone: [facility] 08-06-2024 14:09-0400 Body weight 87.[address] Patricia Nguyen MD Work Phone: [facility] 08-06-2024 14:09-0400 Diastolic blood pressure 82 mm[Hg] Dr. Patricia Nguyen MD Work Phone: [facility] 08-06-2024 14:09-0400 Heart rate 60 /min Dr. Patricia Nguyen MD Work Phone: [facility] 08-06-2024 14:09-0400 Respiratory rate 14 /min Dr. Patricia Nguyen MD Work Phone: [facility] 08-06-2024 14:09-0400 SaO2% (BldA) [Mass fraction] 97 % Dr. Patricia Nguyen MD Work Phone: [facility] 08-06-2024 14:09-0400 Systolic blood pressure 134 mm[Hg] Dr. Patricia Nguyen MD Work Phone: [facility] 07-30-2024 14:42-0400 Diastolic blood pressure 79 mm[Hg] Dr. Patricia Nguyen MD Work Phone: [facility] 07-30-2024 14:42-0400 Heart rate 80 /min Dr. Patricia Nguyen MD Work Phone: [facility] 07-30-2024 14:42-0400 SaO2% (BldA) [Mass fraction] 93 % Dr. Patricia Nguyen MD Work Phone: [facility] 07-30-2024 14:42-0400 Systolic blood pressure 118 mm[Hg] Dr. Patricia Nguyen MD Work Phone: [facility] 07-30-2024 13:40-0400 Respiratory rate 18 /min Dr. Patricia Nguyen MD Work Phone: [facility] 07-23-2024 08:15-0500 Body temperature 97.8 [degF] Dr. Patricia Nguyen MD Work Phone: [facility] 07-23-2024 08:15-0500 Diastolic blood pressure 73 mm[Hg] Dr. Patricia Nguyen MD Work Phone: [facility] 07-23-2024 08:15-0500 Heart rate 60 /min Dr. Patricia Nguyen MD Work Phone: [facility] 07-23-2024 08:15-0500 Respiratory rate 16 /min Dr. Patricia Nguyen MD Work Phone: [facility] 07-23-2024 08:15-0500 SaO2% (BldA) [Mass fraction] 94 % Dr. Patricia Nguyen MD Work Phone: [facility] 07-23-2024 08:15-0500 Systolic blood pressure 122 mm[Hg] Dr. Patricia Nguyen MD Work Phone: [facility] 07-23-2024 08:10-0500 Inhaled oxygen flow rate 5 L/min Dr. Patricia Nguyen MD Work Phone: [facility] 07-23-2024 06:41-0500 Body mass index (BMI) [Ratio] 23.9 kg/m2 Dr. Patricia Nguyen MD Work Phone: [facility] 07-23-2024 06:41-0500 Body weight [address] Patricia Nguyen MD Work Phone: [facility] 06-18-2024 09:50-0500 Body mass index (BMI) [Ratio] 24.1 kg/m2 Dr. Patricia Nguyen MD Work Phone: [facility] 06-18-2024 09:50-0500 Body temperature 98.1 [degF] Dr. Patricia Nguyen MD Work Phone: [facility] 06-18-2024 09:50-0500 Body weight 87.[address] Patricia Nguyen MD Work Phone: [facility] 06-18-2024 09:50-0500 Diastolic blood pressure 77 mm[Hg] Dr. Patricia Nguyen MD Work Phone: [facility] 06-18-2024 09:50-0500 Heart rate 60 /min Dr. Patricia Nguyen MD Work Phone: [facility] 06-18-2024 09:50-0500 Respiratory rate 16 /min Dr. Patricia Nguyen MD Work Phone: [facility] 06-18-2024 09:50-0500 SaO2% (BldA) [Mass fraction] 95 % Dr. Patricia Nguyen MD Work Phone: [facility] 06-18-2024 09:50-0500 Systolic blood pressure 121 mm[Hg] Dr. Patricia Nguyen MD Work Phone: [facility] 05-20-2024 10:01-0500 Body mass index (BMI) [Ratio] 24 kg/m2 Dr. Patricia Nguyen MD Work Phone: [facility] 05-20-2024 10:01-0500 Body temperature 98.1 [degF] Dr. Patricia Nguyen MD Work Phone: [facility] 05-20-2024 10:01-0500 Body weight 87.[address] Patricia Nguyen MD Work Phone: [facility] 05-20-2024 10:01-0500 Diastolic blood pressure 79 mm[Hg] Dr. Patricia Nguyen MD Work Phone: [facility] 05-20-2024 10:01-0500 Heart rate 61 /min Dr. Patricia Nguyen MD Work Phone: [facility] 05-20-2024 10:01-0500 Respiratory rate 16 /min Dr. Patricia Nguyen MD Work Phone: [facility] 05-20-2024 10:01-0500 SaO2% (BldA) [Mass fraction] 96 % Dr. Patricia Nguyen MD Work Phone: [facility] 05-20-2024 10:01-0500 Systolic blood pressure 133 mm[Hg] Dr. Patricia Nguyen MD Work Phone: [facility] 03-06-2023 11:02-0400 Body height 190.[address] Patricia Nguyen Work Phone: [facility] 06-09-2022 07:59-0500 Body height 190.[address] Patricia Nguyen Work Phone: [facility] 06-09-2022 07:59-0500 Body mass index (BMI) [Ratio] 23.3 kg/m2 Dr. Patricia Nguyen Work Phone: [facility] 06-09-2022 07:59-0500 Body temperature 96.5 [degF] Dr. Patricia Nguyen Work Phone: [facility] 06-09-2022 07:59-0500 Body weight 84.[address] Patricia Nguyen Work Phone: [facility] 06-09-2022 07:59-0500 Diastolic blood pressure 68 mm[Hg] Dr. Patricia Nguyen Work Phone: [facility] 06-09-2022 07:59-0500 Heart rate 60 /min Dr. Patricia Nguyen Work Phone: [facility] 06-09-2022 07:59-0500 Respiratory rate 16 /min Dr. Patricia Nguyen Work Phone: [facility] 06-09-2022 07:59-0500 SaO2% (BldA) [Mass fraction] 99 % Dr. Patricia Nguyen Work Phone: [facility] 06-09-2022 07:59-0500 Systolic blood pressure 102 mm[Hg] Dr. Patricia Nguyen Work Phone: [facility] 03-23-2022 08:34-0400 Body mass index (BMI) [Ratio] 22.5 kg/m2 Dr. Patricia Nguyen Work Phone: [facility] 03-23-2022 08:34-0400 Body weight 81.[address] Patricia Nguyen Work Phone: [facility] 03-23-2022 08:34-0400 Diastolic blood pressure 77 mm[Hg] Dr. Patricia Nguyen Work Phone: [facility] 03-23-2022 08:34-0400 Heart rate 60 /min Dr. Patricia Nguyen Work Phone: [facility] 03-23-2022 08:34-0400 Respiratory rate 16 /min Dr. Patricia Nguyen Work Phone: [facility] 03-23-2022 08:34-0400 SaO2% (BldA) [Mass fraction] 99 % Dr. Patricia Nguyen Work Phone: [facility] 03-23-2022 08:34-0400 Systolic blood pressure 131 mm[Hg] Dr. Patricia Nguyen Work Phone: [facility] 12-07-2021 09:01-0400 Body height 190.[address] Patricia Nguyen Work Phone: [facility] Work Phone: 12-07-2021 09:01-0400 Body mass index (BMI) [Ratio] 22.4 kg/m2 Dr. Patricia Nguyen Work Phone: [facility] Work Phone: 12-07-2021 09:01-0400 Body temperature 98.4 [degF] Dr. Patricia Nguyen Work Phone: [facility] Work Phone: 12-07-2021 09:01-0400 Body weight 81.[address] Patricia Nguyen Work Phone: [facility] Work Phone: 12-07-2021 09:01-0400 Diastolic blood pressure 72 mm[Hg] Dr. Patricia Nguyen Work Phone: [facility] Work Phone: 12-07-2021 09:01-0400 Heart rate 60 /min Dr. Patricia Nguyen Work Phone: [facility] Work Phone: 12-07-2021 09:01-0400 Respiratory rate 18 /min Dr. Patricia Nguyen Work Phone: [facility] Work Phone: 12-07-2021 09:01-0400 SaO2% (BldA) [Mass fraction] 98 % Dr. Patricia Nguyen Work Phone: [facility] Work Phone: 12-07-2021 09:01-0400 Systolic blood pressure 118 mm[Hg] Dr. Patricia Nguyen Work Phone: [facility] Work Phone: 11-11-2021 12:05-0400 Body temperature 96.9 [degF] Dr. Patricia Nguyen Work Phone: [facility] Work Phone: 11-11-2021 12:05-0400 Diastolic blood pressure 78 mm[Hg] Dr. Patricia Nguyen Work Phone: [facility] Work Phone: 11-11-2021 12:05-0400 Heart rate 60 /min Dr. Patricia Nguyen Work Phone: [facility] Work Phone: 11-11-2021 12:05-0400 Respiratory rate 16 /min Dr. Patricia Nguyen Work Phone: [facility] Work Phone: 11-11-2021 12:05-0400 SaO2% (BldA) [Mass fraction] 100 % Dr. Patricia Nguyen Work Phone: [facility] Work Phone: 11-11-2021 12:05-0400 Systolic blood pressure 126 mm[Hg] Dr. Patricia Nguyen Work Phone: [facility] Work Phone: 11-11-2021 09:57-0400 Body height 190.[address] Patricia Nguyen Work Phone: [facility] Work Phone: 11-11-2021 09:57-0400 Body mass index (BMI) [Ratio] 21.8 kg/m2 Dr. Patricia Nguyen Work Phone: [facility] Work Phone: 11-11-2021 09:57-0400 Body weight 79.[address] Patricia Nguyen Work Phone: [facility] Work Phone: 09-19-2021 09:47-0400 Body mass index (BMI) [Ratio] 22.5 kg/m2 Dr. Patricia Nguyen Work Phone: [facility] Work Phone: 09-19-2021 09:47-0400 Body weight 81.[address] Patricia Nguyen Work Phone: [facility] Work Phone: Encounters Encounter Date Encounter Type Care Provider Facility Start: 10-06-2024 End: 10-06-[address] Patricia Nguyen MD Work Phone: [facility] Work Phone: Start: 10-06-2024 End: 10-06-[address] Paddy Adhikari MD -[facility] Work Phone: Start: 09-15-2024 End: 09-15-[address] Dandre Carvalho DO [facility] [place] Work Phone: Start: 09-15-2024 End: 09-15-2024 ambulatory Dandre Alcester Facility:[facility] Start: 08-15-2024 Non-patient / Non-visit Dr. Dandre bolden [facility] Work Phone: Start: 08-15-2024 ambulatory Dandre Alcester Facility: [facility] Start: 08-15-[address] Dandre Butts on DO -Radiation Oncology Start: 08-15-2024 Non-patient / Non-visit Dr. Dandre bolden [facility] Work Phone: Start: 08-15-2024 ambulatory Dandre Carvalho Facility: [facility] Start: 08-13-2024 End: 08-13-[address] Dandre Carvalho DO [facility] [place] Work Phone: Start: 08-13-2024 End: 08-13-2024 ambulatory Dandre Carvalho Facility:[facility] Start: 08-11-2024 Non-patient / Non-visit Dr. Dandre bolden [facility] Work Phone: Start: 08-11-2024 ambulatory Dandre Carvalho Facility: [facility] Start: 08-08-2024 Non-patient / Non-visit Dr. Dandre bolden [facility] Work Phone: Start: 08-08-2024 ambulatory Dandre Carvalho Facility: [facility] Start: 08-08-[address] Dandre Butts on DO -Radiation Oncology Start: 08-08-2024 End: 08-08-2024 Patient encounter procedure Adithya HOLDER -[facility] Work Phone: Start: 08-08-2024 End: 08-08-2024 ambulatory Patricia Nguyen Facility:[facility] Start: 08-06-2024 Non-patient / [facility] [place] Work Phone: Start: 08-06-2024 ambulatory Dandre Deven [facility]: [facility] Start: 08-05-2024 ambulatory Dandre Alcester [facility]: [facility] Start: 08-05-2024 Non-patient / Non-[facility] Start: 08-01-2024 ambulatory Dandre Carvalho [facility]: [facility] Start: 08-01-2024 Non-patient / Non-visit Dr. Dandre bolden [facility] Start: 07-30-2024 End: 07-30-2024 Patient encounter procedure Genny Edgar -[facility] Work Phone: Start: 07-30-2024 End: 07-30-2024 ambulatory Paddy Adhikari Facility:[facility] Start: 07-30-2024 Non-patient / Non-visit Dr. Dandre bolden [facility] Start: 07-30-2024 End: 07-30-[address] Patricia Nguyen MD Work Phone: [facility] Work Phone: Start: 07-30-2024 End: 07-30-[address] Dandre Carvalho DO [facility] Work Phone: Start: 07-30-2024 End: 07-30-2024 ambulatory Dandre Deven Facility:[facility] Start: 07-23-2024 End: 07-23-2024 Admission to same day surgery center Dr. James Saldaña MD -[facility] Start: 07-23-2024 End: 07-23-2024 ambulatory James Saldaña Facility:[facility] Start: 07-07-2024 End: 07-07-2024 ambulatory Paddy Adhikari [facility] Start: 07-07-2024 End: 07-07-[address] Paddy Adhikari MD -[facility] Work Phone: Start: 06-18-2024 End: 06-18-2024 ambulatory [place] Zeynep Facility:[facility] Start: 06-18-2024 End: 06-18-[address] Paddy Adhikari MD -[facility] Work Phone: Start: 05-20-2024 End: 05-20-[address] Dandre Carvalho DO -[facility] Work Phone: Start: 05-20-2024 End: 05-20-2024 ambulatory Dandre Carvalho [facility] Start: 05-12-2024 Non-patient / Non-visit Lissette Teague -[facility] Work Phone: Start: 05-12-2024 ambulatory Lissette Sterling Facility :[facility] Start: 04-29-2024 End: 04-29-[address] James Saldaña MD -Laboratory, Specimen Work Phone: Start: 04-29-2024 End: 04-29-2024 ambulatory James Saldaña Facility:[facility] Start: 04-07-2024 End: 04-07-2024 ambulatory Paddy Zeynep Facility:[facility] Start: 03-21-2024 End: 03-21-2024 ambulatory BIM NURSE Facility:[facility] Start: 03-15-2024 End: 03-15-2024 ambulatory Paddy Zeynep Facility:[facility] Start: 03-14-2024 End: 03-14-2024 ambulatory James Saldaña Facility:[facility] Start: 03-05-2024 End: 03-05-2024 ambulatory James Saldaña Facility:[facility] Start: 12-31-2023 End: 12-31-2023 ambulatory Paddy Zeynep Facility:[facility] Start: 12-18-2023 Encounter for genera l adult medical examination without abnormal findings [facility] Start: 12-17-2023 End: 12-17-2023 ambulatory [facility] Facility:[facility] Start: 12-17-2023 End: 12-17-2023 ambulatory [facility] Facility:[facility] Start: 05-02-2023 End: 05-02-[address] Patricia Nguyen Work Phone: [facility] Work Phone: Start: 05-02-2023 End: 05-02-[address] Patricia Nguyen Work Phone: [facility] Start: 03-12-2023 End: 03-12-[address] Patricia Nguyen Work Phone: [facility] Work Phone: Start: 12-08-[address] Patricia Nguyen Work Phone: [facility] Start: 06-09-2022 End: 06-09-[address] Patricia Nguyen Work Phone: [facility] Start: 06-05-2022 Non-patient / Non-visit Dr. Tuyet Nguyen Work Phone[facility] Start: 06-05-2022 End: 06-05-[address] Patricia Nguyen Work Phone: [facility] Work Phone: Start: 06-05-2022 End: 06-05-[address] [facility] Start: 04-09-2022 End: 04-09-[address] Patricia Nguyen Work Phone: [facility] Start: 03-23-2022 End: 03-23-[address] Patricia Nguyen Work Phone: [facility] Start: 12-07-[address] Salena Nguyen Work Phone: [facility] Start: 12-07-2021 End: 12-07-2021 Encounter for general adult medical examination without abnormal findings Dr. Patricia Nguyen Work Phone: [facility] Start: 12-07-2021 End: 12-07-[address] Patricia Nguyen Work Phone: [facility] Start: 11-11-2021 Non-patient / Non-visit Dr. Tuyet Nguyen Work Phone: [facility] Start: 11-11-2021 End: 11-11-2021 Admission to same day surgery center Dr. Patricia Nguyen Work Phone: [facility] Start: 09-20-2021 Non-patient / Non-visit Dr. Tuyet Nguyen Work Phone: [facility] Start: 09-19-2021 Non-patient / Non-visit Dr. Tuyet Nguyen Work Phone: [facility] Start: 09-07-2021 End: 09-07-[address] Patricia Nguyen Work Phone: [facility] Start: 06-08-[address] Patricia Nguyen Work Phone: [facility] Procedures Date Procedure Procedure Detail Performing Clinician Start: 07-30-2024 MRI of pelvis with contrast Dr. Patricia Nguyen MD Work Phone: Start: 11-11-[address] Cassandra Nguyen Work Phone: Plan of Treatment Date Care Activity Detail Author Start: 07-23-2024 Anesthesia anorectal procedure ANESTH ANORECTAL SURGERY [facility] Start: 07-23-2024 Plmt interstitial de v radiat tx prostate 1/mult PLACE RT DEVICE/MARKER PROS [facility] Start: 07-23-2024 End: 07-23-2024 Patient discharge [facility] Start: 07-23-2024 Ambulation without limitation [facility] Start: 07-23-2024 Medical regimen orde rs management [facility] Start: 07-23-2024 Medication education [facility] Start: 07-23-2024 Taking patient vital signs [facility] Start: 07-23-[address] [facility] Start: 11-11-2021 Colonoscopy w/biopsy single/multiple COLONOSCOPY AND BIOPSY [facility] Work Phone: Start: 11-11-2021 Patient discharge [facility] Work Phone: Colonoscopy [facility] Work Phone: Patient referral [facility] Work Phone: Prostate specific antigen measurement [facility] Immunizations Immunization Date Immunization Notes Care Provider [facility] 03-21-2024 Seasonal trivalent influenza vaccine, adjuvanted, preservative free Dr. Patricia Nguyen MD Work Phone: [facility] 03-12-2023 influenza, injectabl e, quadrivalent, preservative free Dr. Patricia Nguyen Work Phone: [facility] 04-28-2021 Covid (Pfizer) Dr. Patricia Nguyen MD Work Phone: [facility] 08-24-2020 Covid (Pfizer) Dr. Patricia Nguyen Work Phone: [facility] 08-03-2020 Covid (Pfizer) Dr. Patricia Nguyen Work Phone: [facility] 03-15-2020 influenza, injectable,quadrivalent , preservative free, pediatric Dr. Patricia Nguyen Work Phone: [facility] 12-15-2019 tetanus toxoid, redu michel diphtheria toxoid, and acellular pertussis vaccine, adsorbed Dr. Patricia Nguyen Work Phone: [facility] 04-21-2019 influenza, injectabl e, quadrivalent, preservative free Dr. Patricia Nguyen MD Work Phone: [facility] 03-08-2018 influenza, injectabl e, quadrivalent, preservative free Dr. Patricia Nguyen MD Work Phone: [facility] 12-13-2017 tetanus toxoid, redu michel diphtheria toxoid, and acellular pertussis vaccine, adsorbed Dr. Patricia Nguyen MD Work Phone: [facility] 05-10-2015 influenza, injectabl e, quadrivalent, preservative free Dr. Patricia Nguyen MD Work Phone: [facility] 05-04-2014 influenza, injectabl e, quadrivalent, preservative free Dr. Patricia Nguyen MD Work Phone: [facility] Payers Date Payer Category Payer Medicare [id number] 2023 Unknown [id number] 2023 Self-pay [id number] Unknown [id number] 40.1.667244.3.579.2.462 Unknown [id number] 2.16.8 40.1.010473.3.579.2.462 Unknown [id number] 2.16.8 40.1.765317.3.579.2.462 Unknown [id number] 2.16.8 40.1.246201.3.579.2.462 Unknown [id number] 2.16.8 40.1.486152.3.579.2.462 Unknown [id number] 2.16.8 40.1.640380.3.579.2.462 Unknown [id number] 2.16.8 40.1.310924.3.579.2.462 Unknown [id number] 2.16.8 40.1.414303.3.579.2.462 Unknown [id number] 2.16.8 40.1.680636.3.579.2.462 Unknown [id number] 2.16.8 40.1.027047.3.579.2.462 Unknown [id number] 2.16.8 40.1.817547.3.579.2.462 Unknown [id number] 2.16.8 40.1.510128.3.579.2.462 Unknown [id number] 2.16.8 40.1.418340.3.579.2.462 Unknown [id number] 2.16.8 40.1.200801.3.579.2.462 Unknown [id number] 2.16.8 40.1.827295.3.579.2.462 Unknown [id number] 2.16.8 40.1.247246.3.579.2.462 Unknown [id number] 2.16.8 40.1.790280.3.579.2.462 Unknown [id number] 2.16.8 40.1.384931.3.579.2.462 Unknown [id number] 2.16.8 40.1.905327.3.579.2.462 Unknown [id number] 2.16.8 40.1.415799.3.579.2.462 Unknown [id number] 2.16.8 40.1.463338.3.579.2.462 Unknown [id number] 2.16.8 40.1.888875.3.579.2.462 Unknown [id number] 2.16.8 40.1.634472.3.579.2.462 Unknown [id number] 2.16.8 40.1.104300.3.579.2.462 Unknown [id number] 2.16.8 40.1.957583.3.579.2.462 Unknown [id number] 2.16.8 40.1.693531.3.579.2.462 Unknown [id number] 2.16.8 40.1.502368.3.579.2.462 Unknown [id number] 2.16.8 40.1.692757.3.579.2.462 Unknown [id number] 2.16.8 40.1.597360.3.579.2.462 Unknown [id number] 2.16.8 40.1.746223.3.579.2.462 Unknown [id number] 2.16.8 40.1.120043.3.579.2.462 Unknown [id number] 2.16.8 40.1.959314.3.579.2.462 Unknown [id number] 2.16.8 40.1.742736.3.579.2.462 Unknown [id number] 2.16.8 40.1.903927.3.579.2.462 Unknown [id number] 2.16.8 40.1.299658.3.579.2.462 Social History Date Type Detail Facility Start: 11-10-2021 End: 03-12-2023 Tobacco smoking status NEIS Unknown if ever smoked [facility] Start: 06-12-[address] [facility] Start: 06-12-[address] [facility] Start: 06-12-[address] [facility] Start: 1960 Sex Assigned At Male [facility] Start: 07-09-2024 [facility] Start: 08-09-2024 Sex Male (finding) [facility] Medical Equipment Procedure Code Equipment Code Equipment Origin al Text Equipment Identifier Dates Injection, hydrogel spacer MARKERS, FIDUCIAL GOLD FDA Start: 07-23-2024 Injection, hydrogel spacer Radiotherapy protection spacer [id number] FDA Start: 07-23-2024 Injection, hydrogel spacer MARKERS, FIDUCIAL GOLD FDA Start: 07-23-2024 Injection, hydrogel spacer MARKERS, FIDUCIAL GOLD FDA Start: 07-23-2024 Injection, hydrogel spacer MARKERS, FIDUCIAL GOLD FDA Start: 07-23-2024 [employer] FDA Start: 03-07-2018 [employer] FDA Start: 03-07-2018 [employer] FDA Start: 03-07-2018 [employer] FDA Start: 03-07-2018 [employer] FDA Start: 03-07-2018 [employer] FDA Start: 03-07-2018 [employer] FDA Start: 03-07-2018 [employer] FDA Start: 03-07-2018 [employer] FDA Start: 03-07-2018 [employer] FDA Start: 03-07-2018 [employer] FDA Start: 03-07-2018 [employer] FDA Start: 03-07-2018 [employer] FDA Start: 03-07-2018 [employer] FDA Start: 03-07-2018 [employer] FDA Start: 03-07-2018 [employer] FDA Start: 03-07-2018 Goals Date Patient Goal Desired Activity /State Mental Status Date Assessment Result Facility 07-23-2024 Cognitive function Deep Pain [facility] Work Phone: 11-11-2021 Cognitive function Voice/Name [facility] Work Phone: Clinical Note 07-23-2024 Note Date & Type Note Facility 07-23-2024 Note [facility] Medical Records Department [address] [place] [address] History Physical Exam 07/23/24 0714 MR#: [id number] Acct: [id number] Name: AMPARO MCDANIELDON Rep #: [id number] : 1960 63 From: James Saldaña MD PCP: Dr. Patricia Nguyen MD Status:[facility] Location: [place] [address] HPI - General General Date of Service: 07/23/24 Chief Complaint: prostate cancer HPI Narrative AMPARO MCDANIEL, is a 63 M who presents for placement of gold markers and spacer gel for radiation treatments. [facility] Medical History Arthritis Cancer Prostate disease Heartburn Gastric reflux Former smoker Hypertension History of pacemaker Cardiology follow-up encounter Abnormal prostate biopsy Prostate cancer Localized skin mass, lump, or swelling Erectile dysfunction Flu vaccine need Elevated PSA Preventative health care Blood glucose elevated Normal colonoscopy Wears glasses Gout High cholesterol Health care maintenance Colon cancer screening Right knee pain Paroxysmal atrial fibrillation Non-ischemic cardiomyopathy Essential (primary) hypertension Left bundle branch block (LBBB) Home Medications ???Medication ???Instructions ???Recorded ???Last Taken ???Type belqozfvvvpy-Zh-gzaw-minerals 18 1 tab PO DAILY 12/02/19 Unknown Hi story mg-0.4 mg tablet (Maximum Daily Multivitamin) cetirizine 10 mg capsule (Zyrtec) 10 mg PO DAILY PRN allergy sympto ms 12/07/21 Unknown History carvedilol 6.25 mg tablet (Coreg) 6.25 mg PO BID #180 tabs 11/23/23 Unknown Rx aspirin 81 mg tablet,delayed 81 mg PO DAILY 12/17/23 Unknown Hi story release (Adult Low Dose Aspirin) atorvastatin 40 mg tablet 40 mg PO DAILY #90 tabs 02/11/24 U nknown Rx allopurinol 100 mg tablet 100 mg PO BID #180 tabs 05/20/24 U nknown Rx amlodipine 5 mg tablet 5 mg PO DAILY #90 tabs 05/20/24 Un known Rx lisinopril 40 mg tablet 40 mg PO DAILY blood pressure #90 05/20/24 Unknown Rx tabs tadalafil 5 mg tablet 5 mg PO DAILY PRN sexual activity 07/09/24 Unknown History Allergy/AdvReac Type Severity Reaction Status Date / Time No Known Allergies Allergy Verified 07/23/24 06:35 Family History Unknown No problems noted. Mother Alzheimer's dementia Mother Hypertension Father CVA (cerebral vascular accident) Hypertension Surgical History History of colonoscopy History of ear surgery History of tonsillectomy History of radiofrequency ablation procedure for cardiac arrhythmia (03/07/18) Biventricular implantable cardioverter-defibrillator (ICD) in situ (03/07/18) History of left heart catheterization (06/13/17) Social History adopted: No household members: none number of children: 1 current occupational status: retired pets and animals: No Smoking Status: Former smoker quit date: 05/21/09 pack-years: 15 alcohol intake: current alcohol intake frequency: a few times a month substance use type: does not use caffeine: Yes (2-3) Type: coffee frequency: 3-4 times per week seatbelt use: always do you feel safe at home: Yes Vital Signs Vital Signs Vital Signs: 07/23/24 06:41 07/23/24 06:41 Temperature 97.5 F L Temperature Source Temporal Pulse Rate 59 L Respiratory Rate 16 Respiratory Pattern Normal Blood Pressure 170/77 H Blood Pressure Mean 108 Blood Pressure Source Monitor Blood Pressure Position Semi-Fowlers Blood Pressure Location Right Arm Pulse Ox 99 Oxygen Delivery Method Room Air Weight Weight: 87 kg Body Mass Index (BMI) 23.9 07/23/24 0715 Cosigner Signature (if applicable): CC: Dr. Patricia Nguyen MD; Dr. James Saldaña MD Signed [facility] Evaluation note 05-20-2024 Note Date & Type Note Facility 05-20-2024 Evaluation note Diagnosis Onset Date Resolution Cancer of prostate with intermediate recurrence risk (stage T2b-c or Gleaso acute May 20, 2024 9:46am Biventricular implantable cardioverter-defibri llator (ICD) in situ March 07, 2018 chronic June 18, 2024 9:21am Left bundle branch block (LBBB) chronic June 18, 2024 9:21am Non-ischemic cardiomyopathy chronic June 18, 2024 9:21am Biventricular implantable cardioverter-defibri llator (ICD) in situ March 07, 2018 chronic June 18, 2024 9:21am Essential (primary) hypertension chronic June 18, 2024 9:21am Hyperlipidemia chronic June 182024 9:21am Non-ischemic cardiomyopathy chronic June 18, 2024 9:21am Paroxysmal atrial fibrillation chronic June 18, 2024 9:21am Biventricular implantable cardioverter-defibri llator (ICD) in situ March 07, 2018 chronic July 30, 2024 2:04pm Left bundle branch block (LBBB) chronic July 30, 2024 2:04pm Non-ischemic cardiomyopathy chronic July 30, 2024 2:04pm Paroxysmal atrial fibrillation chronic July 30, 2024 2:04pm Rotator cuff impingement syndrome of right shoulder acute August 08, 2024 7:24am [facility] Work Phone: Clinical Note 08-03-2020 Note Date & Type Note Facility 08-03-2020 Note Patient Outreach (FA MPWS) AMPARO MCDANIEL ([id number]) 1960 M Date Time Provider Department 08/03/20 [facility] JUDD[facility] During your visit today, we recorded the following information about you: Sheron Judd Ma 08/03/2020 9:49 AM Signed POPULATION HEALTH NAVIGATION OUTREACH Action/ Hypertension. Message left for pt to call [...] Message Sent to Practice: NO Navigation Signature: Sheron Judd Ma August 03, 2020 9:40 AM Allergies As of Date: 08/03/2020 (No Known Allergies) Date Reviewed: 12/30/2018 Reviewed by: Segundo Gordon) Donovan - Fully Assessed Reason for Visit: [...] d* Patient not taking: Reported on 12/30/2018 [id number] C-M* Take by mouth. Take one(1) t* [...] cardiac defibr*04/19/2018 Letter Text Encounter Status:Closed by SHERON JUDD MA on 08/03/20 [facility] Progress note 08-03-2020 Note Date & Type Note Facility 08-03-2020 Note HNO ID: [id number] Author: Sheron Judd Ma Service: ? Author Type: ? Type: Progress Notes Filed: 08/03/2020 9:49 AM Note Text: POPULATION HEALTH NAVIGATION OUTREACH Action/FYI Hypertension. Message [...] Care Gap or Scheduling/Wellness visits Payer: Payor: [employer] / Plan: BLUE CARD PPO / Product [...] Message Sent to Practice: NO Navigation Signature: Sheron Judd Ma August 03, 2020 9:40 AM [facility] Evaluation note 03-07-2018 Note Date & Type Note Facility 03-07-2018 Evaluation note Diagnosis Onset Date Biventricular implantable cardioverter-defibrillator (ICD) in situ March 07, 2018 chronic Left bundle branch block (LBBB) chronic Non-ischemic cardiomyopathy chronic Paroxysmal atrial fibrillation chronic Colon cancer screening [facility] Work Phone: Evaluation note 03-07-2018 Note Date & Type Note Facility 03-07-2018 Evaluation note Diagnosis Onset Date Biventricular implantable cardioverter-defibrillator (ICD) in situ March 07, 2018 chronic Left bundle branch block (LBBB) chronic Non-ischemic cardiomyopathy chronic Paroxysmal atrial fibrillation chronic Colon cancer screening acute Health care maintenance acut e Essential (primary) hypertension chronic Gout chronic Hyperlipidemia [facility] Work Phone: Evaluation note 03-07-2018 Note Date & Type Note Facility 03-07-2018 Evaluation note Diagnosis Onset Date Biventricular implantable cardioverter-defibrillator (ICD) in situ March 07, 2018 chronic Essential (primary) hypertension chronic Hyperlipidemia chronic Non-ischemic cardiomyopathy chronic Paroxysmal atrial fibrillation chronic Biventricular implantable cardioverter-defibrillator (ICD) in situ March 07, 2018 chronic Left bundle branch block (LBBB) chronic Non-ischemic cardiomyopathy chronic Paroxysmal atrial fibrillation chronic Essential (primary) hypertension chronic Gout chronic Non-ischemic cardiomyopathy chronic [facility] Work Phone: Evaluation note 03-07-2018 Note Date & Type Note Facility 03-07-2018 Evaluation note Diagnosis Onset Date Resolution Biventricular implantable cardioverter-defibri llator (ICD) in situ March 07, 2018 chronic July 30, 2024 2:04pm Left bundle branch block (LBBB) chronic July 30, 2024 2:04pm Non-ischemic cardiomyopathy chronic July 30, 2024 2:04pm Paroxysmal atrial fibrillation chronic July 30, 2024 2:04pm Rotator cuff impingement syndrome of right shoulder acute August 08, 2024 7:24am Cancer of prostate with intermediate recurrence risk (stage T2b-c or Gleaso acute August 13, 2024 12:23pm Cancer of prostate with intermediate recurrence risk (stage T2b-c or Gleaso acute September 15, 2024 2:17pm [facility] Work Phone: Evaluation note Note Date & Type Note Facility Evaluation note Diagnosis Onset Date Flu vaccine need acute [facility] Work Phone: Reason for referral (narrative) Note Date & Type Note Facility Reason for referral (narrative) No reason for referral information available [facility] Work Phone: Summary Purpose Family History No Family History Records Found Relationship Condition Age at Onset Recorded Date/T cassy mother Alzheimer's disease Unknown mother Hypertension Unknown father Cerebrovascular accident (CVA) Unknown Hypertension Unknown Advance Directives No Advanced Directives Records Found Advance Directive Response Recorded Date/ Time Name of Medical Power of Casing Cooker Natividad Giles November 10, 2021 2:35pm Living Will Yes November 10, 2021 2:35pm Power of Casing Cooker Yes November 10 2:35pm Advance Directive Response Recorded Date/ Time Living Will Yes November 10, 2021 1:35pm Power of Casing Cooker Yes November 10 1:35pm Advance Directive Response Recorded Date/ Time Living Will Yes March 06 10:02am Power of Casing Cooker Yes March 06, 2023 10:02am Advance Directive Response Recorded Date/ Time Living Will Yes March 06 11:02am Do you have a Healthcare Power of Casing Cooker? Yes March 06, 2023 11:02am Living Will Yes July 09 025 2:08pm Do you have a Healthcare Power of Casing Cooker? Yes July 09, 2024 2:08pm Name of Medical Power of Casing Cooker DAUGHTER July 09, 2024 2:08pm Advance Directive Response Recorded Date/ Time Living Will Yes July 09 025 2:08pm Do you have a Healthcare Power of Casing Cooker? Yes July 09, 2024 2:08pm Name of Medical Power of Casing Cooker DAUGHTER July 09, 2024 2:08pm Chief Complaint and Reason for Visit Chief Complaint 3 mos remote WARDROBE MISTRESS-D f /u Amb Documentation Amb Documentation Reason for Visit Biventricular implan table cardioverter-defibrillator (ICD) in situ Left bundle branch block (LBBB) Non-ischemic cardiomyopathy Paroxysmal atrial fibrillation Colon cancer screening Chief Complaint 3 mos remote WARDROBE MISTRESS-D f /u Amb Documentation Amb Documentation 6 M FU Reason for Visit Biventricular implan table cardioverter-defibrillator (ICD) in situ Left bundle branch block (LBBB) Non-ischemic cardiomyopathy Paroxysmal atrial fibrillation Colon cancer screening Health care maintenance Essential (primary) hypertension Gout Hyperlipidemia Chief Complaint 8M FU 3 mos remote ICD f/u Other cardiomyopathies 6 m fu Reason for Visit Biventricular implan table cardioverter-defibrillator (ICD) in situ Essential (primary) hypertension Hyperlipidemia Non-ischemic cardiomyopathy Paroxysmal atrial fibrillation Biventricular implantable cardioverter-defibrillator (ICD) in situ Left bundle branch block (LBBB) Non-ischemic cardiomyopathy Paroxysmal atrial fibrillation Essential (primary) hypertension Gout Non-ischemic cardiomyopathy Chief Complaint FLU SHOT Reason for Visit Flu vaccine need Chief Complaint Admit Date PROSTATE BX April 29, 2024 4:23pm Amb Documentation May 12, 2024 3:50pm PROSTATE CANCER May 20, 2024 9:46am Pacer Check Remote June 18, 2024 9 :00am 1 Y FU/MEENAKSHI @ 8:30 June 18, 2024 9 :21am Pacer Check Remote July 07, 2024 12:51am Space OAR July 23, 2024 5:54 am C61 Malignant neoplasm of prostate July 30, 2024 12:59pm MRI PROGRAMMING IN MRI July 30, 2024 2:04pm Amb Documentation August 06, 2024 2:0 8pm R shoulder pain August 08, 2024 7:2 4am . August 08, 2024 12: 50pm Amb Documentation August 08, 2024 1:1 7pm Reason for Visit Admit Date Cancer of prostate with inte rmediate recurrence risk (stage T2b-c or Gleaso May 20, 2024 9:46am Biventricular implantable ca rdioverter-defibrillator (ICD) in situ June 18, 2024 9:21am Left bundle branch block (LBBB) June 18, 2024 9:21am Non-ischemic cardiomyopathy May 9:21am Essential (primary) hypertension June 18, 2024 9:21am Hyperlipidemia June 18, 2024 9 :21am Paroxysmal atrial fibrillation May 222024 9:21am Biventricular implantable ca rdioverter-defibrillator (ICD) in situ July 30, 2024 2:04pm Left bundle branch block (LBBB) July 302024 2:04pm Non-ischemic cardiomyopathy July 30, 2024 2:04pm Paroxysmal atrial fibrillation July 2:04pm Rotator cuff impingement syndrome of rig ht shoulder August 08, 2024 7:24am Chief Complaint Admit Date Space OAR July 23, 2024 5:54 am Pacer Check Remote July 30, 2024 9:0 0am C61 Malignant neoplasm of prostate July 30, 2024 12:59pm MRI PROGRAMMING IN MRI July 30, 2024 2:04pm Amb Documentation August 06, 2024 2:0 8pm R shoulder pain August 08, 2024 7:2 4am Amb Documentation August 08, 2024 1:1 7pm Amb Documentation August 11, 2024 1:5 1pm OTV August 13, 2024 12: 23pm Amb Documentation August 15, 2024 11: 22am . August 15, 2024 12: 40pm Amb Documentation August 15, 2024 1:1 0pm 1 MONTH F/U POST RT September 15, 2024 2:1 7pm Pacer Check Remote October 06, 2024 12:51 am Reason for Visit Admit Date Biventricular implantable ca rdioverter-defibrillator (ICD) in situ July 30, 2024 2:04pm Left bundle branch block (LBBB) July 302024 2:04pm Non-ischemic cardiomyopathy July 30, 2024 2:04pm Paroxysmal atrial fibrillation July 2:04pm Rotator cuff impingement syndrome of rig ht shoulder August 08, 2024 7:24am Cancer of prostate with inte rmediate recurrence risk (stage T2b-c or Gleaso August 13, 2024 12:23pm Cancer of prostate with inte rmediate recurrence risk (stage T2b-c or Gleaso September 15, 2024 2:17pm Additional Source Comments (unrecognized sect ion and content) No Status Records FoundNo Status Records Found INFORMATION SOURCE (unrecogn ized section and content) DATE CREATED AUTHOR 06/12/2021 [facility] DATE CREATED AUTHOR AUTHOR'S ORGANIZ ATION 11/07/2024 [facility] Care Teams (unrecognized sec tion and content) Team Status: Active Member Role Status Dates Dr. Marian Styles MD Family Provider Active Dr. Patricia Nguyen MD Primary Care Provider Active Team Status: Inactive Member Role Status Dates Dr. Patricia Nguyen MD Primary Care Provider, Refer ring Provider Active Dr. Paddy Adhikari MD Attending Provider Active Team Status: Inactive Member Role Status Dates Dr. Patricia Nguyen MD Primary Care P rovider, Attending Provider, Referring Provider Active Team Status: Inactive Member Role Status Dates Dr. Patricia Nguyen MD Primary Care Provider Active Genny Edgar Active Dr. Paddy Adhikari MD Attending Provider, Referring Pro vider Active Team Status: Active Member Role Status Dates Dr. Patricia Nguyen MD Primary Care Provider Active Dr. Paddy Adhikari MD Attending Provider Active Team Status: Inactive Member Role Status Dates Dr. Patricia Nguyen MD Primary Care Provider Active Dr. Paddy Adhikari MD Attending Provider Active Team Status: Active Member Role Status Dates Dr. Patricia Nguyen MD Primary Care P rovider, Attending Provider, Referring Provider Active Team Status: Active Member Role Status Dates Dr. Patricia Nguyen MD Primary Care Provider Active Team Status: Inactive Member Role Status Dates Dr. Patricia Nguyen MD Primary Care Provider Active Start: April 29, 2024 End: April 29, 2024 Dr. James Saldaña MD Attending Provider Active Start: April 29, 2024 End: April 29, 2024 Dr. James Saldaña MD Referring Provider Active Start: April 29, 2024 End: April 29, 2024 Team Status: Active Member Role Status Dates Dr. Patricia Nguyen MD Primary Care Provider Active Start: May 12, 2024 Lissette Sterling Attending Provider Active Start: May 12, 2024 Team Status: Inactive Member Role Status Dates Dr. Patricia Nguyen MD Primary Care Provider Active Start: May 20, 2024 End: May 20, 2024 Dr. Dandre Carvalho DO Attending Provider Active Start: May 20, 2024 End: May 20, 2024 Dr. James Saldaña MD Referring Provider Active Start: May 20, 2024 End: May 20, 2024 Team Status: Inactive Member Role Status Dates Dr. Patricia Nguyen MD Primary Care Provider Active Start: June 18, 2024 End: June 18, 2024 Dr. Paddy Adhikari MD Attending Provider Active S tart: June 18, 2024 End: June 18, 2024 Team Status: Inactive Member Role Status Dates Dr. Patricia Nguyen MD Primary Care Provider Active Start: June 18, 2024 End: June 18, 2024 Dr. Patricia Nguyen MD Referring Provider Active Start: June 18, 2024 End: June 18, 2024 Amparo Etienne MACHINE CAGE MAKER, MACHINE CAGE MAKER-C Attending Provider Active S tart: June 18, 2024 End: June 18, 2024 Team Status: Inactive Member Role Status Dates Dr. Patricia Nguyen MD Primary Care Provider Active Start: July 07, 2024 End: July 07, 2024 Dr. Paddy Adhikari MD Attending Provider Active S tart: July 07, 2024 End: July 07, 2024 Dr. Paddy Adhikari MD Referring Provider Active S tart: July 07, 2024 End: July 07, 2024 Team Status: Inactive Member Role Status Dates Dr. Patricia Nguyen MD Primary Care Provider Active Start: July 23, 2024 End: July 23, 2024 Dr. James Saldaña MD Attending Provider Active Start: July 23, 2024 End: July 23, 2024 Dr. James Saldaña MD Referring Provider Active Start: July 23, 2024 End: July 23, 2024 Team Status: Active Member Role Status Dates Dr. Patricia Nguyen MD Primary Care Provider Active Start: July 30, 2024 Dr. Dandre Carvalho DO Attending Provider Active Start: July 30, 2024 Team Status: Inactive Member Role Status Dates Dr. Patricia Nguyen MD Primary Care Provider Active Start: July 30, 2024 End: July 30, 2024 Dr. Dandre Carvalho DO Attending Provider Active Start: July 30, 2024 End: July 30, 2024 Dr. Dandre Carvalho DO Referring Provider Active Start: July 30, 2024 End: July 30, 2024 Team Status: Inactive Member Role Status Dates Dr. Patricia Nguyen MD Primary Care Provider Active Start: July 30, 2024 End: July 30, 2024 Dr. Patricia Nguyen MD Referring Provider Active Start: July 30, 2024 End: July 30, 2024 Genny Edgar Attending Provider Active Start: 2024 End: July 30, 2024 Team Status: Active Member Role Status Dates Dr. Patricia Nguyen MD Primary Care Provider Active Start: August 01, 2024 Dr. Dandre Carvalho DO Attending Provider Active Start: August 01, 2024 Team Status: Active Member Role Status Dates Dr. Patricia Nguyen MD Primary Care Provider Active Start: August 05, 2024 Dr. Dandre Carvalho DO Attending Provider Active Start: August 05, 2024 Team Status: Active Member Role Status Dates Dr. Patricia Nguyen MD Primary Care Provider Active Start: August 06, 2024 Dr. Dandre Carvalho DO Attending Provider Active Start: August 06, 2024 Team Status: Inactive Member Role Status Dates Dr. Patricia Nguyen MD Primary Care Provider Active Start: August 08, 2024 End: August 08, 2024 Dr. Patricia Nguyen MD Referring Provider Active Start: August 08, 2024 End: August 08, 2024 GALLO Chairez Attending Provider Active St art: August 08, 2024 End: August 08, 2024 Team Status: Active Member Role Status Dates Dr. Patricia Nguyen MD Primary Care Provider Active Start: August 08, 2024 Dr. Dandre Carvalho DO Attending Provider Active Start: August 08, 2024 Dr. Dandre Carvalho DO Referring Provider Active Start: August 08, 2024 Team Status: Active Member Role Status Dates Dr. Patricia Nguyen MD Primary Care Provider Active Start: August 08, 2024 Dr. Dandre Carvalho DO Attending Provider Active Start: August 08, 2024 Team Status: Inactive Member Role Status Dates Dr. Patricia Nguyen MD Primary Care Provider Active Start: July 30, 2024 End: July 30, 2024 Dr. Paddy Adhikari MD Attending Provider Active S tart: July 30, 2024 End: July 30, 2024 Team Status: Active Member Role Status Dates Dr. Patricia Nguyen MD Primary Care Provider Active Start: July 30, 2024 Dr. Dandre Carvalho DO Attending Provider Active Start: July 30, 2024 Dr. Dandre Carvalho DO Referring Provider Active Start: July 30, 2024 Team Status: Inactive Member Role Status Dates Dr. Patricia Nguyen MD Primary Care Provider Active Start: July 30, 2024 End: July 30, 2024 Dr. Paddy Adhikari MD Attending Provider Active S tart: July 30, 2024 End: July 30, 2024 Dr. Paddy Adhikari MD Referring Provider Active S tart: July 30, 2024 End: July 30, 2024 Team Status: Active Member Role Status Dates Dr. Patricia Nguyen MD Primary Care Provider Active Start: August 01, 2024 Dr. Dandre Carvalho DO Attending Provider Active Start: August 01, 2024 Dr. Dandre Carvalho DO Referring Provider Active Start: August 01, 2024 Team Status: Active Member Role Status Dates Dr. Patricia Nguyen MD Primary Care Provider Active Start: August 05, 2024 Dr. Dandre Carvalho DO Attending Provider Active Start: August 05, 2024 Dr. Dandre Carvalho DO Referring Provider Active Start: August 05, 2024 Team Status: Active Member Role Status Dates Dr. Patricia Nguyen MD Primary Care Provider Active Start: August 06, 2024 Dr. Dandre Carvalho DO Attending Provider Active Start: August 06, 2024 Dr. Dandre Carvalho DO Referring Provider Active Start: August 06, 2024 Team Status: Active Member Role Status Dates Dr. Patricia Nguyen MD Primary Care Provider Active Start: August 11, 2024 Dr. Dandre Carvalho DO Attending Provider Active Start: August 11, 2024 Dr. Dandre Carvalho DO Referring Provider Active Start: August 11, 2024 Team Status: Inactive Member Role Status Dates Dr. Patricia Nguyen MD Primary Care Provider Active Start: August 13, 2024 End: August 13, 2024 Dr. Dandre Carvalho DO Attending Provider Active Start: August 13, 2024 End: August 13, 2024 Dr. Dandre Carvalho DO Referring Provider Active Start: August 13, 2024 End: August 13, 2024 Team Status: Active Member Role Status Dates Dr. Patricia Nguyen MD Primary Care Provider Active Start: August 15, 2024 Dr. Dandre Carvalho DO Attending Provider Active Start: August 15, 2024 Team Status: Active Member Role Status Dates Dr. Patricia Nguyen MD Primary Care Provider Active Start: August 15, 2024 Dr. Dandre Carvalho DO Attending Provider Active Start: August 15, 2024 Dr. Dandre Carvalho DO Referring Provider Active Start: August 15, 2024 Team Status: Inactive Member Role Status Dates Dr. Patricia Nguyen MD Primary Care Provider Active Start: September 15, 2024 End: September 15, 2024 Dr. Patricia Nguyen MD Referring Provider Active Start: September 15, 2024 End: September 15, 2024 Dr. Dandre Carvalho DO Attending Provider Active Start: September 15, 2024 End: September 15, 2024 Team Status: Inactive Member Role Status Dates Dr. Patricia Nguyen MD Primary Care Provider Active Start: October 06, 2024 End: October 06, 2024 Dr. Paddy Adhikari MD Attending Provider Active S tart: October 06, 2024 End: October 06, 2024 Goals (unrecognized section and content) Goals may be documented in a n alternate sectionGoals may be documented in an alternate section FOR RECORDS PERTAINING TO PATIENTS WHO ARE [...] BE BASED ON THE PRIMARY CLINICAL RECORDS. [email or web address] [email or web address]. provides no warranty or guarantee of the accuracy or completeness of information in this document.
[2024-11-10 13:53] LABS: PSA,Total- Diagnostic 1.39 ng/mL (0.00-4.00)
== END | disposition home or self-care (01) ==
LOC: BIMLAB 08:28
PROVIDERS: PCP Internal Medicine; Referring Provider Student in an Organized Health Care Education/Training Program; Visit Provider Student in an Organized Health Care Education/Training Program
DX: C61 Malignant neoplasm of prostate (principal)
CPT/HCPCS: 36415; 84153

== ENCOUNTER → 2024-12-19 | Outpatient (CLI) | payer MEDICARE, OTHER, SELFPAY ==
[2024-12-19 12:23] LABS: Hematocrit 42.5 % (40-54); Hemoglobin 14.7 g/dL (13.0-16.5); Immature Granulocytes Count 0.020 X10^3/uL (0.0-0.0); Mean Corp Hgb Conc 34.6 g/dL (32-36); Mean Corpuscular Volume 90.8 fL (80-94); Mean Platelet Vol. 11.8 fl (6.2-12.0); NRBC Flagged by Analyzer 0 % (0-5); Platelet Count 137 K/mm3 (150-450); RBC Distribution Width CV 13.0 % (11.6-14.6); RBC Distribution Width SD 42.5 fl (35.1-43.9); Red Blood Count 4.68 M/mm3 (4.6-6.2); White Blood Count 4.7 K/mm3 (4.4-11.0)
[2024-12-19 12:59] LABS: Cholesterol 128 mg/dL (<=200); Low Density Lipoprotein Calc. 59 mg/dL; Triglycerides 80 mg/dL; Very Low Density Lipoprotein 16 mg/dL (5-40); cholesterol:hdl ratio screen 2.43
[2024-12-19 13:54] LABS: AST(SGOT) 34 U/L (<=37); Alanine Aminotransfer ALT/SGPT 37 U/L (<=46); Albumin, Serum 4.3 g/dL (3.4-4.8); Alkaline Phosphatase 67 U/L (40-129); Anion Gap 10 (5-15); BUN 13 mg/dL (4-19); BUN/Creat Ratio 13.2 RATIO (10-20); Calcium,Total 9.6 mg/dL (7.6-11.0); Carbon Dioxide 24.9 mmol/L (21.0-32.0); Chloride 106 mmol/L (98-108); Globulin 2.4 g/dL (2.2-4.2); Glucose 118 mg/dL (70-99); Potassium 4.4 mmol/L (3.3-5.1)
== END | disposition home or self-care (01) ==
LOC: BIMLAB 08:32
PROVIDERS: PCP Internal Medicine; Referring Provider Internal Medicine; Visit Provider Internal Medicine
DX: I10 Essential (primary) hypertension (principal)
CPT/HCPCS: 36415; 80053; 80061; 85025

== ENCOUNTER → 2025-05-01 | Outpatient (CLI) | payer MEDICARE, OTHER, SELFPAY ==
[2025-05-01 13:26] LABS: PSA,Total- Diagnostic 0.95 ng/mL (0.00-4.00)
== END | disposition home or self-care (01) ==
LOC: MTLAB 10:52
PROVIDERS: PCP Internal Medicine; Referring Provider Student in an Organized Health Care Education/Training Program; Visit Provider Student in an Organized Health Care Education/Training Program
DX: C61 Malignant neoplasm of prostate (principal)
CPT/HCPCS: 36415; 84153